=== PATIENT | female | born 1995 | race Caucasian/White ===

== ENCOUNTER → 2018-10-29 17:31 | Outpatient (CLI) | payer OTHER, SELFPAY ==
[2018-10-29 16:16] VITALS: BMI 33.7
[2018-10-29 17:49] LABS: Protein, Urine (Random) < 6.0 mg/dL (<11.9)
== END ==
PROVIDERS: Referring Provider Obstetrics & Gynecology; Visit Provider Obstetrics & Gynecology
DX: O16.9 Unspecified maternal hypertension, unspecified trimester (principal); Z3A.00 Weeks of gestation of pregnancy not specified
CPT/HCPCS: 82570; 84156

== ENCOUNTER → 2018-12-23 15:07 | Outpatient (CLI) | payer OTHER, SELFPAY ==
[2018-12-23 15:00] VITALS: BMI 33.7
[2018-12-23 16:22] LABS: Absolute Lymphocyte Count 2.01 X10^3/ul (0.83-4.51); Basophil# 0.01 X10^3/uL; Basophil% 0.1 % (0-1); Eosinophil# 0.11 X10^3/uL; Eosinophils% 1.1 % (0-5); Hematocrit 29.6 % (37-47); Hemoglobin 9.7 g/dl (12.0-15.0); Lymphocyte # 2.01 X10^3/ul (4.0); Lymphocyte % 20.3 % (19-41); Mean Corp Hgb Conc 32.8 g/gl (32-36); Mean Corpuscular Hgb 29.4 pg (27.0-32.0); Mean Corpuscular Volume 89.7 fL (81-99); Mean Platelet Vol. 9.3 fl (6.2-12.0); Monocyte# 0.79 X10^3/uL; Neutrophil # 6.96 X10^3/uL (2.7-7.7); Neutrophil % 70.1 % (47-70); Platelet Count 361 K/mm3 (150-450); RBC Distribution Width CV 13.5 % (11.6-14.6); RBC Distribution Width SD 43.8 fl (35.1-43.9); White Blood Count 9.9 K/mm3 (4.4-11.0)
[2018-12-23 16:25] LABS: POSITIVE COUNT NO; POSITIVE DIFFERENTIAL NO; POSITIVE MORPHOLOGY NO
[2018-12-23 16:47] LABS: Glucose Challenge Gest 1H 50g 105 mg/dL (70-140)
== END ==
PROVIDERS: Family Provider Internal Medicine; PCP Internal Medicine; Referring Provider Nurse Practitioner Women's Health; Visit Provider Nurse Practitioner Women's Health
DX: O09.00 Supervision of pregnancy with history of infertility, unspecified trimester (principal); Z3A.00 Weeks of gestation of pregnancy not specified
CPT/HCPCS: 36415; 82950; 85025

== ENCOUNTER → 2019-01-20 13:40 | Outpatient (CLI) | payer OTHER, SELFPAY ==
[2019-01-07 09:17] VITALS: BMI 33.7
[2019-01-18 16:32] VITALS: BMI 33.7
--- NOTE | 2019-01-20 13:43 | US_ITS ---
STUDY: SECOND AND THIRD TRIMESTER OBSTETRICAL ULTRASOUND - LIMITED REASON FOR EXAM: Female, 23 years old. growth. History of maternal hypertension. LMP: Unknown. Estimated due date March 14, 2019 is provided. PRIOR ULTRASOUND: None. TECHNIQUE: Transabdominal and Transvaginal, the latter used to optimize detail. TECHNICAL QUALITY: Adequate. FINDINGS: There is a single intrauterine fetus. The fetus is in a cephalic presentation. There is demonstrated cardiac activity with a heart rate of 138 bpm. There is a normal amniotic fluid volume. The largest amniotic fluid pocket measures 2.2 x 4.6 cm. The amniotic fluid index (CLAUS) is 13.1 cm. The placenta is anterior in location and is not low lying. There are Grade 1 placental changes. The cervix measures 3.8 cm cm in length and is closed with perhaps trace endocervical fluid. The adnexa are not visualized. BIOMETRY: BPD: 8.3 cm: 33 weeks, 4 days HC: 30.3 cm3: 3 weeks, 5 days AC: 29.0 cm: 33 weeks, 1 days FL: 6.4 cm: 33 weeks, 1 days FL/BPD: 77% FL/AC: 22% HC/AC: 1.05 Age by given BRANDYN: 32 weeks, 3 days. Given BRANDYN: March 14, 2019. age by current US: 33 weeks, 3 days. BRANDYN by current US: March 07, 2019. Estimated weight: 2124 grams, +/- 310 grams, 62 percentile. US/OB Limited With Biometrics IMPRESSION: 1. Single living intrauterine fetus in cephalic presentation at estimated gestational age of 33 weeks, 3 days. Estimated date of delivery by today's study is March 07, 2019. 2. Estimated weight is 2124 g. 3. Grade 1 anterior placenta is not low lying. 4. Normal amniotic fluid volume with an index of 13.1 cm. 5. The cervix is closed. Cervical length is 3.8 cm. Electronically Signed: Derek Gonzalez MD at 19:56 EDT , Service support ,
== END ==
PROVIDERS: Family Provider Internal Medicine; PCP Internal Medicine; Referring Provider Obstetrics & Gynecology; Visit Provider Obstetrics & Gynecology
DX: O09.00 Supervision of pregnancy with history of infertility, unspecified trimester (principal); Z3A.33 33 weeks gestation of pregnancy
CPT/HCPCS: 76816

== ENCOUNTER → 2019-01-24 13:47 | Outpatient (CLI) | payer OTHER, SELFPAY ==
[2019-01-18 16:32] VITALS: BMI 33.7
--- NOTE | 2019-01-24 13:51 | US_ITS ---
STUDY: SECOND AND THIRD TRIMESTER OBSTETRICAL ULTRASOUND - LIMITED REASON FOR EXAM: Female, 23 years old. Hypertension. Fluid check. LMP: June 07, 2018. PRIOR ULTRASOUND: Comparison is made with prior study dated January 20, 2019. TECHNIQUE: Transabdominal TECHNICAL QUALITY: Adequate. FINDINGS: There is a single intrauterine fetus. The fetus is in a cephalic presentation. There is demonstrated cardiac activity with a heart rate of 153 bpm. There is a normal amniotic fluid volume. The largest amniotic fluid pocket measures 7.9 cm. The amniotic fluid index (CLAUS) is 16.7 cm. The placenta is anterior in location and is not low lying. There are Grade 1 placental changes. The cervix measures 3.7 cm in length. Age by LMP: 33 weeks, 0 days. BRANDYN by LMP: March 14, 2019. age by prior US: 34 weeks, 0 days. BRANDYN by prior US: March 07, 2019. US/OB Limited (No Biometrics) IMPRESSION: Limited study for assessment of amniotic fluid. Amniotic fluid is normal. Electronically Signed: Yassine Mendes, at 14:18 EDT , Service support ,
== END ==
LOC: OPUS 13:47
PROVIDERS: Family Provider Internal Medicine; PCP Internal Medicine; Referring Provider Obstetrics & Gynecology; Visit Provider Obstetrics & Gynecology
DX: O09.00 Supervision of pregnancy with history of infertility, unspecified trimester (principal); Z3A.00 Weeks of gestation of pregnancy not specified
CPT/HCPCS: 76815

== ENCOUNTER → 2019-02-04 14:10 | Outpatient (CLI) | payer OTHER, SELFPAY ==
[2019-01-18 16:32] VITALS: BMI 33.7
[2019-02-01 14:08] VITALS: BMI 33.7
--- NOTE | 2019-02-04 14:12 | US_ITS ---
STUDY: SECOND AND THIRD TRIMESTER OBSTETRICAL ULTRASOUND - LIMITED REASON FOR EXAM: Female, 23 years old. Amniotic fluid assessment. LMP: June 07, 2018. PRIOR ULTRASOUND: Comparison is made with prior study dated January 24, 2019. TECHNIQUE: Transabdominal TECHNICAL QUALITY: Adequate. FINDINGS: There is a single intrauterine fetus. The fetus is in a cephalic presentation. There is demonstrated cardiac activity with a heart rate of 144 bpm. There is a normal amniotic fluid volume. The largest amniotic fluid pocket measures 3.7 cm. The amniotic fluid index (CLAUS) is 13.54 cm. The placenta is anterior in location and is not low lying. There are Grade 1 placental changes. The cervix measures 3.8 cm in length. BIOMETRY: Age by LMP: 34 weeks, 4 days. BRANDYN by LMP: March 14, 2019. age by prior US: 35 weeks, 4 days. BRANDYN by prior US: March 07, 2019. US/OB Limited (No Biometrics) IMPRESSION: Limited assessment for assessment of amniotic fluid. Amniotic fluid is normal. Electronically Signed: Yassine Mendes, at 10:33 EDT , Service support ,
== END ==
LOC: OPUS 14:11
PROVIDERS: Family Provider Internal Medicine; PCP Internal Medicine; Referring Provider Obstetrics & Gynecology; Visit Provider Obstetrics & Gynecology
DX: O09.00 Supervision of pregnancy with history of infertility, unspecified trimester (principal)
CPT/HCPCS: 76815

== ENCOUNTER 2019-02-08 12:05 | Outpatient (CLI) | payer OTHER, SELFPAY ==
[2019-02-01 14:08] VITALS: BMI 33.7
[2019-02-08 12:53] VITALS: BMI 36.1
[2019-02-08 13:10] LABS: ROM Internal Control Test YES-OK TO RESULT pt. (Internal QC)
[2019-02-08 13:11] LABS: ROM Patient Test Negative (Negative)
--- NOTE | 2019-02-10 23:08 | OB.TRI.PN ---
Progress Notes Date of Service: 02/08/19 Progress Note: patient co increased discharge possible LOF, irregular ctx ROM plus negative fht 130 moderate variability reactive no decelerations category I tracing [place]: irregular a/p false labor negative for ROM dc home labor precautions Laboratory Studies: Laboratory Tests 02/08/19 Range/Units 12:35 Vag Amniotic Fld Detect Negative (Negative)
== END 2019-02-08 13:15 | disposition home or self-care (01) ==
LOC: WPOUT 12:08 → WP 12:08
PROVIDERS: Referring Provider Obstetrics & Gynecology; Visit Provider Obstetrics & Gynecology
DX: O47.9 False labor, unspecified (principal); Z3A.00 Weeks of gestation of pregnancy not specified
CPT/HCPCS: 59025; 59050; 84112; 99218; G0378

== ENCOUNTER → 2019-02-11 08:50 | Outpatient (CLI) | payer OTHER, SELFPAY ==
[2019-01-18 16:32] VITALS: BMI 33.7
[2019-02-08 12:53] VITALS: BMI 36.1
--- NOTE | 2019-02-11 08:53 | US_ITS ---
STUDY: SECOND AND THIRD TRIMESTER OBSTETRICAL ULTRASOUND - LIMITED REASON FOR EXAM: Female, 23 years old. Amniotic fluid index assessment, follow-up. LMP: 06/07/2018 PRIOR ULTRASOUND: 02/04/2019, 01/24/2019, 01/20/2019 TECHNIQUE: Transabdominal ultrasound evaluation was performed. FINDINGS: Single live intrauterine gestation, cephalic presentation, cardiac rate 135 bpm. Amniotic fluid index 14 cm, maximum vertical pocket 4.3 cm. Placenta anterior, not low-lying, grade 1. Cervical length 3.5 cm, closed. The maternal adnexa are not characterized. Biometrics are not characterized. US/OB Limited (No Biometrics) IMPRESSION: Normal amniotic fluid index. Electronically Signed: Carlos Kinney MD at 16:02 EDT Tel , Service support ,
== END ==
LOC: OPUS 08:52
PROVIDERS: Family Provider Internal Medicine; PCP Internal Medicine; Referring Provider Obstetrics & Gynecology; Visit Provider Obstetrics & Gynecology
DX: O10.919 Unspecified pre-existing hypertension complicating pregnancy, unspecified trimester (principal); Z3A.00 Weeks of gestation of pregnancy not specified
CPT/HCPCS: 76815

== ENCOUNTER → 2019-02-16 13:57 | Outpatient (CLI) | payer OTHER, SELFPAY ==
[2019-01-07 09:17] VITALS: BMI 33.7
[2019-02-11 14:10] VITALS: BMI 36.1
--- NOTE | 2019-02-16 14:00 | US_ITS ---
STUDY: SECOND AND THIRD TRIMESTER OBSTETRICAL ULTRASOUND - LIMITED REASON FOR EXAM: Female, 23 years old. growth. Hypertension. PRIOR ULTRASOUND: 02/11/2019 TECHNIQUE: Transabdominal ultrasound evaluation was performed. FINDINGS: There is a single intrauterine fetus. The fetus is in a cephalic presentation. There is demonstrated cardiac activity with a heart rate of 132 bpm. There is a normal amniotic fluid volume. The largest amniotic fluid pocket measures 4.3 cm. The amniotic fluid index (CLAUS) is 10.0 cm. The placenta is anterior in location and is not low lying. The cervix is not visualized. BIOMETRY: BPD: 9.3 cm: 37 weeks, 5 days HC: 33.1 cm: 37 weeks, 6 days AC: 33.0 cm: 37 weeks, 0 days FL: 7.2 cm: 37 weeks, 0 days age by prior US: 37 weeks, 3 days. BRANDYN by prior US: 03/06/2019. age by current US: 37 weeks, 2 days. BRANDYN by current US: 03/07/2019. Estimated weight: 3117 grams, +/- 455 grams, 74 percentile. US/OB Limited With Biometrics IMPRESSION: Single live intrauterine gestation at approximately 37 weeks and 3 days based on the current ultrasound. Electronically Signed: Raza Quinones, at 16:59 EDT Tel , Service support ,
== END ==
PROVIDERS: Family Provider Internal Medicine; PCP Internal Medicine; Referring Provider Obstetrics & Gynecology; Visit Provider Obstetrics & Gynecology
DX: O10.919 Unspecified pre-existing hypertension complicating pregnancy, unspecified trimester (principal); Z3A.37 37 weeks gestation of pregnancy
CPT/HCPCS: 76816

== ENCOUNTER → 2019-02-18 16:48 | Outpatient (CLI) | payer OTHER, SELFPAY ==
[2019-02-18 14:45] VITALS: BMI 36.1
== END ==
PROVIDERS: Family Provider Internal Medicine; PCP Internal Medicine; Referring Provider Nurse Practitioner Women's Health; Visit Provider Nurse Practitioner Women's Health
DX: Z34.93 Encounter for supervision of normal pregnancy, unspecified, third trimester (principal)
CPT/HCPCS: 87081

== ENCOUNTER → 2019-02-23 12:49 | Outpatient (CLI) | payer OTHER, SELFPAY ==
[2019-01-18 16:32] VITALS: BMI 33.7
[2019-02-18 14:45] VITALS: BMI 36.1
--- NOTE | 2019-02-23 12:55 | US_ITS ---
STUDY: SECOND AND THIRD TRIMESTER OBSTETRICAL ULTRASOUND - LIMITED REASON FOR EXAM: Female, 23 years old. Amniotic fluid index. LMP: June 17, 2018. PRIOR ULTRASOUND: Comparison is made with prior study dated February 16, 2019 TECHNIQUE: Transabdominal TECHNICAL QUALITY: Adequate. FINDINGS: There is a single intrauterine fetus. The fetus is in a cephalic presentation. There is demonstrated cardiac activity with a heart rate of 142 bpm. There is a normal amniotic fluid volume. The largest amniotic fluid pocket measures 4.1 cm. The amniotic fluid index (CLAUS) is 11.4 cm. The placenta is anterior in location and is not low lying. There are Grade 2 placental changes Age by LMP: 37 weeks, 2 days. BRANDYN by LMP: March 14, 2019. age by prior US: 38 weeks, 2 days. BRANDYN by prior US: March 07, 2019. US/OB Limited (No Biometrics) IMPRESSION: Normal amniotic fluid Electronically Signed: Yassine Mendes, at 10:57 EDT , Service support ,
== END ==
PROVIDERS: Family Provider Internal Medicine; PCP Internal Medicine; Referring Provider Obstetrics & Gynecology; Visit Provider Obstetrics & Gynecology
DX: Z34.90 Encounter for supervision of normal pregnancy, unspecified, unspecified trimester (principal)
CPT/HCPCS: 76815

== ENCOUNTER → 2019-02-25 13:18 | Outpatient (CLI) | payer OTHER, SELFPAY ==
[2019-02-25 13:06] VITALS: BMI 35.9
[2019-02-25 14:34] LABS: Protein, Urine (Random) 22.5 mg/dL (<11.9); Protein:Creat Ratio 194 mg/g CRE (0-200)
[2019-02-25 15:26] LABS: Absolute Lymphocyte Count 1.79 X10^3/ul (0.83-4.51); Absolute Neutrophil Count 6.8 X10^3/uL (2.0-7.7); Basophil# 0.02 X10^3/uL; Basophil% 0.2 % (0-1); Eosinophil# 0.05 X10^3/uL; Eosinophils% 0.5 % (0-5); Hematocrit 32.7 % (37-47); Hemoglobin 10.5 g/dl (12.0-15.0); Lymphocyte # 1.79 X10^3/ul (4.0); Lymphocyte % 19.2 % (19-41); Mean Corp Hgb Conc 32.1 g/gl (32-36); Mean Corpuscular Hgb 27.6 pg (27.0-32.0); Mean Corpuscular Volume 85.8 fL (81-99); Mean Platelet Vol. 9.7 fl (6.2-12.0); Monocyte# 0.62 X10^3/uL; Monocyte% 6.7 % (0-10); Neutrophil # 6.82 X10^3/uL (2.7-7.7); Neutrophil % 73.3 % (47-70); Platelet Count 395 K/mm3 (150-450); RBC Distribution Width CV 14.3 % (11.6-14.6); RBC Distribution Width SD 44.8 fl (35.1-43.9); Red Blood Count 3.81 M/mm3 (4.2-5.4); White Blood Count 9.3 K/mm3 (4.4-11.0)
[2019-02-25 15:47] LABS: POSITIVE COUNT NO; POSITIVE DIFFERENTIAL NO; POSITIVE MORPHOLOGY NO
[2019-02-25 16:34] LABS: ALB/GLOB Ratio 0.8 RATIO (0.9-2.4); AST(SGOT) 14 U/L (15-37); Alanine Aminotransfer ALT/SGPT 14 U/L (13-56); Alkaline Phosphatase 156 U/L (45-117); Anion Gap 11 (5-15); BUN 6 mg/dL (7-18); BUN/Creat Ratio 11.6 RATIO (10-20); Calcium,Total 8.7 mg/dL (8.5-10.1); Chloride 107 mmol/L (98-107); Creatinine, Serum 0.52 mg/dL (0.55-1.02); EST Glomerular Filtration Rate 157 mL/min (>60); Est Glom Filt Rate - Afr Amer 189 mL/min (>60); Glucose 64 mg/dL (74-106); LDH 195 U/L (84-246); Potassium 3.8 mmol/L (3.5-5.1); Sodium Level 139 mmol/L (136-145); Uric Acid 3.4 mg/dL (2.6-6.0)
== END ==
PROVIDERS: Nurse Practitioner Women's Health; Family Provider Internal Medicine; PCP Internal Medicine; Referring Provider Obstetrics & Gynecology; Visit Provider Obstetrics & Gynecology
DX: O10.919 Unspecified pre-existing hypertension complicating pregnancy, unspecified trimester (principal); Z3A.00 Weeks of gestation of pregnancy not specified
CPT/HCPCS: 36415; 80053; 82570; 83615; 84156; 84550; 85025

== ENCOUNTER 2019-03-01 06:50 | Inpatient (IN) | payer OTHER, SELFPAY ==
[2019-03-01 06:55] VITALS: BMI 35.9
[2019-03-01 07:50] VITALS: BMI 35.9
[2019-03-01] MEDS: Lactated Ringers 1,000 ML 50 ML IV ×3 (07:50→19:27)
[2019-03-01] MEDS: 0.9% Normal Saline 100 ML IV.SOLN. INTRA-UTER (08:07)
--- NOTE | 2019-03-01 08:16 | HP.PCM_ITS ---
- Problem List (1) Chronic hypertension affecting Status: Chronic Comment: growth scan q 4 weeks, weekly nst/idris after 32 weeks (2) Anemia Status: Acute Qualifiers: Comment: FE added (3) Bipolar disorder Status: Chronic Qualifiers: Comment: on prozac, adderall and lamictal in past, consult dr bernal (4) Status: Acute Qualifiers: Comment: NIPT nl JORGE A RGI; anatomy done 10/22/18- normal eval f/u anatomy- resolution of the right outflow tract and profile was suboptimal. needs repeat scan in 2 weeks. repeat us complete and wnl. (5) Supervision of with history of infertility Status: Acute Comment: PRR BRANDYN 03/14/19 boy Sawyer Ashu History Date of Admission: 03/01/19 Final BRANDYN: 03/14/19 Gestational age: 38 Weeks and 1 Days History of this : This is a 23 year-old, at 38 weeks gestational age presents for IOL secondary to cHTN. she denies any vb lof good fm, no regular ctx. Medical History: Medical History (Last Reviewed 02/25/19 @ 13:07 by Aarti Lees) Anxiety F41.9 Bipolar disorder F31.9 Depression F32.9 Surgical History: Surgical History (Last Reviewed 02/25/19 @ 13:07 by Aarti Lees) History of hysterosalpingogram Z98.890 Allergies prednisone Allergy (Mild, Verified 02/25/19 13:07) Other rash; nausea Home Medications: Home Medications folic acid 400 mcg tablet 0.4 mg PO DAILY 09/02/18 vitamin#30 30 mg iron-10 mg iron-folic acid 1 mg-omg3 capsule cap PO cap 09/02/18 labetalol 100 mg tablet 100 mg PO BID #60 tab 11/26/18 Smoking Status: Never smoker History Past Pregnancies: Past Pregnancies Delivery Date Name GA/Weeks Outcome Route Weight Infant Gender Labor Length Anesthesia Delivery Location Provider FOB Labs: Mom's Labs & Results 03/01/19 03/01/19 07:50 07:50 WBC Pending RBC Pending Hgb Pending Hct Pending MCV Pending MCH Pending MCHC Pending RDW Pending RDW Differential Pending Plt Count Pending Neut % (Auto) Pending Absolute Neuts (auto) Pending Total Counted Pending Blood Type Pending Antibody Screen Pending Social History Smoking Status Never smoker Expected Infant Delivery Method: Spontaneous Vaginal Review of Systems Constitutional: Denies: Fever, Malaise Eyes: Denies: Blurred vision, Vision Change HEENT: Denies: Head Aches, Visual Changes Cardiovascular: Denies: Chest Pain, Palpitations Respiratory: Denies: Cough, Shortness of Breath, Wheezing Gastrointestinal: Denies: Abdominal Pain, Diarrhea, Nausea, Vomiting Genitourinary: Denies: Dysuria, Hematuria Musculoskeletal: Denies: Joint Pain, Muscle pain Skin: Denies: Lesions, Rash Neurological: Denies: Blurred vision, Focal weakness, Headaches Psychiatric: Denies: Anxiety, Depression Endocrine: Denies: Heat/ Cold Intolerance Hematologic/ Lymphatic: Denies: Easy Bruising, Easy Bleeding Physical Exam General: Alert, Cooperative, No apparent distress HEENT: Atraumatic, Normocephalic. Negative for: Thyromegaly, Lymphadenopathy Cardiovascular: Regular rate Lungs: Normal air movement Abdomen: Soft, Non Tender, Gravid Neurological: Deep Tendon Reflexes 2+/4 and Symmetrical, Neuro grossly intact. Negative for: Clonus FI[employer] ASSOCIATE: Normal external genitalia. Negative for: Vulvar lesions Estimated gestational size: Appropriate for gestational size Presentation: Cephalic Cervix Dilation (cm): 1.5 Station: -2 Effacement (%): 40 Assessment/Plan All Active Problems (Last Reviewed 02/25/19 @ 13:07 by Aarti Lees) Anemia (Acute) (Acute) Supervision of with history of infertility (Acute) This is a 23 year-old, , at 38 weeks gestational age present sfor IOL cHTN. Patient presents IOL, plan management for , pitocin/AROM Mandujano bulb placed.. Pain management: Plans epidural. GBS negative. Management of any complications: Chronic hypertension, blood pressures within normal limits. I have reviewed the [facility] and made any clinically relevant updates.
[2019-03-01 08:21] LABS: Absolute Lymphocyte Count 1.95 X10^3/ul (0.83-4.51); Absolute Neutrophil Count 5.8 X10^3/uL (2.0-7.7); Basophil# 0.02 X10^3/uL; Basophil% 0.2 % (0-1); Eosinophils% 1.2 % (0-5); Hemoglobin 9.7 g/dl (12.0-15.0); Lymphocyte # 1.95 X10^3/ul (4.0); Lymphocyte % 23.4 % (19-41); Mean Corp Hgb Conc 32.3 g/gl (32-36); Mean Corpuscular Hgb 27.5 pg (27.0-32.0); Mean Platelet Vol. 9.6 fl (6.2-12.0); Monocyte# 0.45 X10^3/uL; Monocyte% 5.4 % (0-10); Neutrophil # 5.79 X10^3/uL (2.7-7.7); Neutrophil % 69.7 % (47-70); Platelet Count 360 K/mm3 (150-450); RBC Distribution Width CV 14.5 % (11.6-14.6); Red Blood Count 3.53 M/mm3 (4.2-5.4); White Blood Count 8.3 K/mm3 (4.4-11.0)
[2019-03-01 08:24] LABS: POSITIVE COUNT NO; POSITIVE DIFFERENTIAL NO; POSITIVE MORPHOLOGY NO
[2019-03-01] MEDS: Oxytocin 30 units/NS 500 ml 30 UNITS/500 ML IV.SOLN IV (09:01)
[2019-03-01] MEDS: Acetaminophen 325 MG Tablet PO (11:53)
[2019-03-01] MEDS: Ondansetron 4 MG/2 ML Vial IV (12:30)
[2019-03-01] MEDS: Nalbuphine 10 MG/ML Ampul IV (12:43)
[2019-03-01 14:00] LABS: Chlamydia Trachomatis by PCR Negative (Negative); Neisserai gonorrhoeae by PCR Negative (Negative); Probe Check PASS; Sample Adequacy Control PASS; Specimen Processing Control PASS
[2019-03-01] MEDS: fentaNYL-bupivacaine (epidural) 100 ML BAG EPIDURAL ×2 (15:44→20:10)
--- NOTE | 2019-03-01 23:08 | PCM.PN.BLA ---
Progress Note heart tones 130s moderate variability reactive no decelerations category 1 tracing. Contractions adequate and Pitocin at 18 milliunits. Patient has experienced an arrest of dilation at 5 cm therefore Pitocin washout is being performed and then will be restarted at half the previous dose and will continue up. Expectant management discussed with patient
[2019-03-02] MEDS: fentaNYL-bupivacaine (epidural) 100 ML BAG EPIDURAL ×2 (00:47→06:01)
[2019-03-02] MEDS: Lactated Ringers 1,000 ML 50 ML IV ×2 (00:55→06:44)
[2019-03-02] MEDS: Oxytocin 30 units/NS 500 ml 30 UNITS/500 ML IV.SOLN 334 UNITS IV (07:39)
[2019-03-02] MEDS: Oxytocin 30 units/NS 500 ml 30 UNITS/500 ML IV.SOLN 167 UNITS IV (08:09)
--- NOTE | 2019-03-02 08:35 | PCM.OPRPT ---
Problem List (1) Chronic hypertension affecting Status: Chronic Comment: growth scan q 4 weeks, weekly nst/idris after 32 weeks (2) Anemia Status: Acute Qualifiers: Comment: FE added (3) Bipolar disorder Status: Chronic Qualifiers: Comment: on prozac, adderall and lamictal in past, consult dr bernal (4) Status: Acute Qualifiers: Comment: NIPT nl JORGE A RGI; anatomy done 10/22/18- normal eval f/u anatomy- resolution of the right outflow tract and profile was suboptimal. needs repeat scan in 2 weeks. repeat us complete and wnl. (5) Supervision of with history of infertility Status: Acute Comment: PRR BRANDYN 03/14/19 boy Calem Ashu Vaginal Delivery Maternal Presentation: Medically Indicated Induction iol chtn Method of Induction: Pitocin, Mandujano Bulb Medical Reason for Induction: - - cHTN Amniotic Membrane Rupture Type: Artificial Amniotic Fluid Description: Clear Final BRANDYN: 03/14/19 Gestational age: 38 Weeks and 2 Days Date of Procedure: 03/02/19 Pre-Operative Diagnosis: iol chtn Post-Operative Diagnosis: same Surgery/ Procedure Performed: Spontaneous Vaginal Delivery Type of Anesthesia: Epidural Description of Procedure: patient began pushing and delivered the head in the ALLISON]presentation. The head was delivered atraumatically and a loose nuchal cord ?1 was identified and easily reduced over the infant's head. The anterior and posterior shoulders delivered without complication followed by the rest of the and the was placed on the maternal abdomen. Delayed cord clamping was employed for approximately 60 seconds. Cord was clamped and cut and gentle traction was applied to the cord and the placenta delivered spontaneously immediately following it was noted to be intact with three-vessel cord. The perineum and vagina were inspected and noted to have no laceration. EBL was 200 cc. Patient and tolerated delivery well. Presentation: ALLISON Placental Delivery Description: Spontaneous Placenta Disposition: [facility] Cord Vessel Description: 3 Vessels Estimated Blood Loss: 200 Infant A gender: Female Episiotomy Description: None Laceration: None Medications given after delivery: IV Pitocin Complications: None
[2019-03-02] MEDS: Naproxen 250 MG Tablet 500 MG PO ×2 (11:57→20:28)
[2019-03-02 12:00] VITALS: BP 132/74; PULSE 98; TEMP 2.4; TEMP 36.3; O2SAT 100
[2019-03-02 16:00] VITALS: BP 124/59; PULSE 99; TEMP 36.9; O2SAT 96
[2019-03-02 20:15] VITALS: BP 129/69; PULSE 87; RESP 18; TEMP 36.7; O2SAT 100
[2019-03-03 00:15] VITALS: BP 130/71; PULSE 86; RESP 18; TEMP 36.7
[2019-03-03 03:35] VITALS: BP 125/61; PULSE 81; RESP 18; TEMP 36.2
[2019-03-03 08:00] VITALS: BP 115/57; PULSE 78; RESP 16; TEMP 36.4
--- NOTE | 2019-03-03 12:08 | PCM.PN.OB ---
Subjective: doing well no complaints pain controlled no CP SOB N V ambulating well tolerating po lochia moderate, going well - Physical Exam General: Alert, Oriented x3 Vital Signs Temp Pulse Resp BP Pulse Ox 97.5 F L 78 16 115/57 L 100 03/03/19 08:00 03/03/19 08:00 03/03/19 08:00 03/03/19 08:00 03/02/19 20:15 Oxygen Delivery Method Room Air Weight: 222 lb 10.67 oz Body Mass Index (BMI) 35.9 Intake and Output for Last 24 Hours 03/01/19 03/02/19 03/03/19 23:59 23:59 23:59 Intake Total 3659.8 / 3659.8 3095 / 3095 Output Total 2900 / 2900 2100 / 2100 Balance 759.8 / 759.8 995 / 995 Medical Necessity - Tobacco Use Smoking Status: Never smoker Assessment/Plan All Active Problems (Last Reviewed 02/25/19 @ 13:07 by Aarti Lees) Anemia (Acute) (Acute) Supervision of with history of infertility (Acute) s/p PPD # 1 1. routine post delivery care 2. breast feeding- support given 3. rh positive 4. rubella immune
[2019-03-03 13:15] VITALS: BP 128/68; PULSE 96; RESP 18; TEMP 36.3
[2019-03-03 16:30] VITALS: BP 134/63; PULSE 81; RESP 16; TEMP 36.8
[2019-03-03 20:20] VITALS: BP 134/78; PULSE 79; RESP 16; TEMP 36.9
[2019-03-03] MEDS: Labetalol 100 MG Tablet PO (22:10)
[2019-03-03] MEDS: FLUoxetine 20 MG Capsule PO (22:10)
[2019-03-03] MEDS: Naproxen 250 MG Tablet 500 MG PO (22:18)
--- NOTE | 2019-03-04 01:41 | DCINST_ITS ---
Discharge Diet: No Restrictions Discharge Activity: Return to Normal Activity, May not drive while taking narcotic pain medications., May Shower May resume sexual activity in: 4-6 weeks Call your doctor if your incision/area has: Continuous Slow Oozing, Sudden Increased Bleeding, Increased Pain/ Swelling, Increased Redness, Foul Smelling Discharge Additional Instructions: If you experience any of the following, contact your healthcare provider. * Bleeding that soaks a pad every hour for 2 hours * Fever 100.4 or higher * Unrelieved incision or abdominal pain * Swelling, redness, discharge or bleeding from your incision or episiotomy site * Your incision begins to separate * Problems urinating (including inability to urinate or burning while urinating). * Visual changes * Severe headache * Flu-like symptoms * Pain or redness in one of both of your breasts * Pain, warmth, tenderness or swelling in your legs, especially the calf area * Frequent nausea and vomiting * Symptoms of depression or anxiety If you experience any of the following, call 911 or go to the nearest Emergency Room. * Chest pain * Problems breathing * Seizure activity * Partial or complete paralysis of a body part, slurred speech, weakness or drooping of the face, or a sudden inability to walk or hold your balance Allergies/Adverse Reactions: Allergies prednisone Allergy (Mild, Verified 03/01/19 08:17) Other rash; nausea Medications to take at Discharge folic acid 400 mcg tablet 0.4 mg PO DAILY 09/02/18 vitamin#30 30 mg iron-10 mg iron-folic acid 1 mg-omg3 capsule 1 cap PO DAILY cap 09/02/18 Doxylamine Succinate/Vit B6 [Bonjesta ER 20-20 mg Tablet] 1 tab PO DAILY 03/01/19 Labetalol [Trandate (Beta Bradley)] 100 mg PO BID 03/01/19 Naproxen [Naprosyn] 250 - 500 mg PO Q8H PRN PRN #30 tab 03/04/19 The following prescriptions were given: Naproxen [Naprosyn] 250 - 500 mg PO Q8H PRN PRN #30 tab PRN Reason: MILD PAIN Transmission Status: Pending to [facility] Please Follow Up With: Destini Villasenor MD - [phone] When: Call to make an appointment with your doctor in 6 weeks. If you had elevated Blood pressure or 4th degree laceration you will need to be seen in 2 weeks. Primary Care Physician: Marco Romano MD [Primary Care Provider] - Test Results: Test results from this visit will be discussed in further detail at your follow- up appointment, if applicable.
[2019-03-04 02:14] VITALS: BP 128/74; PULSE 88; RESP 18; TEMP 36.6; O2SAT 98
--- NOTE | 2019-03-04 08:26 | PCM.PN.OB ---
Subjective: doing well no complaints pain controlled no CP SOB N V ambulating well tolerating po lochia moderate, going well - Physical Exam General: Alert, Oriented x3 Abdomen: Soft, Non Tender, Non-Distended, - - FF below U Vital Signs Temp Pulse Resp BP Pulse Ox 97.8 F 88 18 128/74 H 98 03/04/19 02:14 03/04/19 02:14 03/04/19 02:14 03/04/19 02:14 03/04/19 02:14 Oxygen Delivery Method Room Air Weight: 222 lb 10.67 oz Body Mass Index (BMI) 35.9 Intake and Output for Last 24 Hours 03/02/19 03/03/19 03/04/19 23:59 23:59 23:59 Intake Total 3095 / 3095 Output Total 2100 / 2100 Balance 995 / 995 Medical Necessity - Tobacco Use Smoking Status: Never smoker Assessment/Plan All Active Problems (Last Reviewed 02/25/19 @ 13:07 by Aarti Lees) Anemia (Acute) (Acute) Supervision of with history of infertility (Acute) s/p PPD # 2 1. routine post delivery care 2. breast feeding- support given 3. rh positive 4. rubella immune 5. blood pressure WNL 6. home today
[2019-03-04 09:15] VITALS: BP 131/72; PULSE 83; RESP 16; TEMP 36.7; O2SAT 98
[2019-03-04] MEDS: Labetalol 100 MG Tablet PO (09:27)
[2019-03-04] MEDS: Naproxen 250 MG Tablet 500 MG PO (09:27)
== END 2019-03-04 11:45 | disposition home or self-care (01) | DRG 807 ==
PROVIDERS: Admitting Provider Obstetrics & Gynecology; Family Provider Internal Medicine; PCP Internal Medicine; Referring Provider Obstetrics & Gynecology; Visit Provider Obstetrics & Gynecology
DX: O10.92 Unspecified pre-existing hypertension complicating childbirth (principal); Z37.0 Single live birth; O62.0 Primary inadequate contractions; O99.344 Other mental disorders complicating childbirth; F31.9 Bipolar disorder, unspecified; O99.02 Anemia complicating childbirth; D64.9 Anemia, unspecified; O69.81X0 Labor and delivery complicated by cord around neck, without compression, not applicable or unspecified; Z3A.38 38 weeks gestation of pregnancy
CPT/HCPCS: 59025; 59050; 85025; 86850; 86900; 87491; 87591; 99218; J7120; G0378; J2405

== ENCOUNTER → 2019-04-14 17:54 | Outpatient (CLI) | payer OTHER, SELFPAY ==
[2019-04-14 16:01] VITALS: BMI 35.9
[2019-04-20 09:46] LABS: HPV Reflexed? NOT INDICATED
== END ==
PROVIDERS: Family Provider Internal Medicine; PCP Internal Medicine; Referring Provider Nurse Practitioner Women's Health; Visit Provider Nurse Practitioner Women's Health
DX: Z12.4 Encounter for screening for malignant neoplasm of cervix (principal)
CPT/HCPCS: 87624; 88175; G0145

== ENCOUNTER → 2020-05-21 | Outpatient (CLI) | payer MEDICAID, SELFPAY ==
[2020-05-21 14:59] VITALS: BMI 35.9
[2020-05-21 17:50] LABS: Amphetamine Urine VISTA NEGATIVE (<1000 ng/mL); Barbiturate Urine VISTA NEGATIVE (< 200 ng/mL); Benzodiazepine Urine VISTA NEGATIVE (< 200 ng/mL); Cocaine Urine VISTA NEGATIVE (< 300 ng/mL); Ecstacy Urine VISTA NEGATIVE (< 500 ng/mL); Methadone Urine VISTA NEGATIVE (< 300 ng/mL); PCP Urine VISTA NEGATIVE (< 25 ng/mL); THC Urine VISTA NEGATIVE (< 50 ng/mL); Vista UDS pH Range 6
[2020-05-24 04:11] LABS: Chlamydia By Nucleic Acid AMP Negative (Negative)
[2020-05-24 11:05] LABS: Gonococcus By Nucleic Acid AMP Negative (Negative)
== END | disposition home or self-care (01) ==
LOC: LABSPEC 16:48
PROVIDERS: PCP Internal Medicine; Referring Provider Obstetrics & Gynecology; Visit Provider Obstetrics & Gynecology
DX: O10.919 Unspecified pre-existing hypertension complicating pregnancy, unspecified trimester (principal); O99.210 Obesity complicating pregnancy, unspecified trimester; E66.9 Obesity, unspecified; O09.00 Supervision of pregnancy with history of infertility, unspecified trimester; Z3A.00 Weeks of gestation of pregnancy not specified
CPT/HCPCS: 80307; 87086; 87491; 87591

== ENCOUNTER → 2020-06-02 07:24 | Outpatient (CLI) | payer MEDICAID, SELFPAY ==
[2020-05-29 16:08] VITALS: BMI 35.9
[2020-06-02 08:36] LABS: Absolute Lymphocyte Count 1.73 X10^3/uL (0.83-4.51); Absolute Neutrophil Count 3.1 X10^3/uL (2.0-7.7); Basophil# 0.02 X10^3/uL; Basophil% 0.4 % (0-1); Eosinophils% 1.9 % (0-5); Hematocrit 36.1 % (37-47); Hemoglobin 12.2 g/dL (12.0-15.0); Lymphocyte # 1.73 X10^3/ul (4.0); Lymphocyte % 32.6 % (19-41); Mean Corp Hgb Conc 33.8 g/dL (32-36); Mean Corpuscular Hgb 30.3 pg (27.0-32.0); Mean Corpuscular Volume 89.6 fL (81-99); Mean Platelet Vol. 9.8 fl (6.2-12.0); Monocyte# 0.32 X10^3/uL; NRBC Flagged by Analyzer 0 % (0-5); Neutrophil # 3.13 X10^3/uL (2.7-7.7); Neutrophil % 58.9 % (47-70); Platelet Count 337 K/mm3 (150-450); RBC Distribution Width CV 12.7 % (11.6-14.6); RBC Distribution Width SD 41.8 fl (35.1-43.9); Red Blood Count 4.03 M/mm3 (4.2-5.4); White Blood Count 5.3 K/mm3 (4.4-11.0)
[2020-06-02 08:58] LABS: ALB/GLOB Ratio 0.9 RATIO (0.9-2.4); AST(SGOT) 11 U/L (15-37); Alanine Aminotransfer ALT/SGPT 19 U/L (13-56); Albumin, Serum 3.5 g/dL (3.2-5.0); Alkaline Phosphatase 48 U/L (45-117); Anion Gap 8 (5-15); BUN 8 mg/dL (7-18); BUN/Creat Ratio 11.6 RATIO (10-20); Calcium,Total 8.6 mg/dL (8.5-10.1); Chloride 109 mmol/L (98-107); Creatinine, Serum 0.69 mg/dL (0.55-1.02); EST Glomerular Filtration Rate 112 mL/min (>60); Est Glom Filt Rate - Afr Amer 135 mL/min (>60); Globulin 3.7 g/dL (2.2-4.2); Glucose 128 mg/dL (74-106); Glucose Challenge Gest 1H 50g 128 mg/dL (70-140); Potassium 3.5 mmol/L (3.5-5.1); Protein, Total 7.2 g/dL (6.4-8.2); Sodium Level 139 mmol/L (136-145)
[2020-06-04 10:55] LABS: HIV - WCH Non-Reactive (Nonreactive); Hepatitis B Surface Antigen Non-Reactive (Nonreactive); Hepatitis C Antibody Non-Reactive (Nonreactive); Rubella IgG 95.4 IU/mL
[2020-06-07 01:46] LABS: Rapid Plasmin Reagin (RPR) NONREACTIVE (NONREACTIVE)
== END ==
PROVIDERS: PCP Internal Medicine; Referring Provider Obstetrics & Gynecology; Visit Provider Obstetrics & Gynecology
DX: O09.00 Supervision of pregnancy with history of infertility, unspecified trimester (principal); O10.919 Unspecified pre-existing hypertension complicating pregnancy, unspecified trimester; O99.210 Obesity complicating pregnancy, unspecified trimester; E66.9 Obesity, unspecified; Z3A.00 Weeks of gestation of pregnancy not specified
CPT/HCPCS: 36415; 80053; 82950; 85025; 86592; 86703; 86762; 86803; 86850; 86900; 86901; 87340

== ENCOUNTER → 2020-06-04 06:47 | Outpatient (CLI) | payer MEDICAID, SELFPAY ==
[2020-05-29 16:08] VITALS: BMI 35.9
[2020-06-04 07:53] LABS: NATERA MAILED SPECIMEN
== END ==
PROVIDERS: PCP Internal Medicine; Referring Provider Obstetrics & Gynecology; Visit Provider Obstetrics & Gynecology
DX: Z34.81 Encounter for supervision of other normal pregnancy, first trimester (principal)
CPT/HCPCS: 36415

== ENCOUNTER → 2020-08-08 08:04 | Outpatient (CLI) | payer MEDICAID, SELFPAY ==
[2020-07-18 11:58] VITALS: BMI 33.7
--- NOTE | 2020-08-08 08:09 | US_ITS ---
STUDY: SECOND AND THIRD TRIMESTER OBSTETRICAL ULTRASOUND REASON FOR EXAM: Female, 25 years old ANATOMY LMP: 03/24/2020 TECHNIQUE: Transabdominal TECHNICAL QUALITY: Adequate. PRIOR ULTRASOUND: None. FINDINGS: There is a single intrauterine fetus. The fetus is in a variable presentation. There is demonstrated cardiac activity with a heart rate of 139 bpm. There is a normal amniotic fluid volume. The largest amniotic fluid pocket measures 5.7 cm. The amniotic fluid index (CLAUS) is within normal limits. The placenta is fundal in location. There are Grade 0 placental changes. The cervix measures 3.1 cm in length. The bilateral adnexal regions are normal. BIOMETRY: BPD: 4.75 cm: 20 weeks, 2 days HC: 16.6 cm: 90 weeks, 2 days AC: 13.97 cm: 19 weeks, 2 days FL: 2.87cm: 18 weeks, 5 days CI: 86% FL/BPD: 60% FL/HC: FL/AC: 21% HC/AC: 1.19 age by current US: 19 weeks, 2 days. BRANDYN by current US: 12/31/2020. Estimated weight: 277 grams, +/- 41 grams, 18 %. Age by LMP: 19 weeks, 4 days. BRANDYN by LMP: 12/29/2020. ANATOMY: Gender: Male Cranium: Normal lateral ventricles. Normal choroid plexus. Normal cerebellum. Normal cisterna magna. Normal face, nose and lips. Chest: Normal 4-chamber heart. Abdomen/Pelvis: Normal diaphragm. Normal stomach. Normal abdominal wall. Normal cord insertion. Normal 3 vessel cord. Normal kidneys. Normal bladder. Spine: Normal cervical spine. Normal thoracic spine. Normal lumbar spine. Normal sacrum. Extremities: Normal bilateral upper extremities. Normal bilateral lower extremities. US/OB Anatomy Scan IMPRESSION: Single live intrauterine gestation with a mean gestational age of 19 weeks and 2 days. Electronically Signed: Yassine Mendes, at 15:28 EST , Service support ,
== END ==
PROVIDERS: PCP Internal Medicine; Referring Provider Obstetrics & Gynecology; Visit Provider Obstetrics & Gynecology
DX: Z36.88 Encounter for antenatal screening for fetal macrosomia (principal)
CPT/HCPCS: 76805

== ENCOUNTER → 2020-10-10 13:33 | Outpatient (CLI) | payer MEDICAID, SELFPAY ==
[2020-10-10 09:03] VITALS: BMI 34.6
[2020-10-10 10:13] LABS: Absolute Lymphocyte Count 1.54 X10^3/uL (0.83-4.51); Basophil# 0.03 X10^3/uL; Basophil% 0.3 % (0-1); Eosinophil# 0.07 X10^3/uL; Eosinophils% 0.7 % (0-5); Hemoglobin 11.9 g/dL (12.0-15.0); Lymphocyte # 1.54 X10^3/ul (4.0); Lymphocyte % 15.1 % (19-41); Mean Corp Hgb Conc 33.1 g/dL (32-36); Mean Corpuscular Hgb 30.1 pg (27.0-32.0); Mean Corpuscular Volume 90.9 fL (81-99); Monocyte# 0.49 X10^3/uL; Monocyte% 4.8 % (0-10); NRBC Flagged by Analyzer 0 % (0-5); Neutrophil # 8.04 X10^3/uL (2.7-7.7); Neutrophil % 78.5 % (47-70); Platelet Count 386 K/mm3 (150-450); RBC Distribution Width CV 13.2 % (11.6-14.6); RBC Distribution Width SD 43.5 fl (35.1-43.9); Red Blood Count 3.96 M/mm3 (4.2-5.4); White Blood Count 10.2 K/mm3 (4.4-11.0)
[2020-10-10 10:44] LABS: Glucose Challenge Gest 1H 50g 131 mg/dL (70-140)
--- NOTE | 2020-10-10 13:34 | US_ITS ---
STUDY: SECOND AND THIRD TRIMESTER OBSTETRICAL ULTRASOUND - LIMITED REASON FOR EXAM: Female, 25 years old WELL BEING. PT HAS FALLEN TWICE ON THE ICE SINCE THURSDAY 10/05. PT EXPERIENCED SPOTTING ON THURSDAY THAT HAS SINCE SUBSIDED. LMP: 03/24/2020. PRIOR ULTRASOUND: Comparison is made with prior study dated 08/08/2020. TECHNIQUE: Transabdominal TECHNICAL QUALITY: Adequate. FINDINGS: There is a single intrauterine fetus. The fetus is in a cephalic presentation. There is demonstrated cardiac activity with a heart rate of 140 bpm. There is a normal amniotic fluid volume. The largest amniotic fluid pocket measures 4.2 cm. The amniotic fluid index (CLAUS) is 14.5 cm. The placenta is fundal and posterior in location. There are Grade 1 placental changes. The cervix measures 3.7 cm in length. BIOMETRY: Age by LMP: 28 weeks, 4 days. BRANDYN by LMP: 12/29/2020. age by prior US: 28 weeks, 2 days. BRANDYN by prior US: 12/31/2020. US/OB Limited (No Biometrics) IMPRESSION: Single live intrauterine gestation with a mean gestational age of 28 weeks and 2 days. Electronically Signed: Yassine Mendes MD at 14:31 EST , Service support ,
== END ==
PROVIDERS: Obstetrics & Gynecology; PCP Internal Medicine; Referring Provider Obstetrics & Gynecology; Visit Provider Obstetrics & Gynecology
DX: O09.00 Supervision of pregnancy with history of infertility, unspecified trimester (principal); N89.8 Other specified noninflammatory disorders of vagina; O26.899 Other specified pregnancy related conditions, unspecified trimester; Z3A.00 Weeks of gestation of pregnancy not specified
CPT/HCPCS: 36415; 76815; 82950; 85025

== ENCOUNTER → 2020-11-07 08:13 | Outpatient (CLI) | payer MEDICAID, SELFPAY ==
[2020-10-26 09:18] VITALS: BMI 34.8
[2020-11-01 13:26] VITALS: BMI 34.7
--- NOTE | 2020-11-07 08:14 | US_ITS ---
STUDY: SECOND AND THIRD TRIMESTER OBSTETRICAL ULTRASOUND REASON FOR EXAM: Female, 25 years old Growth at 32 weeks LMP: 03/24/2020. TECHNIQUE: Transabdominal TECHNICAL QUALITY: Adequate. PRIOR ULTRASOUND: Comparison is made with prior examination dated 10/10/2020. FINDINGS: There is a single intrauterine fetus. The fetus is in a cephalic presentation. There is demonstrated cardiac activity with a heart rate of 138 bpm. There is a normal amniotic fluid volume. The largest amniotic fluid pocket measures 5.6 cm. The amniotic fluid index (CLAUS) is 16.6 cm. The placenta is fundal and posterior in location. There are Grade 1 placental changes. The cervix measures 3.5 cm in length. The adnexal regions are not visualized. BIOMETRY: BPD: 8.4 cm: 33 weeks, 5 days HC: 29.7 cm: 32 weeks, 5 days AC: 28.7 cm: 32 weeks, 4 days FL: 5.8 cm: 30 weeks, 2 days CI: 84% FL/BPD: 69% FL/HC: FL/AC: 20% HC/AC: 1.03 age by current US: 32 weeks, 0 days. BRANDYN by current US: 01/02/2021. Estimated weight: 1934 grams, +/- 290 grams, 31 %. age by prior US: 32 weeks, 2 days. BRANDYN by prior US: 12/31/2020. Age by LMP: 32 weeks, 4 days. BRANDYN by LMP: 12/29/2020. US/OB Limited With Biometrics IMPRESSION: Single live intrauterine gestation with a mean gestational age of 32 weeks and 2 days. The measurements obtained today fall within the normal expected range. Electronically Signed: Yassine Mendes MD at 11:15 EDT , Service support ,
== END ==
PROVIDERS: PCP Internal Medicine; Referring Provider Obstetrics & Gynecology; Visit Provider Obstetrics & Gynecology
DX: O09.00 Supervision of pregnancy with history of infertility, unspecified trimester (principal); O10.919 Unspecified pre-existing hypertension complicating pregnancy, unspecified trimester
CPT/HCPCS: 76816

== ENCOUNTER → 2020-11-15 12:17 | Outpatient (CLI) | payer MEDICAID, SELFPAY ==
[2020-10-26 09:18] VITALS: BMI 34.8
[2020-11-15 11:28] VITALS: BMI 35.1
--- NOTE | 2020-11-15 12:21 | US_ITS ---
STUDY: SECOND AND THIRD TRIMESTER OBSTETRICAL ULTRASOUND - LIMITED REASON FOR EXAM: Female, 25 years old CLAUS at 34 weeks LMP: 03/24/2020. PRIOR ULTRASOUND: Comparison is made with prior study dated 11/07/2020. TECHNIQUE: Transabdominal TECHNICAL QUALITY: Adequate. FINDINGS: There is a single intrauterine fetus. The fetus is in a cephalic presentation. There is demonstrated cardiac activity with a heart rate of 140 bpm. There is a normal amniotic fluid volume. The largest amniotic fluid pocket measures 6.4 cm. The amniotic fluid index (CLAUS) is 14.2 cm. The placenta is fundal in location. There are Grade 1 placental changes. Age by LMP: 33 weeks, 5 days. BRANDYN by LMP: 12/29/2020. US/OB Limited (No Biometrics) IMPRESSION: Normal amniotic fluid. Electronically Signed: Yassine Mendes MD at 15:56 EDT , Service support ,
== END ==
PROVIDERS: PCP Internal Medicine; Referring Provider Obstetrics & Gynecology; Visit Provider Obstetrics & Gynecology
DX: Z34.93 Encounter for supervision of normal pregnancy, unspecified, third trimester (principal)
CPT/HCPCS: 76815

== ENCOUNTER → 2020-11-21 11:51 | Outpatient (CLI) | payer MEDICAID, SELFPAY ==
[2020-10-26 09:18] VITALS: BMI 34.8
[2020-11-21 11:07] VITALS: BMI 35.4
--- NOTE | 2020-11-21 12:30 | US_ITS ---
STUDY: SECOND AND THIRD TRIMESTER OBSTETRICAL ULTRASOUND - LIMITED REASON FOR EXAM: Female, 25 years old CLAUS at 33 weeks LMP: 03/24/2020. PRIOR ULTRASOUND: Comparison is made with prior study 11/15/2020. TECHNIQUE: Transabdominal TECHNICAL QUALITY: Adequate. FINDINGS: There is a single intrauterine fetus. The fetus is in a cephalic presentation. There is demonstrated cardiac activity with a heart rate of 124 bpm. There is a normal amniotic fluid volume. The largest amniotic fluid pocket measures 4.7 cm. The amniotic fluid index (CLAUS) is 11.3 cm. The placenta is fundal in location. There are Grade 1 placental changes. The cervix was not visualized at this time. BIOMETRY: Age by LMP: 34 weeks, 4 days. BRANDYN by LMP: 12/29/2020. US/OB Limited (No Biometrics) IMPRESSION: Normal amniotic fluid. Electronically Signed: Yassine Mendes MD at 15:31 EDT , Service support ,
== END ==
PROVIDERS: PCP Internal Medicine; Referring Provider Obstetrics & Gynecology; Visit Provider Obstetrics & Gynecology
DX: Z34.83 Encounter for supervision of other normal pregnancy, third trimester (principal)
CPT/HCPCS: 76815

== ENCOUNTER → 2020-11-29 16:01 | Outpatient (CLI) | payer MEDICAID, SELFPAY ==
[2020-10-26 09:18] VITALS: BMI 34.8
[2020-11-29 13:29] VITALS: BMI 35.2
--- NOTE | 2020-11-29 16:04 | US_ITS ---
STUDY: SECOND AND THIRD TRIMESTER OBSTETRICAL ULTRASOUND REASON FOR EXAM: Female, 25 years old Claus at 35 weeks TECHNIQUE: Transabdominal PRIOR ULTRASOUND: 11/21/2020. FINDINGS: There is a single intrauterine fetus. The fetus is in a cephalic presentation. There is demonstrated cardiac activity with a heart rate of 130 bpm. There is a normal amniotic fluid volume. The largest amniotic fluid pocket measures 6.3 cm. The amniotic fluid index (CLAUS) is 11.7 cm. The placenta is fundal/posterior. There are Grade 1 placental changes. The cervix is not visualized. The bilateral adnexal regions are not visualized. US/OB Limited (No Biometrics) IMPRESSION: Normal CLAUS. Electronically Signed: Miah Fu MD at 16:59 EDT Tel , Service support ,
== END ==
PROVIDERS: PCP Internal Medicine; Referring Provider Obstetrics & Gynecology; Visit Provider Obstetrics & Gynecology
DX: O10.913 Unspecified pre-existing hypertension complicating pregnancy, third trimester (principal); Z3A.35 35 weeks gestation of pregnancy
CPT/HCPCS: 76815

== ENCOUNTER → 2020-12-07 07:49 | Outpatient (CLI) | payer MEDICAID, SELFPAY ==
[2020-10-26 09:18] VITALS: BMI 34.8
[2020-11-29 13:29] VITALS: BMI 35.2
--- NOTE | 2020-12-07 07:52 | US_ITS ---
STUDY: SECOND AND THIRD TRIMESTER OBSTETRICAL ULTRASOUND REASON FOR EXAM: Female, 25 years old GROWTH LMP: 03/24/2020. TECHNIQUE: Transabdominal TECHNICAL QUALITY: Adequate. PRIOR ULTRASOUND: Comparison is made with prior examination dated 11/29/2020. FINDINGS: There is a single intrauterine fetus. The fetus is in a cephalic presentation. There is demonstrated cardiac activity with a heart rate of 119 bpm. There is a normal amniotic fluid volume. The largest amniotic fluid pocket measures 5.7 cm. The amniotic fluid index (CLAUS) is 15.2 cm. The placenta is fundal in location. There are Grade 1 placental changes. The adnexal regions are not visualized. BIOMETRY: BPD: 9.26 cm: 37 weeks, 4 days HC: 33.27 cm: 37 weeks, 6 days AC: 31.92 cm: 35 weeks, 5 days FL: 6.55 cm: 33 weeks, 5 days CI: 83% FL/BPD: 71% FL/HC: FL/AC: 21% HC/AC: 1.04 age by current US: 36 weeks, 2 days. BRANDYN by current US: 01/02/2021. Estimated weight: 2746 grams, +/- 412 grams, 26 %. age by prior US: 36 weeks, 6 days. BRANDYN by prior US: 12/29/2020. Age by LMP: 36 weeks, 6 days. BRANDYN by LMP: 12/29/2020. US/OB Limited With Biometrics IMPRESSION: Single live uterine gestation with a mean gestational age of 36 weeks and 6 days. The measurements obtained today while within the normal expected range. Electronically Signed: Yassine Mendes MD at 12:31 EDT , Service support ,
== END ==
PROVIDERS: Physician Assistant Surgical; PCP Internal Medicine; Referring Provider Obstetrics & Gynecology; Visit Provider Obstetrics & Gynecology
DX: O09.93 Supervision of high risk pregnancy, unspecified, third trimester (principal); O98.513 Other viral diseases complicating pregnancy, third trimester; U07.1 COVID-19; Z3A.36 36 weeks gestation of pregnancy
CPT/HCPCS: 76815; 76816; 87081; 87635; U0002

== ENCOUNTER 2020-12-10 17:00 | Outpatient (CLI) | payer MEDICAID, SELFPAY ==
[2020-12-07 17:23] VITALS: BMI 35.2
[2020-12-10] VITALS (32 sets, daily range): BP systolic 129–134; BP diastolic 62–82; PULSE 84–167; TEMP 37.1–37.6; O2SAT 81–100; BMI 35.3
[2020-12-10] MEDS: Lactated Ringers 1,000 ML 999 ML IV ×2 (17:55→18:56)
[2020-12-10 18:20] LABS: Hematocrit 38.5 % (37-47); Hemoglobin 13.2 g/dL (12.0-15.0); Mean Corp Hgb Conc 34.3 g/dL (32-36); Mean Corpuscular Hgb 31.6 pg (27.0-32.0); Mean Corpuscular Volume 92.1 fL (81-99); Mean Platelet Vol. 11.3 fl (6.2-12.0); Platelet Count 218 K/mm3 (150-450); RBC Distribution Width CV 13.7 % (11.6-14.6); RBC Distribution Width SD 46.1 fl (35.1-43.9); Red Blood Count 4.18 M/mm3 (4.2-5.4); White Blood Count 8.1 K/mm3 (4.4-11.0)
[2020-12-10] MEDS: Acetaminophen 500 MG Tablet 1000 MG PO ×2 (18:26→23:57)
[2020-12-10 18:35] LABS: ALB/GLOB Ratio 0.6 RATIO (0.9-2.4); AST(SGOT) 51 U/L (15-37); Alanine Aminotransfer ALT/SGPT 108 U/L (13-56); Albumin, Serum 2.5 g/dL (3.2-5.0); Alkaline Phosphatase 174 U/L (45-117); Anion Gap 9 (5-15); BUN 12 mg/dL (7-18); BUN/Creat Ratio 12.9 RATIO (10-20); Calcium,Total 8.5 mg/dL (8.5-10.1); Chloride 106 mmol/L (98-107); Creatinine, Serum 0.93 mg/dL (0.55-1.02); EST Glomerular Filtration Rate 79 mL/min (>60); Est Glom Filt Rate - Afr Amer 95 mL/min (>60); Estimated Creatinine Clearance 87.32 ml/min; Globulin 4.3 g/dL (2.2-4.2); Glucose 70 mg/dL (74-106); Potassium 4.1 mmol/L (3.5-5.1); Protein, Total 6.8 g/dL (6.4-8.2); Sodium Level 136 mmol/L (136-145)
[2020-12-10 20:46] LABS: Protein, Urine (Random) 9.8 mg/dL (<11.9); Protein:Creat Ratio 126 mg/g CRE (0-200)
[2020-12-10] MEDS: Ondansetron 4 MG/2 ML Vial IV (21:23)
[2020-12-10] MEDS: Enoxaparin 40 MG/0.4 ML Syringe SC (21:23)
[2020-12-10] MEDS: Lactated Ringers 1,000 ML 100 ML IV (21:23)
--- NOTE | 2020-12-10 21:25 | RAD_ITS ---
STUDY: X-RAY CHEST REASON FOR EXAM: Female, 25 years old. bilat diminished lower lobes -- covid + TECHNIQUE: Single AP portable view of the chest. COMPARISON: None. FINDINGS: The lungs are clear and expanded. There is no demonstrated pleural abnormality. Normal size heart. Normal mediastinum and emily. Normal visualized pulmonary arteries. Normal visualized aortic arch and descending thoracic aorta. Normal visualized thoracic spine. Normal visualized ribs, clavicles, and shoulders. There is no demonstrated abnormality of the visualized soft tissue structures of the upper abdomen. RAD/Chest 1 View (Portable) IMPRESSION: Normal x-ray examination of the chest. Electronically Signed: Scot Fuentes DO at 23:01 EDT Tel , Service support ,
[2020-12-10] MEDS: proCHLORPERazine 10 MG/2 ML Vial IV (22:56)
[2020-12-11] VITALS (9 sets, daily range): BP systolic 130–138; BP diastolic 64–83; PULSE 31–103; TEMP 36.6–37.7; O2SAT 81–97
[2020-12-11 00:13] LABS: Hematocrit 33.4 % (37-47); Hemoglobin 11.2 g/dL (12.0-15.0); Mean Corp Hgb Conc 33.5 g/dL (32-36); Mean Corpuscular Hgb 30.9 pg (27.0-32.0); Mean Corpuscular Volume 92.3 fL (81-99); Mean Platelet Vol. 10.8 fl (6.2-12.0); Platelet Count 179 K/mm3 (150-450); RBC Distribution Width CV 13.8 % (11.6-14.6); RBC Distribution Width SD 46.5 fl (35.1-43.9); Red Blood Count 3.62 M/mm3 (4.2-5.4); White Blood Count 6.8 K/mm3 (4.4-11.0)
[2020-12-11 03:27] LABS: ALB/GLOB Ratio 0.6 RATIO (0.9-2.4); AST(SGOT) 39 U/L (15-37); Alanine Aminotransfer ALT/SGPT 80 U/L (13-56); Alkaline Phosphatase 141 U/L (45-117); Anion Gap 9 (5-15); BUN 10 mg/dL (7-18); BUN/Creat Ratio 11.4 RATIO (10-20); Calcium,Total 7.8 mg/dL (8.5-10.1); Chloride 110 mmol/L (98-107); Creatinine, Serum 0.88 mg/dL (0.55-1.02); EST Glomerular Filtration Rate 84 mL/min (>60); Est Glom Filt Rate - Afr Amer 102 mL/min (>60); Estimated Creatinine Clearance 92.28 ml/min; Globulin 3.4 g/dL (2.2-4.2); Glucose 100 mg/dL (74-106); Potassium 3.5 mmol/L (3.5-5.1); Protein, Total 5.4 g/dL (6.4-8.2); Sodium Level 139 mmol/L (136-145)
[2020-12-11] MEDS: Acetaminophen 500 MG Tablet 1000 MG PO (06:17)
--- NOTE | 2020-12-11 06:47 | OB.TRI.HP_ITS ---
- Problem List (1) 35 weeks gestation of Status: Acute Comment: COVID test ordered 11/28/20 (sched 12/07 at 2:10pm) (2) Acute upper respiratory infection Status: Acute (3) Anxiety and depression Status: Acute Comment: stable. Increased fluoxetine to 80mg daily. Referred to IOP. encouraged counseling 10/10 stable (4) COVID-19 affecting , antepartum Status: Acute (5) Contact with or suspected exposure to other viral communicable disease Status: Acute (6) History of tetanus, diphtheria, and acellular pertussis booster vaccination (Tdap) Status: Acute Comment: 10/10/20 (7) Obesity affecting Status: Acute Qualifiers: Trimester: third trimester Qualified Code(s): O99.213 - Obesity complicating , third trimester Comment: nl 1 tm glucola given at [facility] (8) Status: Acute Qualifiers: Weeks of gestation: 34 weeks Qualified Code(s): Z3A.34 - 34 weeks gestation of Comment: genetic- low risk and carrier- neg normal anatomy (9) Supervision of with history of infertility Status: Acute Comment: PRR BRANDYN 12/22/2020 panfilo Deep pedraza PC: Salima Spouse: Adrian (10) Bipolar disorder Status: Chronic Qualifiers: Active/Remission status: in full remission Most recent bipolar episode type: most recent episode unspecified type Qualified Code(s): F31.70 - Bipolar disorder, currently in remission, most recent episode unspecified Comment: on prozac, (11) Chronic hypertension affecting Status: Chronic Comment: Previously on labetalol. Not on meds. Growths q4 at 32w. Delivery 38/0-39/6. NL CLAUS 11/21 History of Present Illness Date of Service: 12/11/20 Was patient seen by the physician?: Yes Reason For Visit: DECREASED MOVEMENT Date of Service: 12/11/20 History of Present Illness: 25-year-old G2, P1 at 37 weeks with COVID-19 infection on day 5. Significant improvement in symptoms overnight nausea controlled with no emesis improving p.o. intake. Afebrile and less malaise and fatigue. Patient feeling movement now denies any vaginal bleeding loss of fluid or regular contractions. Patient denies chest pressure or pain or shortness of breath. Allergies prednisone Allergy (Mild, Verified 12/11/20 05:42) Other rash; nausea - Pertinent Past Medical History Medical History: Past Medical History (Last Reviewed 12/07/20 @ 17:25 by Richa Cuevas) Anxiety Bipolar disorder Depression Surgical History: Past Surgical History (Last Reviewed 12/07/20 @ 17:25 by Richa Cuevas) History of hysterosalpingogram Laboratory Studies: Laboratory Tests 12/11/20 12/11/20 12/10/20 Range/Units 00:00 00:00 20:15 WBC 6.8 (4.4-11.0) K/mm3 RBC 3.62 L (4.2-5.4) M/mm3 Hgb 11.2 L (12.0-15.0) g/dL Hct 33.4 L (37-47) % MCV 92.3 (81-99) fL MCH 30.9 (27.0-32.0) pg MCHC 33.5 (32-36) g/dL RDW Std Deviation 46.5 H (35.1-43.9) fl RDW Coeff of Ibeth 13.8 (11.6-14.6) % Plt Count 179 (150-450) K/mm3 MPV 10.8 (6.2-12.0) fl Sodium 139 (136-145) mmol/L Potassium 3.5 (3.5-5.1) mmol/L Chloride 110 H (98-107) mmol/L Carbon Dioxide 20.0 L (21.0-32.0) mmol/L Anion Gap 9 (5-15) BUN 10 (7-18) mg/dL Creatinine 0.88 (0.55-1.02) mg/dL Estim Creat Clear Calc 92.28 ml/min Est GFR (MDRD) Af Amer 102 (>60) mL/min Est GFR (MDRD) Non-Af 84 (>60) mL/min BUN/Creatinine Ratio 11.4 (10-20) RATIO Glucose 100 (74-106) mg/dL Calcium 7.8 L (8.5-10.1) mg/dL Total Bilirubin 0.40 (0.20-1.00) mg/dL AST 39 H (15-37) U/L ALT 80 H (13-56) U/L Alkaline Phosphatase 141 H (45-117) U/L Troponin I (<0.045) ng/mL Total Protein 5.4 L (6.4-8.2) g/dL Albumin 2.0 L (3.2-5.0) g/dL Globulin 3.4 (2.2-4.2) g/dL Albumin/Globulin Ratio 0.6 L (0.9-2.4) RATIO U Random Total Protein 9.8 (<11.9) mg/dL Urine Creatinine 77.90 (NO RANGE EST.) mg/dL Protein/Creatinin Ratio 126 (0-200) mg/g CRE 12/10/20 12/10/20 12/10/20 Range/Units 17:55 17:55 17:55 WBC 8.1 (4.4-11.0) K/mm3 RBC 4.18 L (4.2-5.4) M/mm3 Hgb 13.2 (12.0-15.0) g/dL Hct 38.5 (37-47) % MCV 92.1 (81-99) fL MCH 31.6 (27.0-32.0) pg MCHC 34.3 (32-36) g/dL RDW Std Deviation 46.1 H (35.1-43.9) fl RDW Coeff of Ibeth 13.7 (11.6-14.6) % Plt Count 218 (150-450) K/mm3 MPV 11.3 (6.2-12.0) fl Sodium 136 (136-145) mmol/L Potassium 4.1 (3.5-5.1) mmol/L Chloride 106 (98-107) mmol/L Carbon Dioxide 21.0 (21.0-32.0) mmol/L Anion Gap 9 (5-15) BUN 12 (7-18) mg/dL Creatinine 0.93 (0.55-1.02) mg/dL Estim Creat Clear Calc 87.32 ml/min Est GFR (MDRD) Af Amer 95 (>60) mL/min Est GFR (MDRD) Non-Af 79 (>60) mL/min BUN/Creatinine Ratio 12.9 (10-20) RATIO Glucose 70 L (74-106) mg/dL Calcium 8.5 (8.5-10.1) mg/dL Total Bilirubin 0.50 (0.20-1.00) mg/dL AST 51 H (15-37) U/L ALT 108 H (13-56) U/L Alkaline Phosphatase 174 H (45-117) U/L Troponin I < 0.015 (<0.045) ng/mL Total Protein 6.8 (6.4-8.2) g/dL Albumin 2.5 L (3.2-5.0) g/dL Globulin 4.3 H (2.2-4.2) g/dL Albumin/Globulin Ratio 0.6 L (0.9-2.4) RATIO U Random Total Protein (<11.9) mg/dL Urine Creatinine (NO RANGE EST.) mg/dL Protein/Creatinin Ratio (0-200) mg/g CRE Review of Systems Constitutional: Denies: Fever - Highest temp 99.9 controlled with scheduled Tyl enol Eyes: Denies: Blurred vision Cardiovascular: Denies: Chest Pain, Chest Pressure Respiratory: Denies: Cough, Pleuritic Pain, Shortness of Breath Gastrointestinal: Reports: Nausea. Denies: Abdominal Pain, Vomiting Genitourinary: Denies: Dysuria Physical Exam Vitals: Vital Signs Temp Pulse BP Pulse Ox 99.9 F H 96 138/83 H 97 12/11/20 06:21 12/11/20 06:21 12/11/20 06:20 12/11/20 06:21 General: Alert, Oriented x3, Cooperative HEENT: Atraumatic, Normocephalic Cardiovascular: Regular rate, Regular Rhythm Lungs: Clear to auscultation, Normal air movement Abdomen: Soft, Non Tender, Non-Distended NST - FHR Rate Baby A Baseline: 140-150 Variability:: Moderate Accelerations:: 15 x 15 Decelerations:: None NST Reactive:: Yes FHR Category:: Category I Uterine Activity:: no regular Impression/Plan 25-year-old G2, P1 at 37 weeks managed short term observation overnight for COVID-19 infection BPP this morning 8 out of 8. Reassuring status overall. Significant improvement in patient status with IV fluids and scheduled Tylenol and antiemetics. Liver enzyme elevation resolved or stabilized. No signs of preeclampsia or severe Covid infection. Will discharge home for outpatient management and plan on induction of labor Thursday for chronic hypertension Multi Select Codes - Visit Charges Observation E&M Codin Observation care discharge
--- NOTE | 2020-12-11 07:10 | US_ITS ---
STUDY: OBSTETRICAL ULTRASOUND - BIOPHYSICAL PROFILE REASON FOR EXAM: Female, 25 years old decreased movement -- patient covid positive LMP: 03/24/2020. PRIOR ULTRASOUND: Comparison is made with prior study dated 12/07/2020. TECHNIQUE: Transabdominal TECHNICAL QUALITY: Adequate. FINDINGS: There is a single intrauterine fetus. The fetus is in a cephalic presentation. There is demonstrated cardiac activity with a heart rate of 124 bpm. There is increased amniotic fluid consistent with polyhydramnios. The largest amniotic fluid pocket measures 6.8 cm. The amniotic fluid index (CLAUS) is 22.5 cm. The placenta is fundal and posterior in location. There are Grade 1 placental changes. Age by LMP: 37 weeks, 3 days. BRANDYN by LMP: 12/29/2020. BIOPHYSICAL PROFILE: Breathing Movements (FBM): 2 Gross Body Movements (GBM): 2 Tone (FT): 2 Amniotic Fluid Volume (AFV): 2 TOTAL SCORE: 8 / 8 US/Biophysical Prof W/O Non Stres IMPRESSION: Normal biophysical profile of 03/31. Electronically Signed: Yassine Mendes MD at 12:32 EDT , Service support ,
[2020-12-11] MEDS: Lactated Ringers 1,000 ML 100 ML IV (07:26)
[2020-12-11 07:46] LABS: Absolute Lymphocyte Count 0.61 X10^3/uL (0.83-4.51); Absolute Neutrophil Count 4.9 X10^3/uL (2.0-7.7); Basophil# 0.04 X10^3/uL; Basophil% 0.7 % (0-1); Hematocrit 32.3 % (37-47); Hemoglobin 11.1 g/dL (12.0-15.0); Lymphocyte # 0.61 X10^3/ul (0.83-4.51); Lymphocyte % 10.4 % (19-41); Mean Corp Hgb Conc 34.4 g/dL (32-36); Mean Corpuscular Hgb 31.5 pg (27.0-32.0); Mean Corpuscular Volume 91.8 fL (81-99); Mean Platelet Vol. 10.7 fl (6.2-12.0); Monocyte# 0.22 X10^3/uL; Monocyte% 3.7 % (0-10); NRBC Flagged by Analyzer 0 % (0-5); Neutrophil # 4.88 X10^3/uL (2.7-7.7); Neutrophil % 82.8 % (47-70); Platelet Count 157 K/mm3 (150-450); RBC Distribution Width CV 13.9 % (11.6-14.6); RBC Distribution Width SD 46.6 fl (35.1-43.9); Red Blood Count 3.52 M/mm3 (4.2-5.4); White Blood Count 5.9 K/mm3 (4.4-11.0)
[2020-12-11 08:16] LABS: ALB/GLOB Ratio 0.6 RATIO (0.9-2.4); AST(SGOT) 41 U/L (15-37); Alanine Aminotransfer ALT/SGPT 75 U/L (13-56); Alkaline Phosphatase 148 U/L (45-117); Anion Gap 8 (5-15); BUN 9 mg/dL (7-18); BUN/Creat Ratio 10.7 RATIO (10-20); Calcium,Total 7.8 mg/dL (8.5-10.1); Chloride 110 mmol/L (98-107); Creatinine, Serum 0.84 mg/dL (0.55-1.02); EST Glomerular Filtration Rate 88 mL/min (>60); Est Glom Filt Rate - Afr Amer 107 mL/min (>60); Estimated Creatinine Clearance 96.68 ml/min; Globulin 3.5 g/dL (2.2-4.2); Glucose 92 mg/dL (74-106); Potassium 3.6 mmol/L (3.5-5.1); Protein, Total 5.5 g/dL (6.4-8.2); Sodium Level 137 mmol/L (136-145)
--- NOTE | 2020-12-11 09:14 | OB.TRI.NOTE ---
- Problem List (1) 35 weeks gestation of Status: Acute Comment: COVID test ordered 11/28/20 (sched 12/07 at 2:10pm) (2) Acute upper respiratory infection Status: Acute (3) Anxiety and depression Status: Acute Comment: stable. Increased fluoxetine to 80mg daily. Referred to IOP. encouraged counseling 10/10 stable (4) COVID-19 affecting , antepartum Status: Acute (5) Contact with or suspected exposure to other viral communicable disease Status: Acute (6) History of tetanus, diphtheria, and acellular pertussis booster vaccination (Tdap) Status: Acute Comment: 10/10/20 (7) Obesity affecting Status: Acute Qualifiers: Trimester: third trimester Qualified Code(s): O99.213 - Obesity complicating , third trimester Comment: nl [address] [facility] (8) Status: Acute Qualifiers: Weeks of gestation: 34 weeks Qualified Code(s): Z3A.34 - 34 weeks gestation of Comment: genetic- low risk and carrier- neg normal anatomy (9) Supervision of with history of infertility Status: Acute Comment: PRR BRANDYN 12/22/2020 panfilo Deep pedraza PC: Salima Spouse: Adrian (10) Bipolar disorder Status: Chronic Qualifiers: Active/Remission status: in full remission Most recent bipolar episode type: most recent episode unspecified type Qualified Code(s): F31.70 - Bipolar disorder, currently in remission, most recent episode unspecified Comment: on prozac, (11) Chronic hypertension affecting Status: Chronic Comment: Previously on labetalol. Not on meds. Growths q4 at 32w. Delivery 38/0-39/6. NL CLAUS 11/21 History of Present Illness Date of Service: 12/10/20 Was patient seen by the physician?: Yes Reason For Visit: DECREASED MOVEMENT Final BRANDYN: 12/22/20 Gestational age: 38 Weeks and 5 Days History of Present Illness: 25-year-old G2, P1 at 37 weeks presents on day 4 of confirmed COVID-19 infection with decreased movement. She has had intermittent fevers up to 101 and has some chest pressure and cough. She feels achy and malaise, fatigue. She has also had nausea and vomiting with limited p.o. intake. She denies significant shortness of breath at this time. Allergies prednisone Allergy (Mild, Verified 12/11/20 05:42) Other rash; nausea - Pertinent Past Medical History Medical History: Past Medical History (Last Reviewed 12/07/20 @ 17:25 by Richa Cuevas) Anxiety Bipolar disorder Depression Surgical History: Past Surgical History (Last Reviewed 12/07/20 @ 17:25 by Richa Cuevas) History of hysterosalpingogram Laboratory Studies: Laboratory Tests 12/11/20 12/11/20 12/11/20 Range/Units 07:40 07:40 00:00 WBC 5.9 (4.4-11.0) K/mm3 RBC 3.52 L (4.2-5.4) M/mm3 Hgb 11.1 L (12.0-15.0) g/dL Hct 32.3 L (37-47) % MCV 91.8 (81-99) fL MCH 31.5 (27.0-32.0) pg MCHC 34.4 (32-36) g/dL RDW Std Deviation 46.6 H (35.1-43.9) fl RDW Coeff of Ibeth 13.9 (11.6-14.6) % Plt Count 157 (150-450) K/mm3 MPV 10.7 (6.2-12.0) fl Immature Gran % (Auto) 2.400 H (0.0-0.9) % Neut % (Auto) 82.8 H (47-70) % Lymph % (Auto) 10.4 L (19-41) % [place] % (Auto) 3.7 (0-10) % Eos % (Auto) 0.0 (0-5) % Baso % (Auto) 0.7 (0-1) % Absolute Neuts (auto) 4.9 (2.0-7.7) X10^3/uL Absolute Lymphs (auto) 0.61 L (0.83-4.51) X10^3/uL Nucleated RBC % 0 (0-5) % Sodium 137 139 (136-145) mmol/L Potassium 3.6 3.5 (3.5-5.1) mmol/L Chloride 110 H 110 H (98-107) mmol/L Carbon Dioxide 19.0 L 20.0 L (21.0-32.0) mmol/L Anion Gap 8 9 (5-15) BUN 9 10 (7-18) mg/dL Creatinine 0.84 0.88 (0.55-1.02) mg/dL Estim Creat Clear Calc 96.68 92.28 ml/min Est GFR (MDRD) Af Amer 107 102 (>60) mL/min Est GFR (MDRD) Non-Af 88 84 (>60) mL/min BUN/Creatinine Ratio 10.7 11.4 (10-20) RATIO Glucose 92 100 (74-106) mg/dL Calcium 7.8 L 7.8 L (8.5-10.1) mg/dL Total Bilirubin 0.40 0.40 (0.20-1.00) mg/dL AST 41 H 39 H (15-37) U/L ALT 75 H 80 H (13-56) U/L Alkaline Phosphatase 148 H 141 H (45-117) U/L Troponin I (<0.045) ng/mL Total Protein 5.5 L 5.4 L (6.4-8.2) g/dL Albumin 2.0 L 2.0 L (3.2-5.0) g/dL Globulin 3.5 3.4 (2.2-4.2) g/dL Albumin/Globulin Ratio 0.6 L 0.6 L (0.9-2.4) RATIO U Random Total Protein (<11.9) mg/dL Urine Creatinine (NO RANGE EST.) mg/dL Protein/Creatinin Ratio (0-200) mg/g CRE 12/11/20 12/10/20 12/10/20 Range/Units 00:00 20:15 17:55 WBC 6.8 (4.4-11.0) K/mm3 RBC 3.62 L (4.2-5.4) M/mm3 Hgb 11.2 L (12.0-15.0) g/dL Hct 33.4 L (37-47) % MCV 92.3 (81-99) fL MCH 30.9 (27.0-32.0) pg MCHC 33.5 (32-36) g/dL RDW Std Deviation 46.5 H (35.1-43.9) fl RDW Coeff of Ibeth 13.8 (11.6-14.6) % Plt Count 179 (150-450) K/mm3 MPV 10.8 (6.2-12.0) fl Immature Gran % (Auto) (0.0-0.9) % Neut % (Auto) (47-70) % Lymph % (Auto) (19-41) % [place] % (Auto) (0-10) % Eos % (Auto) (0-5) % Baso % (Auto) (0-1) % Absolute Neuts (auto) (2.0-7.7) X10^3/uL Absolute Lymphs (auto) (0.83-4.51) X10^3/uL Nucleated RBC % (0-5) % Sodium (136-145) mmol/L Potassium (3.5-5.1) mmol/L Chloride (98-107) mmol/L Carbon Dioxide (21.0-32.0) mmol/L Anion Gap (5-15) BUN (7-18) mg/dL Creatinine (0.55-1.02) mg/dL Estim Creat Clear Calc ml/min Est GFR (MDRD) Af Amer (>60) mL/min Est GFR (MDRD) Non-Af (>60) mL/min BUN/Creatinine Ratio (10-20) RATIO Glucose (74-106) mg/dL Calcium (8.5-10.1) mg/dL Total Bilirubin (0.20-1.00) mg/dL AST (15-37) U/L ALT (13-56) U/L Alkaline Phosphatase (45-117) U/L Troponin I < 0.015 (<0.045) ng/mL Total Protein (6.4-8.2) g/dL Albumin (3.2-5.0) g/dL Globulin (2.2-4.2) g/dL Albumin/Globulin Ratio (0.9-2.4) RATIO U Random Total Protein 9.8 (<11.9) mg/dL Urine Creatinine 77.90 (NO RANGE EST.) mg/dL Protein/Creatinin Ratio 126 (0-200) mg/g CRE 12/10/20 12/10/20 Range/Units 17:55 17:55 WBC 8.1 (4.4-11.0) K/mm3 RBC 4.18 L (4.2-5.4) M/mm3 Hgb 13.2 (12.0-15.0) g/dL Hct 38.5 (37-47) % MCV 92.1 (81-99) fL MCH 31.6 (27.0-32.0) pg MCHC 34.3 (32-36) g/dL RDW Std Deviation 46.1 H (35.1-43.9) fl RDW Coeff of Ibeth 13.7 (11.6-14.6) % Plt Count 218 (150-450) K/mm3 MPV 11.3 (6.2-12.0) fl Immature Gran % (Auto) (0.0-0.9) % Neut % (Auto) (47-70) % Lymph % (Auto) (19-41) % [place] % (Auto) (0-10) % Eos % (Auto) (0-5) % Baso % (Auto) (0-1) % Absolute Neuts (auto) (2.0-7.7) X10^3/uL Absolute Lymphs (auto) (0.83-4.51) X10^3/uL Nucleated RBC % (0-5) % Sodium 136 (136-145) mmol/L Potassium 4.1 (3.5-5.1) mmol/L Chloride 106 (98-107) mmol/L Carbon Dioxide 21.0 (21.0-32.0) mmol/L Anion Gap 9 (5-15) BUN 12 (7-18) mg/dL Creatinine 0.93 (0.55-1.02) mg/dL Estim Creat Clear Calc 87.32 ml/min Est GFR (MDRD) Af Amer 95 (>60) mL/min Est GFR (MDRD) Non-Af 79 (>60) mL/min BUN/Creatinine Ratio 12.9 (10-20) RATIO Glucose 70 L (74-106) mg/dL Calcium 8.5 (8.5-10.1) mg/dL Total Bilirubin 0.50 (0.20-1.00) mg/dL AST 51 H (15-37) U/L ALT 108 H (13-56) U/L Alkaline Phosphatase 174 H (45-117) U/L Troponin I (<0.045) ng/mL Total Protein 6.8 (6.4-8.2) g/dL Albumin 2.5 L (3.2-5.0) g/dL Globulin 4.3 H (2.2-4.2) g/dL Albumin/Globulin Ratio 0.6 L (0.9-2.4) RATIO U Random Total Protein (<11.9) mg/dL Urine Creatinine (NO RANGE EST.) mg/dL Protein/Creatinin Ratio (0-200) mg/g CRE Review of Systems Constitutional: Reports: Fever, Malaise, Fatigue Eyes: Denies: Blurred vision, Vision Change HEENT: Denies: Head Aches, Visual Changes Cardiovascular: Reports: Chest Pressure. Denies: Chest Pain, Palpitations Respiratory: Reports: Cough, Pleuritic Pain. Denies: Shortness of Breath, Wheezing Gastrointestinal: Reports: Nausea, Vomiting. Denies: Abdominal Pain, Diarrhea Genitourinary: Denies: Dysuria, Hematuria Musculoskeletal: Denies: Joint Pain, Muscle pain Skin: Denies: Lesions, Rash Neurological: Denies: Blurred vision, Focal weakness, Headaches Psychiatric: Denies: Anxiety, Depression Endocrine: Denies: Heat/ Cold Intolerance Hematologic/ Lymphatic: Denies: Easy Bruising, Easy Bleeding Physical Exam Vitals: Vital Signs Temp Pulse BP Pulse Ox 98.8 F 101 H 130/64 H 97 12/11/20 07:34 12/11/20 07:28 12/11/20 07:28 12/11/20 06:21 General: Alert, Cooperative, No apparent distress HEENT: Atraumatic, Normocephalic. Negative for: Thyromegaly, Lymphadenopathy Cardiovascular: Regular Rhythm, Normal S1, Normal S2, No murmurs, No Ectopic Activity, Tachycardic - 105 Lungs: Normal air movement - Mildly decreased at bases Abdomen: Soft, Non Tender, Gravid Neurological: Deep Tendon Reflexes 2+/4 and Symmetrical, Neuro grossly intact. Negative for: Clonus MANAGER LEGAL: Normal external genitalia. Negative for: Vulvar lesions Estimated gestational size: Appropriate for gestational size Presentation: Cephalic NST - FHR Rate Baby A Baseline: 150 Variability:: Minimal, Moderate Accelerations:: 15 x 15 Decelerations:: None NST Reactive:: Yes FHR Category:: Category I - predominantly, Category II - intermittent but overall reassuring Uterine Activity:: irritability Impression/Plan 25-year-old G2, P1 at 37 weeks presents with COVID-19 infection and decreased movement Lab evaluation ordered and antiemetics IV fluids given for resuscitation due to volume depletion. Scheduled Tylenol given for fever. Pulse ox maintaining over 95% on room air. Patient in no visible respiratory distress. Initial liver enzyme elevated suspected due to nausea and vomiting and infection we will follow serial labs. Urine protein creatinine ratio within normal limits and no elevated blood pressures or signs of preeclampsia. No indication for antiretroviral therapy at this time. Cardiac enzymes ordered due to chest pressure and chest x-ray. Negative and within normal limits. Multi Select Codes - Visit Charges Observation E&M Codin Initial observation care L3
[2020-12-11] MEDS: Enoxaparin 40 MG/0.4 ML Syringe SC (10:22)
== END 2020-12-11 10:40 | disposition home or self-care (01) ==
LOC: WPOUT 17:20 → WP 17:20
PROVIDERS: PCP Internal Medicine; Referring Provider Obstetrics & Gynecology; Visit Provider Obstetrics & Gynecology
DX: O98.513 Other viral diseases complicating pregnancy, third trimester (principal); U07.1 COVID-19; O10.913 Unspecified pre-existing hypertension complicating pregnancy, third trimester; O36.8130 Decreased fetal movements, third trimester, not applicable or unspecified; O99.891 Other specified diseases and conditions complicating pregnancy; R07.89 Other chest pain; E66.9 Obesity, unspecified; O99.213 Obesity complicating pregnancy, third trimester; Z3A.37 37 weeks gestation of pregnancy; Z79.82 Long term (current) use of aspirin; Z79.899 Other long term (current) drug therapy
CPT/HCPCS: 96361 ×12; 96374; 96375; 36415; 59025; 59050; 71045; 76819; 80053; 82570; 84156; 84484; 85025; 85027; 96372; 99218; J7120; G0378; J2405

== ENCOUNTER 2020-12-17 19:05 | Inpatient (IN) | payer MEDICAID, SELFPAY ==
[2020-12-10 17:28] VITALS: BMI 35.3
[2020-12-17] VITALS (7 sets, daily range): BP systolic 137–144; BP diastolic 82–90; PULSE 64–95; TEMP 37–37.6; O2SAT 84–98; BMI 35.2
[2020-12-17] MEDS: Lactated Ringers 1,000 ML 50 ML IV (19:40)
[2020-12-17] MEDS: miSOPROStol 25 MCG TABLET VAGINAL ×2 (19:49→22:53)
[2020-12-17 20:17] LABS: Absolute Lymphocyte Count 2.94 X10^3/uL (0.83-4.51); Absolute Neutrophil Count 4.3 X10^3/uL (2.0-7.7); Basophil# 0.03 X10^3/uL; Basophil% 0.4 % (0-1); Eosinophil# 0.05 X10^3/uL; Eosinophils% 0.6 % (0-5); Hematocrit 35.5 % (37-47); Hemoglobin 12.7 g/dL (12.0-15.0); Lymphocyte # 2.94 X10^3/ul (0.83-4.51); Lymphocyte % 36.8 % (19-41); Mean Corp Hgb Conc 35.8 g/dL (32-36); Mean Corpuscular Hgb 34.2 pg (27.0-32.0); Mean Corpuscular Volume 95.7 fL (81-99); Mean Platelet Vol. 11.2 fl (6.2-12.0); Monocyte# 0.57 X10^3/uL; Monocyte% 7.1 % (0-10); NRBC Flagged by Analyzer 0.4 % (0-5); Platelet Count 257 K/mm3 (150-450); RBC Distribution Width CV 16.6 % (11.6-14.6); RBC Distribution Width SD 47.9 fl (35.1-43.9); Red Blood Count 3.71 M/mm3 (4.2-5.4)
[2020-12-17] MEDS: FLUoxetine 20 MG Capsule 80 MG PO (21:43)
[2020-12-18] VITALS (136 sets, daily range): BP systolic 107–152; BP diastolic 59–98; PULSE 65–225; RESP 16–20; TEMP 36.5–37.2; O2SAT 84–100
[2020-12-18] MEDS: Lactated Ringers 500 ML 999 ML IV ×3 (04:03→06:32)
[2020-12-18] MEDS: Ondansetron 4 MG/2 ML Vial IV (04:22)
[2020-12-18] MEDS: Lactated Ringers 1,000 ML 50 ML IV (05:00)
[2020-12-18] MEDS: proCHLORPERazine 10 MG/2 ML Vial IV (05:05)
[2020-12-18] MEDS: fentaNYL-bupivacaine (epidural) 100 ML BAG EPIDURAL (05:10)
[2020-12-18] MEDS: ePHEDrine Sulfate 50 MG/ML Ampul 10 MG IV (05:21)
[2020-12-18] MEDS: Oxytocin 30 units/NS 500 ml 30 UNITS/500 ML IV.SOLN 334 UNITS IV (07:26)
[2020-12-18] MEDS: Carboprost Tromethamine 250 MCG/ML Ampul IM ×4 (08:18→13:13)
[2020-12-18] MEDS: 0.9% Normal Saline 1,000 ML IV.SOLN. 999 ML IV (08:30)
[2020-12-18] MEDS: miSOPROStol 200 MCG Tablet 1000 MCG RC (08:33)
[2020-12-18] MEDS: Oxytocin 30 units/NS 500 ml 30 UNITS/500 ML IV.SOLN 999 UNITS IV ×2 (08:45→13:15)
[2020-12-18 08:51] LABS: Absolute Lymphocyte Count 2.01 X10^3/uL (0.83-4.51); Absolute Neutrophil Count 7.9 X10^3/uL (2.0-7.7); Basophil# 0.03 X10^3/uL; Basophil% 0.3 % (0-1); Eosinophil# 0.01 X10^3/uL; Eosinophils% 0.1 % (0-5); Hematocrit 35.8 % (37-47); Lymphocyte # 2.01 X10^3/ul (0.83-4.51); Lymphocyte % 18.9 % (19-41); Mean Corp Hgb Conc 33.5 g/dL (32-36); Mean Corpuscular Hgb 31.5 pg (27.0-32.0); Mean Platelet Vol. 11.1 fl (6.2-12.0); Monocyte# 0.58 X10^3/uL; Monocyte% 5.5 % (0-10); NRBC Flagged by Analyzer 0 % (0-5); Neutrophil # 7.89 X10^3/uL (2.7-7.7); Neutrophil % 74.1 % (47-70); Platelet Count 262 K/mm3 (150-450); RBC Distribution Width CV 14.5 % (11.6-14.6); Red Blood Count 3.81 M/mm3 (4.2-5.4); White Blood Count 10.6 K/mm3 (4.4-11.0)
[2020-12-18 09:13] LABS: International Normalized Ratio 0.9
[2020-12-18 09:14] LABS: Fibrinogen 279 mg/dl (203-444); Partial Thromboplast Time 28.3 Seconds (24.1-36.2)
[2020-12-18] MEDS: 0.9% Saline Lock 10 ML Syringe IV ×8 (09:55→18:35)
[2020-12-18] MEDS: fentaNYL 100 MCG/2 ML Ampul IV (10:05)
[2020-12-18 10:48] LABS: Hematocrit 27.4 % (37-47); Hemoglobin 8.9 g/dL (12.0-15.0); Mean Corp Hgb Conc 32.5 g/dL (32-36); Mean Corpuscular Hgb 31.6 pg (27.0-32.0); Mean Corpuscular Volume 97.2 fL (81-99); Mean Platelet Vol. 11.1 fl (6.2-12.0); Platelet Count 215 K/mm3 (150-450); RBC Distribution Width CV 14.5 % (11.6-14.6); RBC Distribution Width SD 49.4 fl (35.1-43.9); Red Blood Count 2.82 M/mm3 (4.2-5.4); White Blood Count 11.6 K/mm3 (4.4-11.0)
[2020-12-18 10:55] LABS: Fibrinogen 214 mg/dl (203-444); International Normalized Ratio 1.1; Partial Thromboplast Time 29.7 Seconds (24.1-36.2); Prothrombin Time (Protime)PT. 13.1 SECONDS (11.7-14.9)
[2020-12-18] MEDS: Lactated Ringers 1,000 ML 125 ML IV (10:58)
[2020-12-18] MEDS: 0.9% Normal Saline Single 100 ML IV.SOLN. INTRA-UTER (11:26)
[2020-12-18] MEDS: Cefazolin 2 GM in 0.9% Normal Saline 100 ML IV ×2 (11:51→17:57)
[2020-12-18] MEDS: fentaNYL 100 MCG/2 ML Ampul 50 MCG IV ×2 (13:12→13:51)
[2020-12-18 13:49] LABS: Hematocrit 24.3 % (37-47); Hemoglobin 7.9 g/dL (12.0-15.0); Mean Corp Hgb Conc 32.5 g/dL (32-36); Mean Corpuscular Hgb 31.3 pg (27.0-32.0); Mean Corpuscular Volume 96.4 fL (81-99); Mean Platelet Vol. 10.7 fl (6.2-12.0); Platelet Count 237 K/mm3 (150-450); RBC Distribution Width CV 14.8 % (11.6-14.6); RBC Distribution Width SD 50.3 fl (35.1-43.9); Red Blood Count 2.52 M/mm3 (4.2-5.4); White Blood Count 15.4 K/mm3 (4.4-11.0)
[2020-12-18 13:58] LABS: Fibrinogen 272 mg/dl (203-444)
--- NOTE | 2020-12-18 14:12 | PCM.PN.BLA ---
Progress Note Initially called and hour and a half to evaluate due to hemorrhage. Patient evaluated in 1500 cc blood loss assessed and therefore labs ordered, second IV started, patient was given 2 doses of Hemabate, Cytotec 1000 mcg rectally, Pitocin through the IV bimanual massage performed. Tranexamic acid was given. Palpable in placed and excellent uterine tone was noted, ultrasound revealed no retained products. Cervix was inspected and no lacerations seen but in general oozing appearance. Bakri balloon was placed to provide tamponade into the lining of the uterus and the cervix which served to stabilize. Several hours later bleeding recurred and therefore the back of balloon was removed and additional 1200 cc blood loss was calculated to have been lost. Pitocin and an additional Hemabate was given and again no atony was palpated. Cervix was inspected and well no lacerations were obviously seen the raw appearance was oversewn with interrupted stitches of 0 Vicryl which obtain excellent hemostasis. All dose of tranexamic acid was given ultrasound performed to confirm no retained products. Patient had been given a unit of cryo due to low fibrinogen and 2 units of PRBCs and 1 unit of FFP was ordered and given. Additional blood work will be checked4 hours post transfusion. ancef additional dose ordered. scds on. Assessment & Plan Assessment/Plan (1) hemorrhage: Status: Acute Code(s): O72.1 - Other immediate hemorrhage
--- NOTE | 2020-12-18 14:26 | OP.PCM_ITS ---
Problems Associated Problem List Diagnoses (1) hemorrhage: (2) Vaginal delivery following previous section, delivered: Report of Operation (OB) Information BRANDYN Calculator Estimated Delivery Date Method Current WG Current Estimate 12/29/20 Ultrasound #1 38w 3d Other Estimates 12/22/20 LMP (Certain) 39w 3d Induction Maternal Presentation: Medically Indicated Induction (cHTN) Type of Induction: Cytotec (2 doses) Findings Description of Procedure: Patient began pushing and delivered the head in the ALLISON presentation. The head was delivered atraumatically, no nuchal cord was seen but a body cord around the back of the baby and arms was noted . The anterior and posterior shoulders delivered without complication followed by the rest of the infant and the infant was placed on the maternal abdomen. Delayed cord clamping was employed for approximately 60 seconds. Cord was clamped and cut and gentle traction was applied to the cord and the placenta delivered spontaneously immediately following it was noted to be intact with three-vessel cord. The perineum and vagina were inspected and noted to have no laceration. EBL was 100 cc. Patient and infant tolerated delivery well. Surgery/ Procedure Performed: Spontaneous Vaginal Delivery Presentation: Positive for ALLISON Amniotic Membrane Rupture Type: Artificial Amniotic Fluid Description: Clear Placental Delivery Description: Spontaneous Placenta Disposition: [facility] Cord Vessel Description: 3 Vessels Cord Entanglement: None Cord Gases: ABG and VBG Infant Gender: Male Delayed Cord Clamping: Yes Fluids Replaced: crystalloid Esitmated Blood Loss (mL): 100 Medications Given Medications Given After Delivery: IV Pitocin Post Vaginal Delivery Episiotomy Description: None Laceration: None Baby B Information Amniotic Membrane Rupture Type: Artificial Operative Information Cord Entanglement: None Cord Vessel Description: 3 Vessels [id number]: [id number] Vaginal Delivery [facility]
--- NOTE | 2020-12-18 14:29 | PCM.HP.OB ---
HPI - General General Date of Admission: 12/17/20 HPI Narrative LAURA VALENCIA, is a 25 F who presents for IOL sec cHTN. she was diagnosed and treated for COVID 10 days ago and is out of quarantine, condition resolved and feeling good. no vb lof good fm no regular ctx. [facility] Medical History (Updated 12/18/20 @ 17:[address] Destini Villasenor MD) Anxiety Bipolar disorder Depression Home Medications folic acid 400 mcg tablet 0.4 mg PO DAILY 09/02/18 [History Last Taken 12/09/20] vitamin#30 30 mg iron-10 mg iron-folic acid 1 mg-omg3 capsule 1 cap PO DAILY cap 09/02/18 [History Last Taken 12/09/20] ondansetron 4 mg disintegrating tablet 4 mg PO Q8H PRN #20 tab 06/20/19 [Rx Last Taken 12/09/20] hydrocortisone 2.5 % topical cream 1 applic TOPICAL BID PRN #30 gm 12/04/20 [Rx Last Taken 12/09/20] aspirin 81 mg PO DAILY@0800 12/10/20 [History Last Taken 12/09/20] ondansetron HCl 4 mg PO 4X/DAY PRN PRN #30 tablet 12/11/20 [Rx Last Taken Unknown] prochlorperazine maleate 5 mg PO Q4H PRN PRN 15 Days #30 tablet 12/11/20 [Rx Last Taken Unknown] fluoxetine 80 mg PO DAILY 12/17/20 [History Last Taken Unknown] Allergy/AdvReac Type Severity Reaction Status Date / Time prednisone Allergy Mild Other Verified 12/17/20 20:35 Family History Unknown Diabetes Grandmother Breast cancer Surgical History History of hysterosalpingogram Social History (Updated 12/07/20 @ 17:34 by LIBERTY York) Smoking Status: Never smoker alcohol intake: never substance use type: does not use caffeine: No what type of physical activity do you participate in: none seatbelt use: always do you feel safe at home: Yes additional social history: [employer] 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 [employer] History 2 Elective abortions Hx Para 1 Spontaneous abortions Hx # Term Pregnancies 1 Ectopic pregnancies Hx # Pregnancies Multiple births # of living children 1 NST FHR Rate Baby A Baseline: 140 Variability:: Moderate Accelerations:: None Decelerations:: None NST Reactive:: Appropriate for gestational age and Non-Reactive ROS Review of Systems ROS Unobtainable: due to mental status and other Constitutional Constitutional: Reports systems reviewed and no addt'l complaints, except as documented; Denies as per HPI, change in weight, fatigue, fever(s), malaise, weakness or other Eyes Eyes: Reports systems reviewed and no addt'l complaints, except as documented; Denies as per HPI, change in vision or other ENT HEENT: Reports as per HPI; Denies dizziness, dry mouth, headache(s), loss taste/smell, nasal congestion, nasal discharge, neck pain, sore throat or other Respiratory/Chest Respiratory/Chest: Reports systems reviewed and no addt'l complaints, except as documented Gastrointestinal Gastrointestinal: Reports systems reviewed and no addt'l complaints, except as documented; Denies abdominal pain, nausea or vomiting Musculoskeletal Musculoskeletal: Reports systems reviewed and no addt'l complaints, except as documented; Denies back pain or joint pain Integumentary Integumentary: Reports systems reviewed and no addt'l complaints, except as documented Neurologic Neurologic: Reports systems reviewed and no addt'l complaints, except as documented Psychiatric Psychiatric: Reports systems reviewed and no addt'l complaints, except as documented Endocrine Endocrinology: Reports systems reviewed and no addt'l complaints, except as documented Hematologic/Lymphatic Hematologic/Lymphatic: Reports systems reviewed and no addt'l complaints, except as documented Vital Signs Vital Signs Vital Signs: 12/17/20 19:52 12/17/20 20:11 12/17/20 20:41 Temperature 99.6 F H 98.6 F Temperature Source Temporal Temporal Pulse Rate 79 70 Respiratory Rate Blood Pressure 144/82 H Blood Pressure Mean BP Systolic 144 BP Diastolic 82 Blood Pressure Source Blood Pressure Position Blood Pressure Location Pulse Ox 95 94 Oxygen Delivery Method 12/17/20 20:49 12/17/20 20:50 12/17/20 23:01 Temperature Temperature Source Pulse Rate 78 95 64 Respiratory Rate Blood Pressure 138/90 H 137/84 H Blood Pressure Mean BP Systolic 138 137 BP Diastolic 90 84 Blood Pressure Source Blood Pressure Position Blood Pressure Location Pulse Ox 84 Oxygen Delivery Method 12/17/20 23:02 12/18/20 02:20 12/18/20 02:21 Temperature 98.8 F 97.7 F L Temperature Source Temporal Temporal Pulse Rate 76 86 Respiratory Rate Blood Pressure 152/84 H 146/86 H Blood Pressure Mean BP Systolic 152 146 BP Diastolic 84 86 Blood Pressure Source Blood Pressure Position Blood Pressure Location Pulse Ox 98 Oxygen Delivery Method 12/18/20 04:38 12/18/20 04:44 12/18/20 04:50 Temperature Temperature Source Pulse Rate 83 83 89 Respiratory Rate Blood Pressure 135/96 H 149/96 H 144/90 H Blood Pressure Mean BP Systolic 135 149 144 BP Diastolic 96 96 90 Blood Pressure Source Blood Pressure Position Blood Pressure Location Pulse Ox Oxygen Delivery Method 12/18/20 04:51 12/18/20 04:53 12/18/20 04:56 Temperature Temperature Source Pulse Rate 95 93 97 Respiratory Rate Blood Pressure 140/91 H Blood Pressure Mean BP Systolic 140 BP Diastolic 91 Blood Pressure Source Blood Pressure Position Blood Pressure Location Pulse Ox 99 98 Oxygen Delivery Method 12/18/20 05:01 12/18/20 05:04 12/18/20 05:06 Temperature Temperature Source Pulse Rate 107 H 83 88 Respiratory Rate Blood Pressure 138/89 H 128/87 H Blood Pressure Mean BP Systolic 138 128 BP Diastolic 89 87 Blood Pressure Source Blood Pressure Position Blood Pressure Location Pulse Ox 97 99 Oxygen Delivery Method 12/18/20 05:07 12/18/20 05:11 12/18/20 05:14 Temperature Temperature Source Pulse Rate 70 83 80 Respiratory Rate Blood Pressure 137/87 H 116/60 Blood Pressure Mean BP Systolic 137 116 BP Diastolic 87 60 Blood Pressure Source Blood Pressure Position Blood Pressure Location Pulse Ox 97 Oxygen Delivery Method 12/18/20 05:16 12/18/20 05:17 12/18/20 05:19 Temperature Temperature Source Pulse Rate 80 74 78 Respiratory Rate Blood Pressure 107/59 L 110/60 Blood Pressure Mean BP Systolic 107 110 BP Diastolic 59 60 Blood Pressure Source Blood Pressure Position Blood Pressure Location Pulse Ox 96 Oxygen Delivery Method 12/18/20 05:21 12/18/20 05:22 12/18/20 05:26 Temperature Temperature Source Pulse Rate 75 72 72 Respiratory Rate Blood Pressure 123/67 H Blood Pressure Mean BP Systolic 123 BP Diastolic 67 Blood Pressure Source Blood Pressure Position Blood Pressure Location Pulse Ox 97 96 Oxygen Delivery Method 12/18/20 05:29 12/18/20 05:30 12/18/20 05:31 Temperature Temperature Source Pulse Rate 71 78 87 Respiratory Rate Blood Pressure 123/62 H 124/64 H Blood Pressure Mean BP Systolic 123 124 BP Diastolic 62 64 Blood Pressure Source Blood Pressure Position Blood Pressure Location Pulse Ox 94 96 Oxygen Delivery Method 12/18/20 05:33 12/18/20 05:36 12/18/20 05:39 Temperature Temperature Source Pulse Rate 85 65 67 Respiratory Rate Blood Pressure 130/73 H 122/74 H Blood Pressure Mean BP Systolic 130 122 BP Diastolic 73 74 Blood Pressure Source Blood Pressure Position Blood Pressure Location Pulse Ox 96 Oxygen Delivery Method 12/18/20 05:41 12/18/20 05:43 12/18/20 06:05 Temperature Temperature Source Pulse Rate 71 225 H 93 Respiratory Rate Blood Pressure 116/69 Blood Pressure Mean BP Systolic 116 BP Diastolic 69 Blood Pressure Source Blood Pressure Position Blood Pressure Location Pulse Ox 95 85 Oxygen Delivery Method 12/18/20 06:50 12/18/20 07:35 12/18/20 07:42 Temperature Temperature Source Pulse Rate 94 80 76 Respiratory Rate Blood Pressure 131/80 H 134/76 H 133/77 H Blood Pressure Mean BP Systolic 131 134 133 BP Diastolic 80 76 77 Blood Pressure Source Blood Pressure Position Blood Pressure Location Pulse Ox 98 Oxygen Delivery Method 12/18/20 07:47 12/18/20 07:57 12/18/20 08:12 Temperature Temperature Source Pulse Rate 127 H 82 96 Respiratory Rate Blood Pressure 120/66 121/73 H Blood Pressure Mean BP Systolic 120 121 BP Diastolic 66 73 Blood Pressure Source Blood Pressure Position Blood Pressure Location Pulse Ox 84 Oxygen Delivery Method 12/18/20 08:26 12/18/20 08:30 12/18/20 08:31 Temperature Temperature Source Pulse Rate 92 82 100 Respiratory Rate Blood Pressure 120/72 129/83 H 131/86 H Blood Pressure Mean BP Systolic 120 129 131 BP Diastolic 72 83 86 Blood Pressure Source Blood Pressure Position Blood Pressure Location Pulse Ox 97 97 Oxygen Delivery Method 12/18/20 08:33 12/18/20 08:35 12/18/20 08:36 Temperature Temperature Source Pulse Rate 100 91 103 H Respiratory Rate Blood Pressure 130/86 H 136/87 H Blood Pressure Mean BP Systolic 130 136 BP Diastolic 86 87 Blood Pressure Source Blood Pressure Position Blood Pressure Location Pulse Ox 95 Oxygen Delivery Method 12/18/20 08:37 12/18/20 08:39 12/18/20 08:41 Temperature Temperature Source Pulse Rate 93 100 104 H Respiratory Rate Blood Pressure 141/86 H 147/91 H 138/82 H Blood Pressure Mean BP Systolic 141 147 138 BP Diastolic 86 91 82 Blood Pressure Source Blood Pressure Position Blood Pressure Location Pulse Ox 96 Oxygen Delivery Method 12/18/20 08:43 12/18/20 08:45 12/18/20 08:46 Temperature Temperature Source Pulse Rate 94 100 Respiratory Rate Blood Pressure 141/84 H 137/81 H Blood Pressure Mean BP Systolic 141 137 BP Diastolic 84 81 Blood Pressure Source Blood Pressure Position Blood Pressure Location Pulse Ox 94 94 Oxygen Delivery Method 12/18/20 08:47 12/18/20 08:49 12/18/20 08:51 Temperature Temperature Source Pulse Rate 92 100 95 Respiratory Rate Blood Pressure 139/80 H 132/80 H 134/81 H Blood Pressure Mean BP Systolic 139 132 134 BP Diastolic 80 80 81 Blood Pressure Source Blood Pressure Position Blood Pressure Location Pulse Ox 94 93 Oxygen Delivery Method 12/18/20 08:53 12/18/20 08:54 12/18/20 08:55 Temperature Temperature Source Pulse Rate 96 107 H 106 H Respiratory Rate Blood Pressure 131/80 H 128/78 H Blood Pressure Mean BP Systolic 131 128 BP Diastolic 80 78 Blood Pressure Source Blood Pressure Position Blood Pressure Location Pulse Ox 94 Oxygen Delivery Method 12/18/20 08:56 12/18/20 09:00 12/18/20 09:01 Temperature Temperature Source Pulse Rate 101 H 111 H 122 H Respiratory Rate Blood Pressure 129/79 H Blood Pressure Mean BP Systolic 129 BP Diastolic 79 Blood Pressure Source Blood Pressure Position Blood Pressure Location Pulse Ox 94 94 95 Oxygen Delivery Method 12/18/20 09:06 12/18/20 09:11 12/18/20 09:15 Temperature 98.1 F Temperature Source Pulse Rate 121 H 112 H 118 H Respiratory Rate Blood Pressure 135/81 H Blood Pressure Mean BP Systolic 135 BP Diastolic 81 Blood Pressure Source Blood Pressure Position Blood Pressure Location Pulse Ox 97 93 Oxygen Delivery Method 12/18/20 09:16 12/18/20 09:22 12/18/20 09:26 Temperature Temperature Source Pulse Rate 122 H 118 H 119 H Respiratory Rate Blood Pressure Blood Pressure Mean BP Systolic BP Diastolic Blood Pressure Source Blood Pressure Position Blood Pressure Location Pulse Ox 94 94 96 Oxygen Delivery Method 12/18/20 09:30 12/18/20 09:31 12/18/20 09:36 Temperature 98.1 F Temperature Source Temporal Pulse Rate 110 H 113 H 111 H Respiratory Rate Blood Pressure 133/82 H Blood Pressure Mean BP Systolic 133 BP Diastolic 82 Blood Pressure Source Blood Pressure Position Blood Pressure Location Pulse Ox 96 96 Oxygen Delivery Method 12/18/20 09:41 12/18/20 09:45 12/18/20 09:46 Temperature Temperature Source Pulse Rate 107 H 108 H 109 H Respiratory Rate Blood Pressure 132/84 H Blood Pressure Mean BP Systolic 132 BP Diastolic 84 Blood Pressure Source Blood Pressure Position Blood Pressure Location Pulse Ox 96 97 Oxygen Delivery Method 12/18/20 09:51 12/18/20 09:56 12/18/20 09:57 Temperature Temperature Source Pulse Rate 114 H 109 H 116 H Respiratory Rate Blood Pressure Blood Pressure Mean BP Systolic BP Diastolic Blood Pressure Source Blood Pressure Position Blood Pressure Location Pulse Ox 98 95 94 Oxygen Delivery Method 12/18/20 10:00 12/18/20 10:15 12/18/20 10:32 Temperature 97.9 F Temperature Source Temporal Pulse Rate 94 96 93 Respiratory Rate Blood Pressure 126/77 H 118/73 132/82 H Blood Pressure Mean BP Systolic 126 118 132 BP Diastolic 77 73 82 Blood Pressure Source Blood Pressure Position Blood Pressure Location Pulse Ox Oxygen Delivery Method 12/18/20 10:45 12/18/20 11:00 12/18/20 11:15 Temperature Temperature Source Pulse Rate 80 88 102 H Respiratory Rate Blood Pressure 127/83 H 126/84 H 121/81 H Blood Pressure Mean BP Systolic 127 126 121 BP Diastolic 83 84 81 Blood Pressure Source Blood Pressure Position Blood Pressure Location Pulse Ox Oxygen Delivery Method 12/18/20 11:30 12/18/20 11:45 12/18/20 12:24 Temperature 98.2 F Temperature Source Temporal Pulse Rate 102 H 99 89 Respiratory Rate 16 Blood Pressure 124/83 H 125/86 H 119/80 Blood Pressure Mean 93 BP Systolic 124 125 BP Diastolic 83 86 Blood Pressure Source Monitor Blood Pressure Position Semi-Fowlers Blood Pressure Location Right Arm Pulse Ox 97 Oxygen Delivery Method Room Air 12/18/20 12:26 12/18/20 12:39 12/18/20 12:40 Temperature 98.5 F Temperature Source Temporal Pulse Rate 89 95 95 Respiratory Rate 16 Blood Pressure 119/80 123/86 H 123/86 H Blood Pressure Mean 98 BP Systolic 119 123 BP Diastolic 80 86 Blood Pressure Source Monitor Blood Pressure Position Semi-Fowlers Blood Pressure Location Right Arm Pulse Ox 99 Oxygen Delivery Method Room Air 12/18/20 13:08 12/18/20 13:14 12/18/20 13:19 Temperature Temperature Source Pulse Rate 126 H 86 99 Respiratory Rate Blood Pressure 116/80 122/79 H 130/76 H Blood Pressure Mean BP Systolic 116 122 130 BP Diastolic 80 79 76 Blood Pressure Source Blood Pressure Position Blood Pressure Location Pulse Ox 98 Oxygen Delivery Method 12/18/20 13:24 12/18/20 13:28 12/18/20 13:29 Temperature 98.4 F Temperature Source Temporal Pulse Rate 95 95 95 Respiratory Rate 18 Blood Pressure 130/84 H 137/81 H 137/81 H Blood Pressure Mean 99 BP Systolic 130 137 BP Diastolic 84 81 Blood Pressure Source Monitor Blood Pressure Position Supine Blood Pressure Location Left Arm Pulse Ox 98 98 Oxygen Delivery Method Room Air 12/18/20 13:33 12/18/20 13:34 12/18/20 13:35 Temperature Temperature Source Pulse Rate 81 92 93 Respiratory Rate Blood Pressure 137/81 H Blood Pressure Mean BP Systolic 137 BP Diastolic 81 Blood Pressure Source Blood Pressure Position Blood Pressure Location Pulse Ox 95 94 Oxygen Delivery Method 12/18/20 13:37 12/18/20 13:38 12/18/20 13:39 Temperature Temperature Source Pulse Rate 91 112 H Respiratory Rate Blood Pressure 139/82 H 138/77 H Blood Pressure Mean BP Systolic 139 138 BP Diastolic 82 77 Blood Pressure Source Blood Pressure Position Blood Pressure Location Pulse Ox 98 Oxygen Delivery Method 12/18/20 13:44 12/18/20 13:49 12/18/20 13:54 Temperature Temperature Source Pulse Rate 97 94 81 Respiratory Rate Blood Pressure 136/74 H 141/82 H 143/85 H Blood Pressure Mean BP Systolic 136 141 143 BP Diastolic 74 82 85 Blood Pressure Source Blood Pressure Position Blood Pressure Location Pulse Ox 98 97 94 Oxygen Delivery Method 12/18/20 13:59 12/18/20 14:04 12/18/20 14:09 Temperature Temperature Source Pulse Rate 89 84 80 Respiratory Rate Blood Pressure 138/94 H 134/81 H 136/79 H Blood Pressure Mean BP Systolic 138 134 136 BP Diastolic 94 81 79 Blood Pressure Source Blood Pressure Position Blood Pressure Location Pulse Ox 95 96 96 Oxygen Delivery Method 12/18/20 14:14 12/18/20 14:19 12/18/20 14:24 Temperature 98.0 F Temperature Source Temporal Pulse Rate 89 95 83 Respiratory Rate Blood Pressure 136/83 H Blood Pressure Mean BP Systolic 136 BP Diastolic 83 Blood Pressure Source Blood Pressure Position Blood Pressure Location Pulse Ox 98 98 Oxygen Delivery Method 12/18/20 14:27 Temperature Temperature Source Pulse Rate 88 Respiratory Rate Blood Pressure Blood Pressure Mean BP Systolic BP Diastolic Blood Pressure Source Blood Pressure Position Blood Pressure Location Pulse Ox 100 Oxygen Delivery Method Physical Exam Const alert, oriented x3 and no apparent distress HEENT normocephalic Head and Scalp: atraumatic Eyes EOMs intact bilaterally and conjunctivae normal Neck full ROM, no lymphadenopathy, supple and thyroid normal General: trachea midline Lymph Lymphatic: no lymphadenopathy noted Chest inspection of chest normal, palpation of chest normal, inspection of breasts normal and palpation of breasts normal Breast/Axilla Inspection: normal inspection of the axillae Breast/Axilla Palpation: normal palpation of the axillae and no axillary lymphadenopathy Resp normal respiratory effort, no retractions, no use of accessory muscles and clear to auscultation bilaterally Cardio regular rate and regular rhythm GI normal to inspection, nondistended, normoactive bowel sounds, soft to palpation, non-tender, non-distended and no masses external exam normal, appearance of the vagina normal, appearance of the cervix normal, bimanual exam normal, adnexae non-tender and no adnexal masses Back/Spine no CVA tenderness Extremity normal to inspection Skin no rashes or lesions noted Neuro moves all extremities and deep tendon reflexes 2+ bilaterally Motor Exam: clonus absent and clonus present Psych mental status grossly normal Assessment & Plan Assessment/Plan (1) 35 weeks gestation of : Status: Acute Code(s): Z3A.35 - 35 weeks gestation of (2) COVID-19 affecting , antepartum: Status: Acute Code(s): O98.519 - Other viral diseases complicating , unspecified trimester; U07.1 - COVID-19 (3) History of tetanus, diphtheria, and acellular pertussis booster vaccination (Tdap): Status: Acute Code(s): Z92.29 - Personal history of other drug therapy (4) Obesity affecting : Status: Acute Code(s): O99.210 - Obesity complicating , unspecified trimester Qualifiers: Trimester: third trimester Qualified Code(s): O99.213 - Obesity complicating , third trimester (5) Anxiety and depression: Status: Acute Code(s): F41.9 - Anxiety disorder, unspecified; F32.9 - Major depressive disorder, single episode, unspecified (6) : Status: Acute Code(s): Z34.90 - Encounter for supervision of normal , unspecified, unspecified trimester Qualifiers: Weeks of gestation: 34 weeks Qualified Code(s): Z3A.34 - 34 weeks gestation of (7) Chronic hypertension affecting : Status: Chronic Code(s): O10.919 - Unspecified pre-existing hypertension complicating , unspecified trimester (8) Bipolar disorder: Status: Chronic Code(s): F31.9 - Bipolar disorder, unspecified Qualifiers: Active/Remission status: in full remission Most recent bipolar episode type: most recent episode unspecified type Qualified Code(s): F31.70 - Bipolar disorder, currently in remission, most recent episode unspecified (9) Supervision of with history of infertility: Status: Acute Code(s): O09.00 - Supervision of with history of infertility, unspecified trimester (10) Encounter for induction of labor: Status: Acute Code(s): Z34.90 - Encounter for supervision of normal , unspecified, unspecified trimester Plan: Patient presents IOL, plan management for with .cytotec Pain management: plans epidural. GBS negative. Management of any complications: cHTN- no meds, controlled. recent covid, out of quarantine I have reviewed the [facility] and made any clinically relevant updates.
--- NOTE | 2020-12-18 14:44 | CHAPLAIN ---
Type of Pastoral Visit ___ Initial Visit ___ Follow-up Visit ___ On-call Visit ___ General Patient Visit ___ Spiritual Assessment ___ Family Conference ___ Bereavement ___ Rapid Response ___ Code Blue _x__ Other (describe below) Pastoral Care Referral From ___ Patient _x__ Family ___ Nurse ___ Physician ___ Sterile Proc Tech ___ Process Server ___ Other (describe below) Sacrament/Intervention _x__ Active listening ___ Anointing ___ Christian ___ Bereavement ___ Communion ___ Heather exploration ___ ___ Life review _x__ Prayer ___ Reconciliation ___ Sacrament of Sick ___ Supportive presence ___ Wedding ___ Other (describe below) Pastoral Comments phone call into patient room; her baby delivered this morning is being transported to [facility]; prayer and words of encouragement shared with mother
--- NOTE | 2020-12-18 15:44 | NURSING ---
RN in with pt attempting to pump again. FOB leaving for [facility]. Second support person at bedside with pt.
--- NOTE | 2020-12-18 18:23 | PCM.PN.OB ---
Subjective Subjective: patient seen and bleeding minimal, feeling better, will await repeat labs no CP SOB N V, decreased appetite Objective Data Objective Data Vital Signs: Vital Signs Temp Pulse Resp BP Pulse Ox 98.4 F 82 18 139/89 H 98 12/18/20 16:10 12/18/20 16:09 12/18/20 13:28 12/18/20 16:09 12/18/20 16:07 Oxygen Delivery Method Room Air Weight: 218 lb 2 oz Body Mass Index (BMI) 35.2 Intake & Output: Intake and Output for Last 24 Hours 12/16/20 12/17/20 12/18/20 23:59 23:59 23:59 Intake Total 5930.10 / 5930.10 Output Total 4907 / 4907 Balance 1023.10 / 1023.10 Lab / Micro Data Result Diagrams: 12/18/20 13:40 Labs: Laboratory Results - last 24 hr 12/17/20 12/17/20 12/17/20 19:40 19:40 19:40 WBC 8.0 RBC 3.71 L Hgb 12.7 Hct 35.5 L MCV 95.7 MCH 34.2 H MCHC 35.8 RDW Std Deviation 47.9 H RDW Coeff of Ibeth 16.6 H Plt Count 257 MPV 11.2 Immature Gran % (Auto) 1.100 H Neut % (Auto) 54.0 Lymph % (Auto) 36.8 [place] % (Auto) 7.1 Eos % (Auto) 0.6 Baso % (Auto) 0.4 Absolute Neuts (auto) 4.3 Absolute Lymphs (auto) 2.94 Nucleated RBC % 0.4 PT INR APTT Fibrinogen Blood Type O POSITIVE Antibody Screen NEGATIVE Crossmatch See Detail 12/17/20 12/18/20 12/18/20 19:40 08:35 08:35 WBC 10.6 RBC 3.81 L Hgb 12.0 Hct 35.8 L MCV 94.0 MCH 31.5 MCHC 33.5 D RDW Std Deviation 48.0 H RDW Coeff of Ibeth 14.5 Plt Count 262 MPV 11.1 Immature Gran % (Auto) 1.100 H Neut % (Auto) 74.1 H Lymph % (Auto) 18.9 L [place] % (Auto) 5.5 Eos % (Auto) 0.1 Baso % (Auto) 0.3 Absolute Neuts (auto) 7.9 H Absolute Lymphs (auto) 2.01 Nucleated RBC % 0 PT 12.0 INR 0.9 APTT 28.3 Fibrinogen 279 Blood Type Antibody Screen Crossmatch See Detail 12/18/20 12/18/20 12/18/20 10:30 10:30 13:40 WBC 11.6 H 15.4 H RBC 2.82 L 2.52 L Hgb 8.9 L 7.9 L Hct 27.4 L 24.3 L MCV 97.2 96.4 MCH 31.6 31.3 MCHC 32.5 32.5 RDW Std Deviation 49.4 H 50.3 H RDW Coeff of Ibeth 14.5 14.8 H Plt Count 215 237 MPV 11.1 10.7 Immature Gran % (Auto) Neut % (Auto) Lymph % (Auto) [place] % (Auto) Eos % (Auto) Baso % (Auto) Absolute Neuts (auto) Absolute Lymphs (auto) Nucleated RBC % PT 13.1 INR 1.1 APTT 29.7 Fibrinogen 214 Blood Type Antibody Screen Crossmatch 12/18/20 13:40 WBC RBC Hgb Hct MCV MCH MCHC RDW Std Deviation RDW Coeff of Ibeth Plt Count MPV Immature Gran % (Auto) Neut % (Auto) Lymph % (Auto) [place] % (Auto) Eos % (Auto) Baso % (Auto) Absolute Neuts (auto) Absolute Lymphs (auto) Nucleated RBC % PT INR APTT Fibrinogen 272 Blood Type Antibody Screen Crossmatch Physical Exam Const alert, oriented x3 and no apparent distress HEENT normocephalic Head and Scalp: atraumatic Eyes EOMs intact bilaterally Neck full ROM Resp normal respiratory effort Cardio regular rate and regular rhythm Assessment & Plan Assessment/Plan (1) Vaginal delivery following previous section, delivered: Status: Acute Code(s): O34.219 - Maternal care for unspecified type scar from previous delivery (2) hemorrhage: Status: Acute Code(s): O72.1 - Other immediate hemorrhage
[2020-12-18 18:44] LABS: Hematocrit 25.7 % (37-47); Hemoglobin 8.7 g/dL (12.0-15.0); Mean Corp Hgb Conc 33.9 g/dL (32-36); Mean Corpuscular Hgb 31.9 pg (27.0-32.0); Mean Corpuscular Volume 94.1 fL (81-99); Platelet Count 234 K/mm3 (150-450); RBC Distribution Width CV 14.2 % (11.6-14.6); Red Blood Count 2.73 M/mm3 (4.2-5.4); White Blood Count 16.3 K/mm3 (4.4-11.0)
[2020-12-18 18:57] LABS: International Normalized Ratio 1.1; Prothrombin Time (Protime)PT. 13.1 SECONDS (11.7-14.9)
[2020-12-18 18:58] LABS: Partial Thromboplast Time 27.3 Seconds (24.1-36.2)
[2020-12-18 19:36] LABS: Fibrinogen 301 mg/dl (203-444)
[2020-12-18] MEDS: oxyCODONE 5 MG Tablet PO (20:29)
[2020-12-18] MEDS: FLUoxetine 20 MG Capsule 80 MG PO (21:15)
[2020-12-19] VITALS (13 sets, daily range): BP systolic 115–146; BP diastolic 53–77; PULSE 78–106; RESP 16–18; TEMP 36.6–37.5; O2SAT 96–100
[2020-12-19 04:26] LABS: Absolute Lymphocyte Count 2.97 X10^3/uL (0.83-4.51); Absolute Neutrophil Count 9.6 X10^3/uL (2.0-7.7); Basophil# 0.03 X10^3/uL; Basophil% 0.2 % (0-1); Eosinophil# 0.02 X10^3/uL; Eosinophils% 0.1 % (0-5); Hematocrit 22.9 % (37-47); Hemoglobin 7.8 g/dL (12.0-15.0); Lymphocyte # 2.97 X10^3/ul (0.83-4.51); Mean Corp Hgb Conc 34.1 g/dL (32-36); Mean Corpuscular Hgb 32.8 pg (27.0-32.0); Mean Corpuscular Volume 96.2 fL (81-99); Mean Platelet Vol. 10.7 fl (6.2-12.0); Monocyte# 0.78 X10^3/uL; Monocyte% 5.8 % (0-10); NRBC Flagged by Analyzer 0 % (0-5); Neutrophil # 9.58 X10^3/uL (2.7-7.7); Neutrophil % 70.9 % (47-70); Platelet Count 271 K/mm3 (150-450); RBC Distribution Width CV 15.9 % (11.6-14.6); RBC Distribution Width SD 47.6 fl (35.1-43.9); Red Blood Count 2.38 M/mm3 (4.2-5.4); White Blood Count 13.5 K/mm3 (4.4-11.0)
[2020-12-19] MEDS: Enoxaparin 40 MG/0.4 ML Syringe SC (06:34)
--- NOTE | 2020-12-19 08:28 | PN.OBGYN_ITS ---
Subjective Subjective: Patient doing well without complaints. Tolerating PO. Ambulating and voiding without difficulty. Feeding well. Denies chest pain, shortness of breath, calf pain/swelling, fevers, chills, lightheadedness. Objective Data Objective Data Vital Signs: Vital Signs Temp Pulse Resp BP Pulse Ox 98.3 F 101 H 18 115/53 L 98 12/19/20 08:17 12/19/20 08:17 12/19/20 08:17 12/19/20 08:17 12/19/20 08:17 Oxygen Delivery Method Room Air Weight: 218 lb 2 oz Body Mass Index (BMI) 35.2 Intake & Output: Intake and Output for Last 24 Hours 12/17/20 12/18/20 12/19/20 23:59 23:59 23:59 Intake Total 7040.10 / 7040.10 Output Total 6007 / 6007 Balance 1033.10 / 1033.10 Lab / Micro Data Result Diagrams: 12/19/20 04:15 Labs: Laboratory Results - last 24 hr 12/17/20 12/17/20 12/18/20 19:40 19:40 08:35 WBC RBC Hgb Hct MCV MCH MCHC RDW Std Deviation RDW Coeff of Ibeth Plt Count MPV Immature Gran % (Auto) Neut % (Auto) Lymph % (Auto) [place] % (Auto) Eos % (Auto) Baso % (Auto) Absolute Neuts (auto) Absolute Lymphs (auto) Nucleated RBC % PT 12.0 INR 0.9 APTT 28.3 Fibrinogen 279 Crossmatch See Detail See Detail 12/18/20 12/18/20 12/18/20 08:35 10:30 10:30 WBC 10.6 11.6 H RBC 3.81 L 2.82 L Hgb 12.0 8.9 L Hct 35.8 L 27.4 L MCV 94.0 97.2 MCH 31.5 31.6 MCHC 33.5 D 32.5 RDW Std Deviation 48.0 H 49.4 H RDW Coeff of Ibeth 14.5 14.5 Plt Count 262 215 MPV 11.1 11.1 Immature Gran % (Auto) 1.100 H Neut % (Auto) 74.1 H Lymph % (Auto) 18.9 L [place] % (Auto) 5.5 Eos % (Auto) 0.1 Baso % (Auto) 0.3 Absolute Neuts (auto) 7.9 H Absolute Lymphs (auto) 2.01 Nucleated RBC % 0 PT 13.1 INR 1.1 APTT 29.7 Fibrinogen 214 Crossmatch 12/18/20 12/18/20 12/18/20 13:40 13:40 18:30 WBC 15.4 H 16.3 H RBC 2.52 L 2.73 L Hgb 7.9 L 8.7 L Hct 24.3 L 25.7 L MCV 96.4 94.1 MCH 31.3 31.9 MCHC 32.5 33.9 RDW Std Deviation 50.3 H 46.0 H RDW Coeff of Ibeth 14.8 H 14.2 Plt Count 237 234 MPV 10.7 11.0 Immature Gran % (Auto) Neut % (Auto) Lymph % (Auto) [place] % (Auto) Eos % (Auto) Baso % (Auto) Absolute Neuts (auto) Absolute Lymphs (auto) Nucleated RBC % PT INR APTT Fibrinogen 272 Crossmatch 12/18/20 12/18/20 12/19/20 18:30 18:30 04:15 WBC 13.5 H RBC 2.38 L Hgb 7.8 L Hct 22.9 L MCV 96.2 MCH 32.8 H MCHC 34.1 RDW Std Deviation 47.6 H RDW Coeff of Ibeth 15.9 H Plt Count 271 MPV 10.7 Immature Gran % (Auto) 1.000 H Neut % (Auto) 70.9 H Lymph % (Auto) 22.0 [place] % (Auto) 5.8 Eos % (Auto) 0.1 Baso % (Auto) 0.2 Absolute Neuts (auto) 9.6 H Absolute Lymphs (auto) 2.97 Nucleated RBC % 0 PT 13.1 INR 1.1 APTT 27.3 Fibrinogen 301 Crossmatch Physical Exam Const alert, oriented x3, no apparent distress, average body habitus, healthy appearing and well nourished HEENT normocephalic Head and Scalp: atraumatic Eyes PERRL and EOMs intact bilaterally Neck full ROM Lymph Lymphatic: no lymphadenopathy noted Resp normal respiratory effort, no retractions and no use of accessory muscles Cardio regular rate GI soft to palpation, non-tender and non-distended Palpation: other Other Details: fundus firm Extremity normal to inspection and no clubbing, cyanosis or edema Skin no rashes or lesions noted Neuro no focal motor deficits and no sensory deficits noted Psych mental status grossly normal, affect normal and speech normal Assessment & Plan Assessment/Plan (1) (spontaneous vaginal delivery): Status: Acute Code(s): O80 - Encounter for full-term uncomplicated delivery Plan: s/p PPD # 1 1. routine post delivery care 2. breast feeding- support given 3. rh positive 4. rubella immune (2) hemorrhage: Status: Acute Code(s): O72.1 - Other immediate hemorrhage Qualifiers: hemorrhage type: other immediate Qualified Code(s): O72.1 - Other immediate hemorrhage Plan: s/p 2u PRBCs, 1u FFP, and 1u cryo Fibrinogen normalized Bleeding minimal Hb 7.8 this am Feeling well Discussed will repeat CBC in 12 hours and if remains stable and patient remains asymptomatic, can consider DC to home this evening
[2020-12-19] MEDS: 0.9% Saline Lock 10 ML Syringe IV (09:18)
--- NOTE | 2020-12-19 16:00 | CASEMGMT ---
Social Work Assessment Labor and Delivery Unit Patient Address: [address] [place] [address] Phone number: [phone] Date of Referral: 12.19.2020 Time of Referral: 500 Referred By: Dr. Villasenor Date of Intervention: 12.19.2020 Time of Intervention: [id number] Reason for Referral: Maternal mental health history - PPD, bipolar, and anxiety History obtained from: medical records and mother of baby (MOB) Rocio Faustin Household composition: MOB, father of baby (FOB) Ashu Faustin, and older child Salima. Home situation is reported as safe and adequate. Patient's parent/guardian status: ADELINE is a a 24 year old female, to the FOB for the last 3 years; together since they were 16 years old. MOB and FOB now share 2 children: Salima (born 03[birth year]01-2019) and baby Deep Tena (born 12.18.2019). MOB denies any form of abuse, violence, control, or intimidation in the relationship with the FOB. Medical History: MOB is G2, P1 to 2 after delivering Deep. care started in the first trimester. MOB with history of Clomid. After delivery of Deep, Maternal hemorrhage x2. Deep delivered at 38 weeks gestation, Apgars 5 and 7 at 1 and 5 minute of life. Deep transferred to [facility] for issues related to respiratory distress, and then transferred to [facility] main [place]. Educational Status: ADELINE has high school education, no issues with reading, writing, or learning comprehension. 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 Supplies: MOB reports to have needed supplies to care for the baby including safe sleep space, car seat, clothing, diapers, wipes. MOB is breast feeding the baby. Childcare/Caregiver(s): MOB is primary caregiver, with help from FOB when FOB is home. Transportation: No issues. Programs/Agencies Involved: Active with [employer] and [employer]. Denies any other agency involved. Plans on pediatric follow up with Roberto Carlos Starr at [facility] office. Children Services/Legal Issues: MOB denies any current or past history. Behavioral Health Issues: Mental Health History: Maternal history of anxiety, depression, and Bipolar disorder. MOB endorses history of self injury as a teen, prior to marriage. Endorses anxiety soon after Salima was born, lasting for a few months, then getting better. Reports that close to a year developed depression. Currently treated with Prozac, 80 mg, and MOB reports this seem to be working pretty well. Current [place] screen is a score of 7, with positive scores relating to anxiety based questions. MOB endorses some suicidal thoughts at the beginning of the with Deep. No triggering event reported, more of a general feeling of being overwhelmed. MOB reports there was one episode during the first trimester that ADELINE did contemplate suicide by driving her car recklessly. MOB reports she was driving while thinking of this method and contemplated just driving past the house to put her method to action, and what stopped ADELINE from continuing on with the thoughts was seeing the light on at her house. MOB reports the light stopped ADELINE, knowing her family was there, then decided to turn around and go home. MOB reports she told her about this, who helped MOB to talk with the OBGYN. MOB reports was referred to the [facility] program, but did not follow through. Endorses worry about money and insurance as a reason why did not follow through. MOB reports thoughts of suicide resolved after the first trimester, denies any thoughts of dying in the last weeks, or since delivery. Besides the self interrupted episode at the beginning of , the MOB endorses history of self injury as a teen as the only other history of self harm. MOB denies any intent to harm self at this time, reports reason to live as her children, as well as realizing more and more that MOB does offer something to the marriage/that has strengths that the FOB relies on. Coping: MOB reports talking, taking breaks, accepting help from others, and positive self talk as things MOB can to do help when feeling overwhelmed. Plan for safety: MOB verbally agrees to seek out help and support should thoughts of harm to self or other arise. MOB agrees to talk to FOB and to reach out to OBGYN for guidance, as well as voiced that may consider the [facility] program (if still has insurance). Substance Use History: Denies history. Family History: Not discussed. Drug Screens: Maternal drug screen negative on 05.21.2020. Family/Social Stressors: MOB with positive COVID diagnosis in the last 2 weeks. MOB's mother and stepfather now have this and unable to watch MOB's daughter, though MOB's in-laws are assuming care and MOB reports to be okay with this new situation. ADELINE's paternal grandfather on Thursday (12-16-2020). Baby Deep is now at [facility] and MOB had only about 5 minutes to hold the baby before transfer. hemorrhage after delivering Deep. Current hospitalization is the first time that ADELINE has been away from her daughter for any length of time. Support Systems: MOB reports to feel she has a good support system from FOB, MOB's mom, a female friend/cousin named Huan, and a few other female friends. Depression/Shaken Baby/Safe Sleeping: Information provided on all topics. ASSESSMENT: Met with MOB in room, introducing to self and social work role. 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 MOB talkative, engaged in conversation, and appearing receptive to discussion as evidenced by MOB's engagement/asking questions/and giving feedback. MOB tearful intermittently throughout conversation. Held good eye contact. Mood anxious, affect appropriate to content being discussed. MOB voiced desire to be discharged from [facility] so that [facility] can go be with her baby. Reports plan to stay on antidepressant medications in the period, as well as willingness to let support system know if MOB's emotional health starts to take a turn downwards or becomes distressing. MOB voices realization that it is okay to ask for and accept help, that this was something MOB struggled with after Salima, but now knows it is important to accept support. MOB reports to have needed supplies to care for the baby, and will talk with support system on having someone help MOB at home when Deep is discharged (as FOKarrie may need to return to work). Educated MOB to mood adn anxiety disorders, risk for this again, and importance of seeking out help. MOB accepted packet of information on said topic, which includes local, national, and online supports/resources. [facility] resource packet also offered to MOB in case the need arises. PLAN: MOB to discharge today, with plan to go to [place] to seek baby. Resources in place. Plans to stay on antidepressant medication. No other services requested or indicated. -VERONIKA Winn, LORNE
[2020-12-19 17:16] LABS: Basophil# 0.02 X10^3/uL; Basophil% 0.2 % (0-1); Eosinophil# 0.04 X10^3/uL; Eosinophils% 0.4 % (0-5); Hematocrit 22.1 % (37-47); Hemoglobin 7.4 g/dL (12.0-15.0); Mean Corp Hgb Conc 33.5 g/dL (32-36); Mean Corpuscular Hgb 31.6 pg (27.0-32.0); Mean Corpuscular Volume 94.4 fL (81-99); Mean Platelet Vol. 10.9 fl (6.2-12.0); Monocyte# 0.77 X10^3/uL; Monocyte% 6.9 % (0-10); NRBC Flagged by Analyzer 0.4 % (0-5); Neutrophil # 7.01 X10^3/uL (2.7-7.7); Neutrophil % 63.2 % (47-70); Platelet Count 283 K/mm3 (150-450); RBC Distribution Width CV 15.2 % (11.6-14.6); RBC Distribution Width SD 49.2 fl (35.1-43.9); Red Blood Count 2.34 M/mm3 (4.2-5.4); White Blood Count 11.1 K/mm3 (4.4-11.0)
--- NOTE | 2020-12-19 17:37 | PCM.PN.BLA ---
Progress Note Vital signs remain stable. Hb stable (7.8 this am and 7.4 this pm). BPs mild range, but none >150/100. Patient feeling well. Will discharge to home in stable condition at this time.
== END 2020-12-19 18:10 | disposition home or self-care (01) | DRG 542 ==
PROVIDERS: Obstetrics & Gynecology; Admitting Provider Obstetrics & Gynecology; PCP Internal Medicine; Visit Provider Obstetrics & Gynecology
DX: O34.219 Maternal care for unspecified type scar from previous cesarean delivery (principal); O10.92 Unspecified pre-existing hypertension complicating childbirth; O69.82X0 Labor and delivery complicated by other cord entanglement, without compression, not applicable or unspecified; O99.344 Other mental disorders complicating childbirth; F31.70 Bipolar disorder, currently in remission, most recent episode unspecified; F41.9 Anxiety disorder, unspecified; O99.214 Obesity complicating childbirth; E66.9 Obesity, unspecified; O72.1 Other immediate postpartum hemorrhage; Z3A.38 38 weeks gestation of pregnancy; Z37.0 Single live birth; Z79.82 Long term (current) use of aspirin; Z92.29 Personal history of other drug therapy; Z86.16 Personal history of COVID-19
CPT/HCPCS: 59025; 59050; 76815; 85025; 85027; 85384; 85610; 85730; 86850; 86900; 86901; 86920; 86927; 86965; 99218; J7030; J7120; P9012; P9016; A4216; G0378; J2405; P9017

== ENCOUNTER 2022-06-11 16:00 | Outpatient (RCR) | payer MEDICAID, SELFPAY ==
--- NOTE | 2022-05-12 13:33 | HP.PTEVAL ---
Patient's Visit Information LAURA JIMENEZ MENG is a 26 year old F referred to Physical Therapy by LIBERTY Lindsey with a diagnosis of Lateral Epicondylitis. Date of Evaluation: 05/12/22 Physical Therapist: Ning Fuentes DPT - Visit Plan Frequency: 2x /Week Duration: 4 Weeks Plan: Manual, Modalities, Eccentrics- follow OT phases. HEP: Phase 1 Epicondylitis from OT book-Massage to area, education and triceps stretch - Subjective Patient reports that she thinks she has tennis elbow with nerve damage-insidious onset- progressively worse in the last few months. Some days she can't even lift her arm above 90 degrees but other days its better. She has nursed both kids on the right side and can't move them and feels that is what made it worse. She is not still nursing. She doesn't feel like its gotten better since she stopped. Pain is located along the elbow and tingles down. She has not feeling in her fingers and the palms of her hands. The pain is there all the time but the intensity comes and goes. Worst: 9/10 Agg: holding the kids, carrying bags. Best: 3/10 Eases: elbow brace. Today is a good day. Describes the pain as dull and achy but normally sharp and shooting pains. N/T comes and goes- whole hand. Sleep: disturbed- hard to get comfortable and wakes her up. Belly sleeper. Sometimes its worse in the AM. She wears the brace every day intermittently. No x-rays or MRI. 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 No HO, blurred vision or dizziness. No exercises from the MD. PMHx: none Meds: - Objective Posture: FH, RS- can correct but does not maintain. Gait: no deviation noted good arm swing and trunk rotation. Palpation: tender along lateral epicondyle and down the forearm. ROM: WFL put reports pain with supination/pronation and full forward flexion of the shoulder. Strength: Scap: fair minus, Shoulder: 4+/5 with pain in testing, Elbow: 4-/5 with pain in testing, Professor Of Apologetics: Left: 60 Right: 20 with arm in neutral- arm extended Left: 60 Right: 20 all with pain, Tripod Grasp: 5 with pain - Balance/Special Test Scores Quick DASH Score: 63.6350 - Goals Goal 1:: Patient will be I with HEP and progression Goal Time Frame: 4-6 Weeks Goal 2:: Patient will demo full AROM without pain Goal Time Frame: 4-6 Weeks Goal 3:: Patient will brass roller without pain Goal Time Frame: 4-6 Weeks Goal 4:: Patient will report 80% improvement Goal Time Frame: 4-6 Weeks - Rehabilitation Potential Physical Therapy Diagnosis: Patient presents with hypomobility- she has decreased painfree ROM, scapular and UE strength/stabilization and muscular endurance leading to increased pain with ADL's Rehabilitation Potential: Good - Anticipated Interventions Patient/Client Instruction: Educate patient on: Benefits of Fitness Program Therapeutic Exercise to Include: Strength training, Body mechanics, Postural training, Flexibilty training, Dynamic Lumbar Stabilization, Scapular Strength/Stabilization For the Purpose of:: To improve muscle performance and motor function Manual Therapy Techniques to Include: Mobilization, Functional dry needling, Soft tissue mobilization TENS: Yes Cryotherapy (ice pack, ice massage): Yes Thermo therapy (hot pack): Yes Ultrasound (thermal/non thermal): Yes Thank you for the opportunity to evaluate your patient. For Medicare and Medicare HMO plans, please review the plan of care and approve it. It will need to be FAXED BACK to us at [phone] for Medicare purposes. For Medicare only, by signing this I certify the plan of care. Please let me know if there are questions or concerns regarding this plan of care. Physician Signature: Date:
--- NOTE | 2022-07-24 07:45 | HP.PT.NRP ---
LAURA JIMENEZ MENG was seen in my office for initial evaluation on 05/12/22. The following Plan of Care was established for this patient: Initial Frequency: 2x /Week Initial Duration: 4 Weeks Patient/Client Instruction: Educate patient on: Benefits of Fitness Program Therapeutic Exercise to Include: Strength training, Body mechanics, Postural training, Flexibilty training, Dynamic Lumbar Stabilization, Scapular Strength/Stabilization For the Purpose of:: To improve muscle performance and motor function Manual Therapy Techniques to Include: Mobilization, Functional dry needling, Soft tissue mobilization TENS: Yes Cryotherapy (ice pack, ice massage): Yes Thermo therapy (hot pack): Yes Ultrasound (thermal/non thermal): Yes This patient was last seen in our office . Pertinent comments regarding their Physical therapy will appear below: Patient has not attended physical therapy in over 30 days- appropriate to be discharged and return to the MD as needed. At this point I will be discontinuing this patient from physical therapy. I would be happy to see this patient again in the future if found appropriate by the physician. Thank you! Ning Fuentes DPT Balance/Gait/Functional tests - Balance/Special Test Scores Quick DASH Score: 63.6352
== END 2022-06-11 19:00 | disposition home or self-care (01) ==
LOC: PT 16:00
PROVIDERS: PCP Internal Medicine; Referring Provider Physician Assistant; Visit Provider Physician Assistant
DX: M77.10 Lateral epicondylitis, unspecified elbow (principal)
CPT/HCPCS: 97035; 97110; 97140; 97161

== ENCOUNTER → 2022-06-19 | Outpatient (CLI) | payer MEDICAID, SELFPAY ==
[2022-06-19 11:32] LABS: hCG Titer Quant., Serum < 1 mIU/mL (1-3)
== END | disposition home or self-care (01) ==
LOC: LAB 09:12
PROVIDERS: PCP Internal Medicine; Referring Provider Obstetrics & Gynecology; Visit Provider Obstetrics & Gynecology
DX: N92.0 Excessive and frequent menstruation with regular cycle (principal)
CPT/HCPCS: 36415; 84702

== ENCOUNTER → 2022-09-22 | Outpatient (CLI) | payer MEDICAID, SELFPAY ==
[2022-09-22 14:30] VITALS: BP 150/73; PULSE 91; RESP 16; TEMP 36.3; O2SAT 100
[2022-09-22] MEDS: Dextrose 5%-Lactated Ringers 1,000 ML 999 ML IV (14:32)
[2022-09-22] MEDS: Ondansetron 4 MG/2 ML Vial IV (14:32)
[2022-09-22] MEDS: 0.9% NaCl Peripheral Flush Adult/Peds IV (14:32)
[2022-09-22] MEDS: proMETHazine 25 MG/ML Syringe 12.5 MG IM (15:42)
[2022-09-22 15:47] VITALS: BP 129/66; PULSE 79
== END | disposition home or self-care (01) ==
LOC: MEDOUTP 13:56
PROVIDERS: PCP Internal Medicine; Referring Provider Registered Nurse; Visit Provider Registered Nurse
DX: E86.0 Dehydration (principal)
CPT/HCPCS: 96365; 96375; 96372; A4216; J2405

== ENCOUNTER → 2022-10-01 | Outpatient (CLI) | payer MEDICAID, SELFPAY ==
[2022-10-01] MEDS: 0.9% NaCl Peripheral Flush Adult/Peds IV (14:07)
[2022-10-01] MEDS: Dextrose 5%-Lactated Ringers 1,000 ML 999 ML IV (14:10)
[2022-10-01] MEDS: Ondansetron 4 MG/2 ML Vial IV (14:12)
[2022-10-01 14:16] VITALS: BP 114/51; PULSE 96; RESP 16; TEMP 36.6; O2SAT 99
[2022-10-01 15:18] VITALS: BP 131/63; PULSE 104; RESP 16; TEMP 36.6
[2022-10-06 06:07] LABS: Chlamydia By Nucleic Acid AMP Negative (Negative)
[2022-10-06 20:19] LABS: Gonococcus By Nucleic Acid AMP Negative (Negative)
[2022-10-10 19:14] LABS: HPV Reflexed? NOT INDICATED
== END | disposition home or self-care (01) ==
PROVIDERS: PCP Internal Medicine; Referring Provider Obstetrics & Gynecology; Visit Provider Obstetrics & Gynecology
DX: O99.280 Endocrine, nutritional and metabolic diseases complicating pregnancy, unspecified trimester (principal); Z3A.00 Weeks of gestation of pregnancy not specified; Z12.4 Encounter for screening for malignant neoplasm of cervix
CPT/HCPCS: 96374; 96361; 87086; 87491; 87591; 88175; A4216; G0145; J2405

== ENCOUNTER 2022-10-03 20:45 | Emergency (ER) | payer MEDICAID, SELFPAY ==
[2022-10-03 20:46] VITALS: BP 135/92; PULSE 102; RESP 18; TEMP 35.6; BMI 37.3
--- NOTE | 2022-10-03 21:26 | EX.ED.DYSGE1 ---
HPI History of Present Illness Chief Complaint: Nausea/Vomiting Narrative Narrative: At a [id number] female, G4, P2 meetly 9 weeks gestation presents with reported hematemesis. She has hyperemesis gravidarum affecting this . She was started on Zofran which she last took at around 4 PM, over 5 hours ago, and last evening she was started on prochlorperazine. She became concerned because while she has her hyperemesis, she has vomited multiple times today. Approximately 2 hours ago she vomited what she thought were small blood clots. She denies any other bleeding diathesis, no blood in her stool. She does not take any blood thinners. She denies any vaginal bleeding. She presents because of the small blood streaks/clots in her last emesis. PFSH PFS Medical History Chronic hypertension affecting Depression hemorrhage (spontaneous vaginal delivery) Home Medications vitamin#30 30 mg iron-10 mg iron-folic acid 1 mg-omg3 capsule 1 cap PO DAILY Check with primary doctor 09/02/18 [History Last Taken 12/09/20] ondansetron 4 mg disintegrating tablet 4 mg PO Q8H #90 tabs 10/02/22 [Rx Last Taken Unknown] prochlorperazine maleate 10 mg tablet (Compazine) 10 mg PO Q8H PRN nausea and vomiting #90 tabs 10/02/22 [Rx Last Taken Unknown] Allergy/AdvReac Type Severity Reaction Status Date / Time prednisone Allergy Mild Other Verified 10/01/22 16:14 Family History Unknown Diabetes Grandmother Breast cancer Aunt Breast cancer, Onset Age: 35 Surgical History History of hysterosalpingogram Social History adopted: No household members: spouse and children number of children: 2 current occupational status: unemployed current occupation: [employer] current occupational exposures/hazards: No pets and animals: Yes (not managing litterbox) pets and animals: cat(s) and dog(s) history of recent travel: No sexually active: Yes Smoking Status: Never smoker alcohol intake: never substance use type: does not use well-balanced diet: daily or most days caffeine: No eating out: rarely or never during the past year weight has: remained stable what type of physical activity do you participate in: none nae/christianity: Christianity seatbelt use: always do you feel safe at home: Yes additional social history: [place]- HVAC ROS ROS ED ROS Narrative Constitutional: No fever, no chills. HEENT: No sore throat. No neck pain. No loss of vision. No rhinorrhea. Cardiovascular: No chest pain. No palpitations. No pedal edema. Respiratory: No cough, no shortness of breath. Abdominal: No abdominal pain. Positive nausea. Positive vomiting, bilious with small blood clots/streaks. No louise hematemesis. No bloody bowel movements. Genitourinary: No dysuria. No hematuria. Musculoskeletal: No myalgias. No arthralgias. Neurologic: No headaches. No dizziness. No lightheadedness. Skin: No rash. No change in color. Psychiatric: No depression. No anxiety. EXAM Physical Exam Narrative Exam Narrative: Afebrile. Vital signs noted. Nontoxic-appearing. HEENT: Normocephalic. Atraumatic. PERRL, EOMI. Neck soft and supple. No point tenderness or step off. Cardiovascular: Regular rate and rhythm. Intermittent tachycardia. No murmurs, rubs, or gallops appreciated. Respiratory: No tachypnea. Lungs clear to auscultation bilaterally. Gastrointestinal: Abdomen soft, nontender, with normoactive bowel sounds. No rebound or guarding. Neurological: Awake. Alert. Nonfocal, nonlateralizing. Skin: No rash. Normal color. No pallor. Musculoskeletal: No pedal edema. Full range of motion extremities. Const Vital Signs: 10/03/22 20:46 10/03/22 20:46 Temperature 96.0 F L 96.0 F L Temperature Source Temporal Temporal Pulse Rate 102 H 102 H Respiratory Rate 18 18 Blood Pressure 135/92 H 135/92 H Blood Pressure Mean 106 106 MDM MDM MDM Narrative Medical decision making narrative: Feel the patient probably has more of a Patrizia-Cho tear from her hyperemesis. As she is still vomiting bilious material and no gross bright red blood, I do not feel that NG tube needs insertion. I discussed this with the patient and her and they agree. She will be bolused normal saline 1 L intravenously and administered Zofran 4 mg intravenously for her vomiting. Additionally, I will check a CBC along with a BMP to check her electrolytes. I reviewed her CBC which shows normal white count of 10.0, hemoglobin normal at 12.7, she has not had significant blood loss. BMP shows potassium slightly low at 3.4, just below normal range. Glucose appropriately elevated at 100 with anion gap of 7. She has normal BUN of 7, with a creatinine of 0.70. At this point in time, upon repeat examination after IV fluid bolus and Zofran, she has not had any hematemesis here and states she feels improved. GALO can be discharged safely home with follow-up. Return instructions to the emergency department were reviewed. Disposition is discharged home in stable condition. Lab Data Attestation: I reviewed the patient's lab results. Labs: Laboratory Results - last 24 hr 10/03/22 10/03/22 21:49 21:49 WBC 10.0 RBC 4.25 Hgb 12.7 Hct 36.8 L MCV 86.6 MCH 29.9 MCHC 34.5 RDW Std Deviation 38.1 RDW Coeff of Ibeth 11.9 Plt Count 414 MPV 9.4 Immature Gran % (Auto) 0.200 Neut % (Auto) 63.2 Lymph % (Auto) 28.4 [place] % (Auto) 6.4 Eos % (Auto) 1.4 Baso % (Auto) 0.4 Absolute Neuts (auto) 6.4 Absolute Lymphs (auto) 2.85 Nucleated RBC % 0 Sodium 139 Potassium 3.4 L Chloride 107 Carbon Dioxide 25.0 Anion Gap 7 BUN 7 Creatinine 0.70 Estim Creat Clear Calc 114.01 Est GFR (MDRD) Af Amer 130 Est GFR (MDRD) Non-Af 107 BUN/Creatinine Ratio 10.0 Glucose 100 Calcium 9.1 Discharge Plan Triage Chief Complaint: Nausea/Vomiting ED Provider: Mac Porter Dx/Rx/DC Orders Clinical Impression: Hyperemesis gravidarum, Patrizia-Cho tear Instructions: Patrizia-Cho Tear, ED Hyperemesis Gravidarum Prescriptions: No Action vitamin#30 30 mg iron-10 mg iron-folic acid 1 mg-omg3 capsule 30 mg iron-10 mg iron-1 mg capsule 1 cap PO DAILY prochlorperazine maleate [Compazine] 10 mg tablet 10 mg PO Q8H PRN (Reason: nausea and vomiting) Qty: 90 3RF ondansetron 4 mg tablet,disintegrating 4 mg PO Q8H Qty: 90 4RF Primary Care Provider: Marco Romano Referrals: Marco Roamno MD [Primary Care Provider] - Destini Villasenor MD [Med Staff - Active Staff] - 3-5 Days Disposition Disposition: Home, Self Care
[2022-10-03] MEDS: 0.9% Normal Saline 1,000 ML 1000 ML IV (21:46)
[2022-10-03] MEDS: Ondansetron 4 MG/2 ML Vial IV (21:46)
[2022-10-03 22:03] LABS: Absolute Lymphocyte Count 2.85 X10^3/uL (0.83-4.51); Absolute Neutrophil Count 6.4 X10^3/uL (2.0-7.7); Basophil# 0.04 X10^3/uL; Basophil% 0.4 % (0-1); Eosinophil# 0.14 X10^3/uL; Eosinophils% 1.4 % (0-5); Hematocrit 36.8 % (37-47); Hemoglobin 12.7 g/dL (12.0-15.0); Lymphocyte # 2.85 X10^3/ul (0.83-4.51); Lymphocyte % 28.4 % (19-41); Mean Corp Hgb Conc 34.5 g/dL (32-36); Mean Corpuscular Hgb 29.9 pg (27.0-32.0); Mean Corpuscular Volume 86.6 fL (81-99); Mean Platelet Vol. 9.4 fl (6.2-12.0); Monocyte# 0.64 X10^3/uL; Monocyte% 6.4 % (0-10); NRBC Flagged by Analyzer 0 % (0-5); Neutrophil # 6.35 X10^3/uL (2.7-7.7); Neutrophil % 63.2 % (47-70); Platelet Count 414 K/mm3 (150-450); RBC Distribution Width CV 11.9 % (11.6-14.6); RBC Distribution Width SD 38.1 fl (35.1-43.9); Red Blood Count 4.25 M/mm3 (4.2-5.4)
[2022-10-03 22:24] LABS: Anion Gap 7 (5-15); BUN 7 mg/dL (7-18); Calcium,Total 9.1 mg/dL (8.5-10.1); Chloride 107 mmol/L (98-107); EST Glomerular Filtration Rate 107 mL/min (>60); Est Glom Filt Rate - Afr Amer 130 mL/min (>60); Estimated Creatinine Clearance 114.01 ml/min; Glucose 100 mg/dL (74-106); Potassium 3.4 mmol/L (3.5-5.1); Sodium Level 139 mmol/L (136-145)
[2022-10-03 22:34] VITALS: BP 138/74; PULSE 75; RESP 16; O2SAT 98
== END 2022-10-03 22:35 | disposition home or self-care (01) ==
PROVIDERS: Emergency Provider Emergency Medicine; PCP Internal Medicine; Visit Provider Emergency Medicine
DX: O99.611 Diseases of the digestive system complicating pregnancy, first trimester (principal); K22.6 Gastro-esophageal laceration-hemorrhage syndrome; O21.0 Mild hyperemesis gravidarum; Z3A.09 9 weeks gestation of pregnancy
CPT/HCPCS: 80048; 85025; 96361; 96374; 99283; J2405

== ENCOUNTER → 2022-10-06 | Outpatient (CLI) | payer MEDICAID, SELFPAY ==
[2022-10-06 14:07] VITALS: BP 142/72; PULSE 116; RESP 14; TEMP 36.2; O2SAT 97; BMI 36.3
[2022-10-06] MEDS: Dextrose 5%-Lactated Ringers 1,000 ML 999 ML IV (14:25)
[2022-10-06] MEDS: Ondansetron 4 MG/2 ML Vial IV (14:27)
[2022-10-06] MEDS: 0.9% NaCl Peripheral Flush Adult/Peds IV (14:27)
[2022-10-06] MEDS: proMETHazine 25 MG/ML Syringe 12.5 MG IM (15:27)
[2022-10-06 15:33] VITALS: BP 133/65; PULSE 88
== END | disposition home or self-care (01) ==
PROVIDERS: PCP Internal Medicine; Referring Provider Obstetrics & Gynecology; Visit Provider Obstetrics & Gynecology
DX: E86.0 Dehydration (principal)
CPT/HCPCS: 96365; 96375; 96372; A4216; J2405

== ENCOUNTER → 2022-10-10 | Outpatient (CLI) | payer MEDICAID, SELFPAY ==
[2022-10-10 13:04] VITALS: BP 126/81; PULSE 98; RESP 16; TEMP 36.2; O2SAT 97; BMI 36.3
[2022-10-10] MEDS: 0.9% NaCl Peripheral Flush Adult/Peds IV (13:11)
[2022-10-10] MEDS: Dextrose 5%-Lactated Ringers 1,000 ML 999 ML IV (13:11)
[2022-10-10] MEDS: Ondansetron 4 MG/2 ML Vial IV (13:12)
== END | disposition home or self-care (01) ==
PROVIDERS: PCP Internal Medicine; Referring Provider Obstetrics & Gynecology; Visit Provider Obstetrics & Gynecology
DX: E86.0 Dehydration (principal)
CPT/HCPCS: 96374; 96361; A4216; J2405

== ENCOUNTER → 2022-10-13 | Outpatient (CLI) | payer MEDICAID, SELFPAY ==
[2022-10-13 10:24] LABS: NATERA MAILED SPECIMEN
[2022-10-13 11:26] LABS: HIV - WCH Non-Reactive (Nonreactive); Hepatitis B Surface Antigen Non-Reactive (Nonreactive); Hepatitis C Antibody Non-Reactive (Nonreactive); Rubella IgG Reactive (Nonreactive); Syphilis Antibodies Non-reactive
== END | disposition home or self-care (01) ==
PROVIDERS: PCP Internal Medicine; Visit Provider Obstetrics & Gynecology
DX: Z34.90 Encounter for supervision of normal pregnancy, unspecified, unspecified trimester (principal); Z3A.00 Weeks of gestation of pregnancy not specified
CPT/HCPCS: 36415; 86703; 86762; 86780; 86803; 86850; 86900; 86901; 87340

== ENCOUNTER → 2022-10-22 | Outpatient (CLI) | payer MEDICAID, SELFPAY ==
[2022-10-22 13:28] VITALS: BP 139/66; PULSE 117; RESP 16; TEMP 36.2; O2SAT 97
[2022-10-22 13:30] VITALS: BMI 34.7
[2022-10-22] MEDS: 0.9% NaCl Peripheral Flush Adult/Peds IV (13:33)
[2022-10-22] MEDS: Dextrose 5%-Lactated Ringers 1,000 ML 999 ML IV (13:34)
[2022-10-22] MEDS: Ondansetron 4 MG/2 ML Vial IV (15:01)
[2022-10-22 15:24] VITALS: BP 135/67; PULSE 100; RESP 16; TEMP 36.4; O2SAT 98
== END | disposition home or self-care (01) ==
LOC: MEDOUTP 13:07
PROVIDERS: PCP Internal Medicine; Referring Provider Obstetrics & Gynecology; Visit Provider Obstetrics & Gynecology
DX: E86.0 Dehydration (principal)
CPT/HCPCS: 96365; 96375; A4216; J2405; J3490

== ENCOUNTER → 2022-12-19 | Outpatient (CLI) | payer MEDICAID, SELFPAY ==
--- NOTE | 2022-12-19 13:36 | US_ITS ---
STUDY: SECOND AND THIRD TRIMESTER OBSTETRICAL ULTRASOUND REASON FOR EXAM: Female, 27 years old anatomy LMP: August 01, 2022. TECHNIQUE: Transabdominal and Transvaginal TECHNICAL QUALITY: Adequate. PRIOR ULTRASOUND: None. FINDINGS: There is a single intrauterine fetus. The fetus is in a cephalic presentation. There is demonstrated cardiac activity with a heart rate of 140 bpm. There is a normal amniotic fluid volume. The largest amniotic fluid pocket measures 5.4 cm x 10.5 cm. The amniotic fluid index (CLAUS) is within normal limits. The placenta is posterior in location and is not low lying. There are Grade 1 placental changes. The cervix measures 3.7 cm in length. The bilateral adnexal regions are normal. BIOMETRY: BPD: 4.8 cm: 20 weeks, 4 days HC: 17.7 cm: 20 weeks, 1 days AC: 15 cm: 20 weeks, 2 days FL: 3.1 cm: 19 weeks, 5 days CI: 78% FL/BPD: 65% FL/HC: FL/AC: 21% HC/AC: 1.18 age by current US: 20 weeks, 1 days. BRANDYN by current US: May 07, 2023. Estimated weight: 331 grams, +/- 50 grams, 50 %. Age by LMP: 20 weeks, 0 days. BRANDYN by LMP: May 08, 2023. ANATOMY: Gender: Male Cranium: Normal lateral ventricles. Normal choroid plexus. Normal cerebellum. Normal cisterna magna. Normal face, nose and lips. Chest: Normal 4-chamber heart. Abdomen/Pelvis: Normal diaphragm. Normal stomach. Normal abdominal wall. Normal cord insertion. Normal 3 vessel cord. Normal kidneys. Normal bladder. Spine: Normal cervical spine. Normal thoracic spine. Normal lumbar spine. Normal sacrum. Extremities: Normal bilateral upper extremities. Normal bilateral lower extremities. IMPRESSION: Single live intrauterine gestation with a mean gestational age of 20 weeks and 1 day. Electronically Signed: Yassine Mendes MD at 8:58 EDT , STUDY: FIRST TRIMESTER OBSTETRICAL ULTRASOUND REASON FOR EXAM: Female, 27 years old . Cervical length. LMP: August 01, 2022. TECHNIQUE: Transvaginal TECHNICAL QUALITY: Adequate. PRIOR ULTRASOUND: None. FINDINGS: Cervical length measures 3.7 cm. US/OB Anatomy Scan IMPRESSION: Cervical length measures 3.7 cm. Electronically Signed: Yassine Mendes MD at 8:59 EDT ,
== END | disposition home or self-care (01) ==
PROVIDERS: PCP Internal Medicine; Referring Provider Obstetrics & Gynecology; Visit Provider Obstetrics & Gynecology
DX: O09.92 Supervision of high risk pregnancy, unspecified, second trimester (principal); Z3A.20 20 weeks gestation of pregnancy
CPT/HCPCS: 76805; 76817

== ENCOUNTER → 2023-01-30 | Outpatient (CLI) | payer MEDICAID, SELFPAY ==
[2023-01-30 15:23] LABS: Absolute Lymphocyte Count 1.86 X10^3/uL (0.83-4.51); Absolute Neutrophil Count 6.7 X10^3/uL (2.0-7.7); Basophil# 0.02 X10^3/uL; Basophil% 0.2 % (0-1); Eosinophil# 0.09 X10^3/uL; Hematocrit 33.6 % (37-47); Hemoglobin 11.1 g/dL (12.0-15.0); Lymphocyte # 1.86 X10^3/ul (0.83-4.51); Lymphocyte % 20.4 % (19-41); Mean Corpuscular Hgb 30.1 pg (27.0-32.0); Mean Corpuscular Volume 91.1 fL (81-99); Mean Platelet Vol. 9.4 fl (6.2-12.0); Monocyte# 0.48 X10^3/uL; Monocyte% 5.3 % (0-10); NRBC Flagged by Analyzer 0 % (0-5); Neutrophil # 6.65 X10^3/uL (2.7-7.7); Neutrophil % 72.8 % (47-70); Platelet Count 345 K/mm3 (150-450); RBC Distribution Width CV 13.2 % (11.6-14.6); RBC Distribution Width SD 43.8 fl (35.1-43.9); Red Blood Count 3.69 M/mm3 (4.2-5.4); White Blood Count 9.1 K/mm3 (4.4-11.0)
[2023-01-30 15:36] LABS: Glucose Challenge Gest 1H 50g 121 mg/dL (70-140)
== END | disposition home or self-care (01) ==
LOC: LAB 14:56
PROVIDERS: PCP Internal Medicine; Referring Provider Obstetrics & Gynecology; Visit Provider Obstetrics & Gynecology
DX: O99.210 Obesity complicating pregnancy, unspecified trimester (principal); Z3A.00 Weeks of gestation of pregnancy not specified
CPT/HCPCS: 36415; 82950; 85025

== ENCOUNTER → 2023-04-10 | Outpatient (CLI) | payer MEDICAID, SELFPAY | END | disposition home or self-care (01) | PROVIDERS: PCP Internal Medicine; Visit Provider Obstetrics & Gynecology | DX: Z34.90 Encounter for supervision of normal pregnancy, unspecified, unspecified trimester (principal) | CPT/HCPCS: 87081 ==

== ENCOUNTER 2023-04-12 10:15 | Outpatient (CLI) | payer MEDICAID, SELFPAY ==
[2023-04-12 10:27] VITALS: O2SAT 98
[2023-04-12 10:28] VITALS: BP 124/77; PULSE 120
[2023-04-12 10:33] VITALS: TEMP 36.6
[2023-04-12 10:41] VITALS: BMI 35.3
--- NOTE | 2023-04-12 11:09 | OB.TRI.PN ---
Progress Notes Date of Service: 04/12/23 Progress Note: Patient presents for triage evaluation secondary to contractions FHT: 140 Moderate variability reactive no decelerations category I tracing [place]: irregular Contractions Assessment and plan: threatened rpeterm labor Reactive NST, reassuring maternal and status patient discharged to home to follow-up as scheduled. See problem list details for additional plan information. Charges/Coding Procedures Urinary/Genital 52xxx-59xxx: 38205-83 non-stress test Interp
[2023-04-12 12:30] VITALS: BP 118/68; PULSE 90; PULSE 91; O2SAT 100
[2023-04-12 12:31] VITALS: TEMP 36.6
== END 2023-04-12 12:45 | disposition home or self-care (01) ==
LOC: WPOUT 10:17 → WP 10:21
PROVIDERS: PCP Internal Medicine; Visit Provider Obstetrics & Gynecology
DX: O47.9 False labor, unspecified (principal); Z79.899 Other long term (current) drug therapy; Z3A.00 Weeks of gestation of pregnancy not specified
CPT/HCPCS: 59025; 59050; 99221; G0378

== ENCOUNTER 2023-04-21 14:03 | Outpatient (CLI) | payer MEDICAID, SELFPAY ==
[2023-04-21 14:26] VITALS: BMI 35.6
[2023-04-21 14:30] VITALS: BP 128/72; PULSE 107; TEMP 36.6
[2023-04-21 16:54] LABS: Mucous, Urine 0 SEEN /hpf (<or=2+); Red Blood Cells-Urine 0 SEEN /hpf (0-5)
[2023-04-21 16:58] LABS: Color, Urine Yellow (Yellow); Glucose, Dipstick Normal (Normal); Ketone-Dipstick 5 mg/dl (Negative); Leukocyte Esterase-Dipstick 25 /ul (Negative); Nitrite-Dipstick Negative (Negative); Occult Blood-Urine Negative /ul (Negative); Protein-Dipstick Negative (Negative); Urine Bilirubin Dipstick Negative (Negative); Urine Clarity Sl. Cloudy (Clear); Urine Urobilinogen Normal (Normal)
[2023-04-21 17:41] LABS: Bacteria 2+ /hpf (None Seen); Squamous Epithelial Cells - UA 10-25 SEEN /hpf (5-10); White Blood Cells 0-5 SEEN /hpf (0-5)
--- NOTE | 2023-04-21 17:46 | US_ITS ---
EXAM: US RETROPERITONEAL LIMITED, RENAL CLINICAL INDICATION: R/O kidney stone -- LT BACK PAIN TECHNIQUE: Limited grayscale and color Doppler sonographic evaluation of the retroperitoneum was performed. COMPARISON: No relevant prior studies available. FINDINGS: RIGHT KIDNEY: Right kidney measures 11.1 cm in length. Moderate hydronephrosis. No shadowing calculus. No perinephric collection is demonstrated. LEFT KIDNEY: Left kidney measures 12.3 cm in length. Mild hydronephrosis. No shadowing calculus. No perinephric collection is demonstrated. BLADDER: Urinary bladder is normal. OTHER FINDINGS: Concurrent third trimester is noted. US/Kidney and Bladder IMPRESSION: Bilateral hydronephrosis more prominent on the right than left. Electronically Signed: Zheng Daly MD at 19:11 EDT ,
[2023-04-21] MEDS: Acetaminophen 500 MG Tablet 1000 MG PO (18:00)
[2023-04-21 19:14] VITALS: BP 135/64; PULSE 93
[2023-04-21 19:15] VITALS: PULSE 91; TEMP 36.3; O2SAT 99
--- NOTE | 2023-04-21 20:31 | OB.TRI.PN_ITS ---
Progress Notes Date of Service: 04/21/23 Progress Note: Patient presents for triage evaluation secondary to contractions and left sided back pain. FHT: 125 Moderate variability reactive no decelerations category I tracing [place]: Irregular Contractions Assessment and plan: IV hydration, negative UA and renal US, Reactive NST, reassuring maternal and status patient discharged to home to follow-up in office. See problem list details for additional plan information. Laboratory Studies: Laboratory Tests 04/21/23 Range/Units 16:40 Urine Color Yellow (Yellow) Urine Clarity Sl. Cloudy (Clear) Urine pH 6.0 (5.0 - 8.0) Ur Specific [place] 1.020 (1.002-1.030) Urine Protein Negative (Negative) mg/dl Urine Glucose (UA) Normal (Normal) mg/dl Urine Ketones 5 H (Negative) mg/dl Urine Occult Blood Negative (Negative) /ul Urine Nitrite Negative (Negative) Urine Bilirubin Negative (Negative) mg/dL Urine Urobilinogen Normal (Normal) mg/dl Ur Leukocyte Esterase 25 H (Negative) /ul Urine RBC 0 SEEN (0-5) /hpf Urine WBC 0-5 SEEN (0-5) /hpf Ur Squamous Epith Cells 10-25 SEEN (5-10) /hpf Urine Bacteria 2+ (None Seen) /hpf Urine Mucus 0 SEEN (<or=2+) /hpf Charges/Coding Multi Select Codes Visit Charges Office Visit/Consults: 58823 OV L3 Est Urinary/Genital Urinary/Genital CPT Codes: 80787-28 non-stress test Interp Assessment & Plan (1) Uterine contractions during : COMMENT: no cervical change, resolved with IV hydration PLAN: UA IV bolus no cervical change-D/C home (2) Acute pharyngitis, unspecified: (3) History of gestational hypertension: COMMENT: 1st . (4) Hx of hemorrhage, currently : COMMENT: had 2 unit PRBC's, 1 Unit FFP, 1 unit cryo (5) Supervision of high-risk : COMMENT: PRR , BRANDYN 05/08/23, boy Deep Mckeon, [place] (6) : QUALIFIERS: Weeks of gestation: 37 weeks Qualified Code(s): Z3A.37 - 37 weeks gestation of COMMENT: GBS neg, NIPT low risk declined carrier testing (7) UTI symptoms: COMMENT: urine culture, Pt did not get culture. Sx improved. (8) Anxiety and depression: COMMENT: severe PPD in past prozac increased 40mg Behavioral health consult SW involved in case Recommended counseling with Jarvis Willis (9) Bipolar disorder: QUALIFIERS: Active/Remission status: in full remission Most recent bipolar episode type: most recent episode unspecified type Qualified Code(s): F31.70 - Bipolar disorder, currently in remission, most recent episode unspecified COMMENT: no meds currently. (10) Back pain: PLAN: UA& renal US neg
== END 2023-04-21 20:10 | disposition home or self-care (01) ==
LOC: WPOUT 14:08 → WP 14:09
PROVIDERS: Advanced Practice Midwife; PCP Internal Medicine; Referring Provider Obstetrics & Gynecology; Visit Provider Obstetrics & Gynecology
DX: O47.1 False labor at or after 37 completed weeks of gestation (principal); F31.9 Bipolar disorder, unspecified; O99.513 Diseases of the respiratory system complicating pregnancy, third trimester; O99.343 Other mental disorders complicating pregnancy, third trimester; O99.891 Other specified diseases and conditions complicating pregnancy; J02.9 Acute pharyngitis, unspecified; F41.9 Anxiety disorder, unspecified; M54.9 Dorsalgia, unspecified; Z3A.37 37 weeks gestation of pregnancy; Z79.899 Other long term (current) drug therapy
CPT/HCPCS: 96365; J7120; 59025; 59050; 76770; 81001; 99221; G0378

== ENCOUNTER 2023-05-04 08:32 | Emergency (ER) | payer MEDICAID, SELFPAY ==
[2023-05-04 08:32] VITALS: BP 129/82; PULSE 113; RESP 18; TEMP 35.7; O2SAT 99
--- NOTE | 2023-05-04 09:15 | EDS_ITS ---
HPI History of Present Illness HPI Narrative: Patient presents with left lower leg pain that began today. Patient states she felt some pulling in her leg. Patient states she tried to stretch it. Patient states she felt something pop in her left calf. Patient describes her pain as burning and stabbing. Patient states nothing makes it better nothing makes it worse. Patient admits to some numbness and tingling down into her feet. Patient denies any weakness. Patient is approximately 39 weeks . Patient has been having some nausea and vomiting with the but denies any hematemesis or coffee-ground emesis. Chief Complaint: Lower Extremity Injury Informant: patient Onset/Context/Timing Onset: Today Context: Sudden Onset Timing: Continuous Quality of Pain: Burning and Stabbing Location: Left calf Worsened by: Nothing Relieved by: Nothing Associated Symptoms Associated Symptoms: Positive for Parasthesia; Negative for Weakness or Loss of [facility]ion [facility] History Acute pharyngitis, unspecified Chronic hypertension affecting Depression hemorrhage (spontaneous vaginal delivery) Home Medications vitamin#30 30 mg iron-10 mg iron-folic acid 1 mg-omg3 capsule 1 cap PO DAILY Check with primary doctor 09/02/18 [History Last Taken 04/20/23 20:00 1 cap] ondansetron 4 mg disintegrating tablet 4 mg PO Q8H #90 tabs 10/02/22 [Rx Last Taken 04/21/23 10:00 4 mg] prochlorperazine maleate 10 mg tablet (Compazine) 10 mg PO Q8H PRN nausea and vomiting #90 tabs 03/13/23 [Rx Last Taken 04/21/23 04:00 10 mg] fluoxetine 40 mg capsule See Rx Instructions .Route .COMPLEX #30 caps 04/03/23 [Rx Last Taken 04/20/23 20:00 40 mg] famotidine 20 mg tablet (Pepcid) 20 mg PO BID #60 tabs 04/17/23 [Rx Last Taken 04/20/23 18:00 20 mg] Allergy/AdvReac Type Severity Reaction Status Date / Time prednisone Allergy Intermediate Rash Verified 05/01/23 15:45 Family History Unknown Diabetes Grandmother Breast cancer Aunt Breast cancer, Onset Age: 35 Surgical History History of hysterosalpingogram Social History adopted: No household members: spouse and children number of children: 2 current occupational status: unemployed current occupation: [employer] current occupational exposures/hazards: No pets and animals: Yes (not managing litterbox) pets and animals: cat(s) and dog(s) history of recent travel: No sexually active: Yes Smoking Status: Never smoker alcohol intake: never substance use type: does not use well-balanced diet: daily or most days caffeine: No eating out: rarely or never during the past year weight has: remained stable what type of physical activity do you participate in: none nae/mandaen: [employer] seatbelt use: always do you feel safe at home: Yes additional social history: [place]- HVAC ROS ROS ED Constitutional Constitutional ED: Denies chills or fever(s) Eyes Eyes: Denies blurry vision or change in vision ENT ENT ED: Denies rhinorrhea or sore throat Cardiovascular Cardiovascular: Denies chest pain or palpitations Respiratory/Chest Respiratory/Chest: Denies cough or dyspnea Gastrointestinal Gastrointestinal: Reports nausea; Denies vomiting Genitourinary Genitourinary ED: Denies dysuria or hematuria Musculoskeletal Musculoskeletal: Denies back pain or neck pain Integumentary Denies abscess or rash Neurologic Neurologic: Denies headache(s) or weakness Allergic/Immunologic Allergic/Immunologic ED: Denies mouth swelling or urticaria EXAM Physical Exam Const Vital Signs: 05/04/23 08:32 Temperature 96.3 F L Temperature Source Temporal Pulse Rate 113 H Respiratory Rate 18 Blood Pressure 129/82 H Blood Pressure Mean 97 Pulse Ox 99 Oxygen Delivery Method Room Air Positive well nourished and well developed General Appearance ED: well developed and NAD HEENT Reports moist mucous membranes normocephalic and atraumatic Neck full ROM and supple Extremity Extremity Narrative: There is tenderness over the left calf. There is mild edema. There is no ecchymosis. There is no bony crepitance or step-off noted. Laureano test is negative. Achilles tendon is intact. General Extremety ED: Yes edema General Extremity: edema Neuro oriented x3, CN's II-XII intact bilaterally, moves all extremities and no sensory deficits noted Sensorium / Orientation: alert Motor Exam: strength 5/5 throughout Psych mental status grossly normal Skin no wounds MDM MDM MDM Narrative Medical decision making narrative: Differential diagnosis includes DVT and a muscle strain. Venous duplex of the left lower extremity will be obtained to assess for DVT. Radiography Diagnostic Testing: Venous duplex of the left lower extremity was obtained. There is no evidence of DVT. Treatment and Re-Evaluation Narrative: Patient was advised of her findings. Patient was advised that this most likely muscular strain. Patient was instructed to take Tylenol as needed for pain. Patient instructed use ice to the area. Patient was instructed to follow-up with her primary care physician in 5 to 7 days. Patient was instructed to follow-up with her PLASTIC SURGERY NURSE as scheduled. Patient understood and was agreeable to plan. All questions were answered. Discharge Plan Triage Chief Complaint: Lower Extremity Injury ED Provider: Damion Shelley Dx/Rx/DC Orders Clinical Impression: Strain of left calf muscle, Instructions: ED Muscle Strain, Extremity Prescriptions: No Action vitamin#30 30 mg iron-10 mg iron-folic acid 1 mg-omg3 capsule 30 mg iron-10 mg iron-1 mg capsule 1 cap PO DAILY ondansetron 4 mg tablet,disintegrating 4 mg PO Q8H Qty: 90 4RF prochlorperazine maleate [Compazine] 10 mg tablet 10 mg PO Q8H PRN (Reason: nausea and vomiting) Qty: 90 1RF famotidine [Pepcid] 20 mg tablet 20 mg PO BID Qty: 60 4RF fluoxetine 40 mg capsule See Rx Instructions .ROUTE .COMPLEX Qty: 30 12RF Dose Instruction: TAKE 1 CAPSULE BY MOUTH EVERY DAY Rx Instructions: TAKE 1 CAPSULE BY MOUTH EVERY DAY Primary Care Provider: Marco Romano Referrals: Marco Romano MD [Primary Care Provider] - 5-7 Days Disposition Disposition: Home, Self Care
--- NOTE | 2023-05-04 09:20 | VDLE_ITS ---
Reason For Study: LLE Pain RIGHT LEFT CFV is compressible, spontaneous, phasic, GSV is normal. competent and demonstrates normal CFV is compressible, spontaneous, phasic, augmentation. competent, and demonstrates normal Procedure augmentation. This is a venous duplex using B-mode, color FV is compressible, spontaneous, phasic, flow and spectral Doppler. competent and demonstrates normal Exam performed portable in ED. augmentation. The exam was diagnostic. POP V is compressible, spontaneous, phasic, A preliminary report was called and/or faxed competent and demonstrates normal to Dr. Shelley. augmentation. T/P Trunk is compressible. PTV is compressible. LT PerV is compressible. VL/Venous Duplex US, Unilateral Interpretation Summary Deep veins of the left lower extremity are patent and compressible segmentally. There is no evidence of left lower extremity deep vein thrombosis. The left great saphenous vein riley ears patent and compressible segmentally. Ordering Physician: Damion Shelley Referring Physician: Marco Romano Performed By: Fadi Hoffman RVT
== END 2023-05-04 11:14 | disposition home or self-care (01) ==
PROVIDERS: Emergency Provider Emergency Medicine; PCP Internal Medicine; Visit Provider Emergency Medicine
DX: O9A.213 Injury, poisoning and certain other consequences of external causes complicating pregnancy, third trimester (principal); S86.112A Strain of other muscle(s) and tendon(s) of posterior muscle group at lower leg level, left leg, initial encounter; Z3A.39 39 weeks gestation of pregnancy; X58.XXXA Exposure to other specified factors, initial encounter
CPT/HCPCS: 93971; 99282

== ENCOUNTER → 2023-05-08 | Outpatient (CLI) | payer MEDICAID, SELFPAY ==
[2023-05-08 17:13] LABS: Absolute Lymphocyte Count 1.85 X10^3/uL (0.83-4.51); Absolute Neutrophil Count 7.5 X10^3/uL (2.0-7.7); Basophil# 0.03 X10^3/uL; Basophil% 0.3 % (0-1); Eosinophil# 0.09 X10^3/uL; Eosinophils% 0.9 % (0-5); Hemoglobin 9.9 g/dL (12.0-15.0); Lymphocyte # 1.85 X10^3/ul (0.83-4.51); Mean Corp Hgb Conc 30.9 g/dL (32-36); Mean Corpuscular Hgb 27.3 pg (27.0-32.0); Mean Corpuscular Volume 88.2 fL (81-99); Mean Platelet Vol. 10.1 fl (6.2-12.0); Monocyte# 0.77 X10^3/uL; Monocyte% 7.5 % (0-10); NRBC Flagged by Analyzer 0 % (0-5); Neutrophil # 7.45 X10^3/uL (2.7-7.7); Neutrophil % 72.7 % (47-70); Platelet Count 377 K/mm3 (150-450); RBC Distribution Width CV 14.5 % (11.6-14.6); Red Blood Count 3.63 M/mm3 (4.2-5.4); White Blood Count 10.3 K/mm3 (4.4-11.0)
[2023-05-08 17:56] LABS: Protein, Urine (Random) 26.1 mg/dL (<11.9); Protein:Creat Ratio 81 mg/g CRE (0-200)
[2023-05-08 18:01] LABS: ALB/GLOB Ratio 0.7 RATIO (0.9-2.4); AST(SGOT) 14 U/L (15-37); Alanine Aminotransfer ALT/SGPT 16 U/L (13-56); Albumin, Serum 2.9 g/dL (3.2-5.0); Alkaline Phosphatase 207 U/L (45-117); Anion Gap 7 (5-15); BUN 9 mg/dL (7-18); BUN/Creat Ratio 14.4 RATIO (10-20); Calcium,Total 9.2 mg/dL (8.5-10.1); Chloride 108 mmol/L (98-107); Creatinine, Serum 0.62 mg/dL (0.55-1.02); EST Glomerular Filtration Rate 122 mL/min (>60); Est Glom Filt Rate - Afr Amer 148 mL/min (>60); Globulin 4.2 g/dL (2.2-4.2); Glucose 82 mg/dL (74-106); Potassium 3.7 mmol/L (3.5-5.1); Protein, Total 7.1 g/dL (6.4-8.2); Sodium Level 137 mmol/L (136-145)
[2023-05-08 18:09] LABS: hCG Titer Quant., Serum 2850 mIU/mL (1-3)
== END | disposition home or self-care (01) ==
LOC: LAB 16:08
PROVIDERS: PCP Internal Medicine; Referring Provider Obstetrics & Gynecology; Visit Provider Obstetrics & Gynecology
DX: O26.859 Spotting complicating pregnancy, unspecified trimester (principal); O12.10 Gestational proteinuria, unspecified trimester; O99.891 Other specified diseases and conditions complicating pregnancy; R39.9 Unspecified symptoms and signs involving the genitourinary system; Z3A.00 Weeks of gestation of pregnancy not specified
CPT/HCPCS: 36415; 80053; 82570; 84156; 84702; 85025

== ENCOUNTER 2023-05-09 17:10 | Outpatient (CLI) | payer MEDICAID, SELFPAY ==
[2023-05-09 17:27] VITALS: BMI 35.9
[2023-05-09 17:45] VITALS: TEMP 36.2
[2023-05-09 17:46] VITALS: BP 124/65; PULSE 111
[2023-05-09 18:01] LABS: ROM Internal Control Test YES-OK TO RESULT pt. (Internal QC); ROM Patient Test Negative (Negative); Record Kit Lot#, ROM+ K1409
--- NOTE | 2023-05-10 10:17 | OB.TRI.PN ---
Progress Notes Date of Service: 05/10/23 Progress Note: Patient presents for triage evaluation secondary to false labor FHT: 140 Moderate variability reactive no decelerations category I tracing [place]: irregular Contractions Assessment and plan: false labor no cervical change Reactive NST, reassuring maternal and status patient discharged to home to follow-up as scheduled. See problem list details for additional plan information. Laboratory Studies: Laboratory Tests 05/09/23 Range/Units 17:25 Vag Amniotic Fld Detect Negative (Negative) Charges/Coding Procedures Urinary/Genital 52xxx-59xxx: 30605-24 non-stress test Interp
== END 2023-05-09 19:15 | disposition home or self-care (01) ==
LOC: WPOUT 17:15 → WP 17:16
PROVIDERS: PCP Internal Medicine; Referring Provider Obstetrics & Gynecology; Visit Provider Obstetrics & Gynecology
DX: O47.9 False labor, unspecified (principal); Z79.899 Other long term (current) drug therapy; Z3A.00 Weeks of gestation of pregnancy not specified
CPT/HCPCS: 59025; 59050; 84112; 99221; G0378

== ENCOUNTER 2023-05-13 07:00 | Inpatient (IN) | payer MEDICAID, SELFPAY ==
[2023-05-13] VITALS (71 sets, daily range): BP systolic 99–138; BP diastolic 53–76; PULSE 68–115; RESP 16; TEMP 36.6–37.6; O2SAT 89–100; BMI 35.6
[2023-05-13] MEDS: Lactated Ringers 1,000 ML 50 ML IV (08:00)
[2023-05-13] MEDS: Oxytocin 15 Units/NS 250ml 15 UNITS/250 ML IV.SOLN 2 UNITS IV (08:32)
[2023-05-13 08:44] LABS: Absolute Lymphocyte Count 2.19 X10^3/uL (0.83-4.51); Absolute Neutrophil Count 5.9 X10^3/uL (2.0-7.7); Basophil# 0.03 X10^3/uL; Basophil% 0.3 % (0-1); Eosinophil# 0.12 X10^3/uL; Eosinophils% 1.4 % (0-5); Hematocrit 31.3 % (37-47); Hemoglobin 9.7 g/dL (12.0-15.0); Lymphocyte # 2.19 X10^3/ul (0.83-4.51); Mean Corpuscular Hgb 26.9 pg (27.0-32.0); Mean Corpuscular Volume 86.9 fL (81-99); Monocyte# 0.49 X10^3/uL; Monocyte% 5.6 % (0-10); NRBC Flagged by Analyzer 0 % (0-5); Neutrophil # 5.87 X10^3/uL (2.7-7.7); Neutrophil % 67.1 % (47-70); Platelet Count 366 K/mm3 (150-450); RBC Distribution Width CV 14.4 % (11.6-14.6); RBC Distribution Width SD 45.6 fl (35.1-43.9); White Blood Count 8.8 K/mm3 (4.4-11.0)
--- NOTE | 2023-05-13 09:06 | HP.PCM.OB_ITS ---
HPI - General General Date of Admission: 05/13/23 HPI Narrative LAURA VALENCIA, is a 27 F who presents at 40.5 with IOL for proteinuria. no s/sx of PEC. hx of PPH with second delivery. Maternal Data Information BRANDYN Calculator Estimated Delivery Date Method Current WG Current Estimate 05/08/23 LMP (Certain) 40w 5d Other Estimates 05/07/23 Ultrasound #2 40w 6d PFSH PFSH Medical History Acute pharyngitis, unspecified Chronic hypertension affecting Depression hemorrhage (spontaneous vaginal delivery) Home Medications vitamin#30 30 mg iron-10 mg iron-folic acid 1 mg-omg3 capsule 1 cap PO DAILY Check with primary doctor 09/02/18 [History Last Taken 05/08/23 21:00] ondansetron 4 mg disintegrating tablet 4 mg PO Q8H #90 tabs 10/02/22 [Rx Last Taken 05/09/23 09:00] prochlorperazine maleate 10 mg tablet (Compazine) 10 mg PO Q8H PRN nausea and vomiting #90 tabs 03/13/23 [Rx Last Taken 05/09/23 09:00] fluoxetine 40 mg capsule See Rx Instructions .Route .COMPLEX #30 caps 04/03/23 [Rx Last Taken 05/08/23 06:00] famotidine 20 mg tablet (Pepcid) 20 mg PO BID #60 tabs 04/17/23 [Rx Last Taken 05/08/23 20:00] dimenhydrinate 50 mg tablet (Driminate) mg 05/09/23 [History Last Taken 05/08/23 21:34] Allergy/AdvReac Type Severity Reaction Status Date / Time prednisone Allergy Intermediate Rash Verified 05/09/23 17:31 Family History Unknown Diabetes Grandmother Breast cancer Aunt Breast cancer, Onset Age: 35 Surgical History History of hysterosalpingogram Social History adopted: No household members: spouse and children number of children: 2 current occupational status: unemployed current occupation: [employer] current occupational exposures/hazards: No pets and animals: Yes (not managing litterbox) pets and animals: cat(s) and dog (s) history of recent travel: No sexually active: Yes Smoking Status: Never smoker alcohol intake: never substance use type: does not use well-balanced diet: daily or most days caffeine: No eating out: rarely or never during the past year weight has: remained stable what type of physical activity do you participate in: none nae/zoroastrian: Oriental Orthodox seatbelt use: always do you feel safe at home: Yes 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 Date Name GA/Weeks Outcome Route Bth Weight Gen Labor Lgth Anesthesia Del Locatn Provider FOB Unknown chem 7w 03/01/19 Lolimary janebrynnjone 38 live - full term 6lbs 10oz Fem ethan 24 hours epidural [facility] Jacklyn 12/18/20 Deep 38 live - full term 5lbs 14oz Male [facility] Delivery Date: 03/01/19 Last Updated by: Caridad Ponce Chronic Hypertension Delivery Date: 12/18/20 Last Updated by: Caridad Ponce PPH sec cervical bleeding, transfused 2 U PRBC 1 FFP 1 cryo 38 IOL chtn, covid Visit Details Expected Delivery Route/Plan Labor Preferences- CB/BF classes: [] labor support person: Davis labor intervention preferences: [] pain management options preferred: [] cut cord/dad catch: [] : [] PP control planned: [] discussed possible routes of delivery and associated risks: [] special requests: [] Plans Covid status: discussed Flu vaccine: discussed Tdap vaccine: given Rhogam:na LARC form signed: declined movement and labor precautions reviewed. Problem list reviewed and updated with the most current plan of care details and appropriate orders placed. Relevant counseling for the gestational age provided. Continue routine care and follow up unless otherwise noted in visit notes/problem list details OB Flowsheet Initial Weight: 231 lb Date -?-?-?-?-?-?-?-?-?-?-?-?- EGA Weight BP Urine Prot -?-?-?-?-?-?-?-?-?-?-?-?- Glucose FHR FuHt Pres Dilation -?-?-?-?-?-?-?-?-?-?-?-?- Effaced St Visit Note 10/02/22 -?-?-?-?-?-?-?-?-?-?-?-?- 8w 6d 231 lb (+0 oz) 123/78 -?-?-?-?-?-?-?-?-?-?-?-?- 168 -?-?-?-?-?-?-?-?-?-?-?-?- SM- CRL 1.8 cm c ons with lmp discuss HG treatment recommend short interval fu 10/10/22 -?-?-?-?-?-?-?-?-?-?-?-?- 10w 0d 229 lb 8 oz (-1 lb 8 oz) 119/71 -?-?-?-?-?-?-?-?-?-?-?-?- 170 -?-?-?-?-?-?-?-?-?-?-?-?- JV- pt is still having HG and just got out of infusion center for IV fluids and zofran. will request optum reglan pump. 10/20/22 -?-?-?-?-?-?-?-?-?-?-?-?- 11w 3d 225 lb 2 oz (-5 lb 14 oz) 117/78 -?-?-?-?-?-?-?-?-?-?-?-?- 144 -?-?-?-?-?-?-?-?-?-?-?-?- SM- had spotting and crmaping over the weekend, reglan pump didn't help but oral compazine is 11/07/22 -?-?-?-?-?-?-?-?-?-?-?-?- 14w 0d 220 lb 2 oz (-10 lb 14 oz) 128/79 Negative -?-?-?-?-?-?-?-?-?-?-?-?- Negative 147 -?-?-?-?-?-?-?-?-?-?-?-?- JV- no lof, vagi nal bleeding or cramping. some nausea but getting better. anatomy us to be done at [facility] per patient request. 12/05/22 -?-?-?-?-?-?-?-?-?-?-?-?- 18w 0d 211 lb 8 oz (-19 lb 8 oz) 116/84 Negative -?-?-?-?-?-?-?-?-?-?-?-?- Negative 144 -?-?-?-?-?-?-?-?-?-?-?-?- JV- no lof, vagi nal bleeding. + FM. pt states that she is losing sleep and has a hard time leaving her bedroom. She wants to go back on prozac. 01/02/23 -?-?-?-?-?-?-?-?-?-?-?-?- 22w 0d 217 lb 4 oz (-13 lb 12 oz) 135/76 118/84 -?-?-?-?-?-?-?-?-?-?-?-?- 142 -?-?-?-?-?-?-?-?-?-?-?-?- JV- normal anato my scan at [facility]. 01/30/23 -?-?-?-?-?-?-?-?-?-?-?-?- 26w 0d 219 lb (-12 lb) 119/78 Negative -?-?-?-?-?-?-?-?-?-?-?-?- Negative 145 26 -?-?-?-?-?-?-?-?-?-?-?-?- SM- cbc gct no v b lof good fm no regular ctx 02/19/23 -?-?-?-?-?-?-?-?-?-?-?-?- 28w 6d 221 lb 6 oz (-9 lb 10 oz) 126/80 Negative -?-?-?-?-?-?-?-?-?-?-?-?- Negative 140 -?-?-?-?-?-?-?-?-?-?-?-?- KW-+FM, no lof/v b/ctx. Increased dose of Prozac. consult and counseling discussed. 02/27/23 -?-?-?-?-?-?-?-?-?-?-?-?- 30w 0d 220 lb (-11 lb) 116/76 Negative -?-?-?-?-?-?-?-?-?-?-?-?- Negative 150 31 -?-?-?-?-?-?-?-?-?-?-?-?- JV- no lof, vagi nal bleeding, or dec fm. tdap and larc today 03/13/23 -?-?-?-?-?-?-?-?-?-?-?-?- 32w 0d 218 lb 8 oz (-12 lb 8 oz) 124/82 -?-?-?-?-?-?-?-?-?-?-?-?- 145 33 -?-?-?-?-?-?-?-?-?-?-?-?- S<M- no vb lof g ood fm no regular ctx 03/27/23 -?-?-?-?-?-?-?-?-?-?-?-?- 34w 0d 219 lb 6 oz (-11 lb 10 oz) 118/70 Trace -?-?-?-?-?-?-?-?-?-?-?-?- Negative 140 34 -?-?-?-?-?-?-?-?-?-?-?-?- LC- no regular c tx/lof/vb. good fm. 04/10/23 -?-?-?-?-?-?-?-?-?-?-?-?- 36w 0d 220 lb 2 oz (-10 lb 14 oz) 125/79 -?-?-?-?-?-?-?-?-?-?-?-?- 132 36 -?-?-?-?-?-?-?-?-?-?-?-?- JV- no lof, vagi nal bleeding, or dec fm. gbs collected. 04/17/23 -?-?--?-?-?-?-?-?-?-?-?-?- 37w 0d 221 lb 6 oz (-9 lb 10 oz) 112/74 Trace -?-?-?-?-?-?-?-?-?-?-?-?- Negative 134 37 Cephalic 2 -?-?-?--?-?-?-?-?-?-?-?-?- 50 -2 JV- no lof , vaginal bleeding, or dec fm. pepcid for reflux sent to pharmacy. 04/24/23 -?-?-?-?-?-?-?-?-?-?-?-?- 38w 0d 223 lb 6 oz (-7 lb 10 oz) 117/73 Negative -?-?-?-?-?-?-?-?-?-?-?-?- Negative 135 38 Cephalic 2 -?-?-?-?-?-?-?-?-?-?-?-?- 50 -1 SM- no vb lof good fm no regular ctx 05/01/23 -?-?-?-?-?-?-?-?-?-?-?-?- 39w 0d 223 lb 4 oz (-7 lb 12 oz) 114/73 Negative -?-?-?-?-?-?-?-?-?-?-?-?- Negative 140 39 Cephalic 2 -?-?-?-?-?-?-?-?-?-?-?-?- 70 -1 SM- no vb lof good fm no regular ctx 05/08/23 -?-?-?-?-?-?-?-?-?-?-?-?- 40w 0d 222 lb 4 oz (-8 lb 12 oz) 119/78 1+ -?-?-?-?-?-?-?-?-?-?-?-?- Negative 140 40 Cephalic 2 .5 -?-?-?-?-?-?-?-?-?-?-?-?- 70 0 SM- no vb lof good fm no regular ctx discussed proteinuria plan IOL thursday at 7 am NST FHR Rate Baby A Baseline: 140 Variability:: Moderate Accelerations:: 15 x 15 Decelerations:: None NST Reactive:: Yes FHR Category:: Category I Uterine Activity:: 1 in 10 minutes ROS Cardiovascular Cardiovascular: Denies abdominal pain, chest pain, diaphoresis or dyspnea Respiratory/Chest Respiratory/Chest: Denies change in mental status, chest congestion, chest tightness, cough, shortness of breath at rest, shortness of breath with exertion, breast mass, breast pain, breast skin changes, breast swelling, change in breast shape or nipple discharge Genitourinary Genitourinary: Reports change in urinary stream Musculoskeletal Musculoskeletal: Reports none Integumentary Integumentary: Reports none Neurologic Neurologic: Reports none Psychiatric Psychiatric: Reports none Endocrine Endocrinology: Reports none Hematologic/Lymphatic Hematologic/Lymphatic: Reports none Allergic/Immunologic Allergic/Immunologic: Reports none Vital Signs Vital Signs Vital Signs: 05/13/23 07:21 05/13/23 07:21 05/13/23 07:21 Temperature Source Temporal Pulse Rate 94 Blood Pressure 126/70 H BP Systolic 126 BP Diastolic 70 Weight Weight: 221 lb Body Mass Index (BMI) 35.6 Physical Exam Const alert, oriented x3 and no apparent distress General Appearance: cooperative, comfortable and well kempt Orientation / Consciousness: awake and oriented to person Exam Limitations: no limitations HEENT normocephalic Neck full ROM Chest inspection of chest normal Resp normal respiratory effort, normal air movement and no retractions Effort and Inspection: able to speak in complete sentences and symmetric chest movement Cardio regular rate Peripheral Pulses: pulses 2+ throughout GI normal to inspection, nondistended, normoactive bowel sounds Inspection: gravid no CVA tenderness and appearance of the vagina normal External Female Exam: normal appearance of the urethra; Negative for external lesion OB / External & Speculum: external exam normal Manual OB Exam: estimated gestational size appropriate and presentation cephalic Uterus Palpation: Negative for uterus tender Extremity normal to inspection Skin no rashes or lesions noted Neuro deep tendon reflexes 2+ bilaterally and gait normal Motor Exam: strength 5/5 throughout and clonus absent Psych Activity / Motor Behavior: appropriate eye contact Speech: normal speech Labs Labs Labs: Blood Type O POSITIVE Antibody Screen NEGATIVE Hct 31.3 % (37-47) L Hgb 9.7 g/dL (12.0-15.0) L Obstetrics US Syphilis Total Ab Non-reactive Rubella IgG Antibody Reactive (Nonreactive) Hep Bs Antigen Non-Reactive (Nonreactive) Chlamydia DNA (JIN) Negative (Negative) Neisseria gonorrhoeae DNA (JIN) Negative (Negative) HIV 1&2 Antibody Non-Reactive (Nonreactive) Glucose 1 Hr 50 gm 121 mg/dL (70-140) Rhogam given: No Assessment & Plan (1) Encounter for induction of labor: PLAN: pitocin/ AROM plans epidural for pain management (2) Hx of hemorrhage, currently : COMMENT: had 2 unit PRBC's, 1 Unit FFP, 1 unit cryo (3) History of gestational hypertension: COMMENT: 1st . (4) Supervision of high-risk : COMMENT: PRR , BRANDYN 05/08/23, boy PC Deep Borrego, Davis (5) : QUALIFIERS: Weeks of gestation: 40 weeks Qualified Code(s): Z3A.40 - 40 weeks gestation of COMMENT: GBS neg, NIPT low risk declined carrier testing (6) Anxiety and depression: COMMENT: severe PPD in past prozac increased 40mg Behavioral health consult SW involved in case Recommended counseling with Jarvis Willis (7) Bipolar disorder: QUALIFIERS: Active/Remission status: in full remission Most recent bipolar episode type: most recent episode unspecified type Qualified Code(s): F31.70 - Bipolar disorder, currently in remission, most recent episode unspecified COMMENT: no meds currently. PLAN: Plan Patient presents for IOL with favorable cervix, plan pitocin/AROM prn. Pain management: plans epidural. GBS negative. Management of any complications: none I have reviewed the [facility] and made any clinically relevant updates. Dr. Mahmood updated on admission, exam and poc. plan for active management of third stage and will update with progression.
[2023-05-13 09:27] LABS: Syphilis Antibodies Non-reactive
[2023-05-13] MEDS: Lactated Ringers 1,000 ML 200 ML IV (13:07)
[2023-05-13] MEDS: LACTATED RINGERS 500 ML 999 ML IV (13:07)
[2023-05-13] MEDS: fentaNYL-bupivacaine (epidural) 100 ML BAG EPIDURAL ×2 (13:46→17:53)
[2023-05-13] MEDS: Ondansetron 4 MG/2 ML Vial IV (14:50)
[2023-05-13] MEDS: proCHLORPERazine 10 MG/2 ML Vial IV (18:26)
[2023-05-13] MEDS: miSOPROStol 200 MCG Tablet 1000 MCG RC (19:04)
--- NOTE | 2023-05-13 19:15 | OP.PCM_ITS ---
Assessment & Plan (1) (spontaneous vaginal delivery): COMMENT: LC 40.5 IOL proteinuria. boy:royce (2) Supervision of high-risk : COMMENT: PRR , BRANDYN 05/08/23, boy PC Deep Borrego, Davis (3) : QUALIFIERS: Weeks of gestation: 40 weeks Qualified Code(s): Z3A.40 - 40 weeks gestation of COMMENT: GBS neg, NIPT low risk declined carrier testing (4) Anxiety and depression: COMMENT: severe PPD in past prozac increased 40mg Behavioral health consult SW involved in case Recommended counseling with Jarvis Willis (5) Bipolar disorder: QUALIFIERS: Active/Remission status: in full remission Most recent bipolar episode type: most recent episode unspecified type Qualified Code(s): F31.70 - Bipolar disorder, currently in remission, most recent episode unspecified COMMENT: no meds currently. (6) Hx of hemorrhage, currently : COMMENT: had 2 unit PRBC's, 1 Unit FFP, 1 unit cryo (7) History of gestational hypertension: COMMENT: 1st . Maternal Data Information BRANDYN Calculator Estimated Delivery Date Method Current WG Current Estimate 05/08/23 LMP (Certain) 40w 5d Other Estimates 05/07/23 Ultrasound #2 40w 6d Final BRANDYN: 05/08/23 Final BRANDYN Source: LMP Gestational age: 40.5 Vaginal Delivery Maternal Presentation Maternal Presentation: Medically Indicated Induction Maternal Presentation: at 40.5 IOL for proteinuria with significant hx of GHTN and PPH. IOL with pitocin and AROM progressed to fully dilated with urge to push Type of Induction: Pitocin Medical Reason for Induction: - (proteinuria) Operative Information Date of Procedure: 05/13/23 Pre-Operative Diagnosis: see problem list Post-Operative Diagnosis: Surgery / Procedure Performed: Spontaneous Vaginal Delivery Type of Anesthesia: Epidural Drain: Mandujano to straight drain Estimated Blood Loss: 300 Time of Delivery: 18:58 Findings Description of Procedure: Patient began pushing and delivered the head in the CHEPE presentation. The head was delivered atraumatically. The anterior and posterior shoulders delivered without complication followed by the rest of the infant and the infant was placed on the maternal abdomen. Delayed cord clamping was employed for approximately 120 seconds. Cord was clamped and cut and gentle traction was applied to the cord and the placenta delivered spontaneously immediately following it was noted to be intact with three-vessel cord. The perineum and vagina were inspected and noted to have no laceration. EBL was 300cc, hx of PPH- 1000mcg misoprostol placed DE for prevention. Patient and tolerated delivery well, entered recovery phase bonding skin to skin. Presentation: Vertex Amniotic Membrane Rupture Type: Artificial Amniotic Fluid Description: Clear Placental Delivery Description: Spontaneous Placenta Disposition: [facility] Cord Vessel Description: 3 Vessels Cord Entanglement: None Nuchal Cord Compression: Without compression Infant A Gender: Male (1 minute): 8 (5 minute): 9 Delayed Cord Clamping: Yes Post Vaginal Delivery Medications Given After Delivery: IV Pitocin and - (1000 mcg miso) Episiotomy Description: None Laceration: None Procedures Urinary/Genital [id number]: [id number] Vaginal Delivery [facility]
[2023-05-13] MEDS: Oxytocin 15 Units/NS 250ml 15 UNITS/250 ML IV.SOLN 83 UNITS IV (19:29)
[2023-05-13] MEDS: 0.9% Saline Lock 10 ML Syringe IV (22:39)
[2023-05-14 04:11] VITALS: BP 131/65; PULSE 87; RESP 16; TEMP 36.3
[2023-05-14 09:45] VITALS: BP 136/71; PULSE 90; RESP 17; TEMP 36
[2023-05-14 12:10] VITALS: BP 127/78; PULSE 82; RESP 16; TEMP 36.2
--- NOTE | 2023-05-14 13:48 | CHAPLAIN ---
Type of Pastoral Visit _x__ Initial Visit ___ Follow-up Visit ___ On-call Visit ___ General Patient Visit ___ Spiritual Assessment ___ Family Conference ___ Bereavement ___ Rapid Response ___ Code Blue ___ Other (describe below) Pastoral Care Referral From _x__ Patient _x_ Family ___ Nurse ___ Physician ___ Infantry Weapons Officer ___ Case Preparer And Liner ___ Other (describe below) Sacrament/Intervention _xx__ Active listening ___ Anointing ___ Christianity ___ Bereavement ___ Communion ___ Heather exploration ___ ___ Life review _x__ Prayer ___ Reconciliation ___ Sacrament of Sick _x__ Supportive presence ___ Wedding ___ Other (describe below) Pastoral Comments greeted patient, spouse, and other children; offer support and a prayer at this time; no further needs
--- NOTE | 2023-05-14 14:37 | PCM.PN.OB ---
Subjective Subjective Patient doing well without complaints. Tolerating PO. Ambulating and voiding without difficulty. Feeding well. Denies chest pain, shortness of breath, calf pain/swelling, fevers, chills, lightheadedness. Objective Data Objective Data Vital Signs: Vital Signs Temp Pulse Resp BP Pulse Ox O2 Del Method 97.1 F L 82 16 127/78 H 96 Room Air 05/14/23 12:10 05/14/23 12:10 05/14/23 12:10 05/14/23 12:10 05/13/23 21:16 05/14/23 12:10 Oxygen Delivery Method Room Air Weight: 221 lb Body Mass Index (BMI) 35.6 Intake & Output: Intake and Output for Last 24 Hours 05/12/23 05/13/23 05/14/23 23:59 23:59 23:59 Intake Total 2943.34 / 2943.34 Output Total 2600 / 2600 900 / 900 Balance 343.34 / 343.34 -900 / -900 Lab / Micro Data Attestation: I reviewed the patient's lab results. 05/13/23 08:00 ROS Constitutional Constitutional: Reports systems reviewed and no addt'l complaints, except as documented; Denies anorexia or headache(s) Cardiovascular Cardiovascular: Reports systems reviewed and no addt'l complaints, except as documented; Denies dizziness, dyspnea, nausea or tachypnea Respiratory/Chest Respiratory/Chest: Reports systems reviewed and no addt'l complaints, except as documented; Denies cough, dyspnea, shortness of breath at rest or tachypnea Gastrointestinal Gastrointestinal: Reports systems reviewed and no addt'l complaints, except as documented; Denies abdominal pain, constipation or nausea Genitourinary Genitourinary: Reports systems reviewed and no addt'l complaints, except as documented; Denies burning urination, difficulty urinating, dysuria, urinary frequency or urinary incontinence Musculoskeletal Musculoskeletal: Reports systems reviewed and no addt'l complaints, except as documented Integumentary Integumentary: Reports systems reviewed and no addt'l complaints, except as documented Neurologic Neurologic: Reports systems reviewed and no addt'l complaints, except as documented; Denies abnormal speech, dizziness or headache(s) Psychiatric Psychiatric: Reports systems reviewed and no addt'l complaints, except as documented Endocrine Endocrinology: Reports systems reviewed and no addt'l complaints, except as documented Hematologic/Lymphatic Hematologic/Lymphatic: Reports systems reviewed and no addt'l complaints, except as documented Physical Exam Const alert, oriented x3 and no apparent distress Neck full ROM Resp normal respiratory effort, normal air movement and no retractions Effort and Inspection: able to speak in complete sentences and symmetric chest movement GI soft to palpation Bladder / Kidney Exam: bladder normal to palpation Uterus Palpation: uterus fundus Extremity normal to inspection and full ROM Psych mental status grossly normal, thought process normal and cooperative Assessment & Plan (1) (spontaneous vaginal delivery): COMMENT: LC 40.5 IOL proteinuria. boy:royce PLAN: s/p PPD # 1 1. routine post delivery care 2. breast feeding- support given 3. rh positive 4. rubella immune 5. Discharge home (2) Encounter for induction of labor: (3) History of gestational hypertension: COMMENT: 1st . (4) Hx of hemorrhage, currently : COMMENT: had 2 unit PRBC's, 1 Unit FFP, 1 unit cryo (5) Supervision of high-risk : COMMENT: PRR , BRANDYN 05/08/23, boy PC Deep Brorego, Davis (6) : QUALIFIERS: Weeks of gestation: 40 weeks Qualified Code(s): Z3A.40 - 40 weeks gestation of COMMENT: GBS neg, NIPT low risk declined carrier testing (7) UTI symptoms: COMMENT: urine culture, Pt did not get culture. Sx improved. (8) Anxiety and depression: COMMENT: severe PPD in past prozac increased 40mg Behavioral health consult SW involved in case Recommended counseling with Jarvis Willis (9) Bipolar disorder: QUALIFIERS: Active/Remission status: in full remission Most recent bipolar episode type: most recent episode unspecified type Qualified Code(s): F31.70 - Bipolar disorder, currently in remission, most recent episode unspecified COMMENT: no meds currently. Charges/Coding Multi Select Codes Urinary/Genital Urinary/Genital CPT Codes: No Charge
--- NOTE | 2023-05-14 14:39 | DCINST_ITS ---
Discharge Instructions Follow Up Care Test Results: Test results from this visit will be discussed in further detail at your follow- up appointment, if applicable. Discharge Plan Admission Admit Date/Time: 05/13/23 07:00 Attending Provider: Gloria Jackson Primary Care Provider: Marco Romano Discharge Orders/Prescriptions Prescriptions: No Action vitamin#30 30 mg iron-10 mg iron-folic acid 1 mg-omg3 capsule 30 mg iron-10 mg iron-1 mg capsule 1 cap PO DAILY ondansetron 4 mg tablet,disintegrating 4 mg PO Q8H Qty: 90 4RF prochlorperazine maleate [Compazine] 10 mg tablet 10 mg PO Q8H PRN (Reason: nausea and vomiting) Qty: 90 1RF famotidine [Pepcid] 20 mg tablet 20 mg PO BID Qty: 60 4RF dimenhydrinate [Driminate] 50 mg tablet Patient Comments: TAKE 1 TABLET BY MOUTH EVERY 8 HOURS fluoxetine 40 mg capsule See Rx Instructions .ROUTE .COMPLEX Qty: 30 12RF Dose Instruction: TAKE 1 CAPSULE BY MOUTH EVERY DAY Rx Instructions: TAKE 1 CAPSULE BY MOUTH EVERY DAY Referrals / Follow Up: Marco Romano MD [Primary Care Provider] - Disposition Disposition (needs filled in before D/C Order can be placed): Home, Self Care
[2023-05-14 18:08] VITALS: BP 118/57; PULSE 82; RESP 16; TEMP 35.9
[2023-05-14] MEDS: Influenza Virus Vac Quad 23-24 60 MCG/0.5 ML SYRINGE IM (18:17)
[2023-05-14] MEDS: Naproxen 500 MG Tablet PO (18:18)
--- NOTE | 2023-05-15 12:06 | CASEMGMT ---
Social Work Assessment Labor and Delivery Unit Patient Address:[address] [place] [address] Phone number: [phone] Date of Referral: 05/13/23 Time of Referral:? [phone] Referred By: Gloria Jackson Date of Intervention: ??05/14/23 Time of Intervention:? 1500 Reason for Referral:? Patient's father is an alcholic Sw completed chart review and acknowledges social work consult entered. Sw presented to bedside and introduced self to mother of baby (ADELINE- Rocio), father of baby (FOB- Ashu) asleep on couch. Sw explained reason for social work involvement, completed assessment, and asked MOB to complete Marathon Depression Scale. Sw provided support and list of resources for MOB to utilize should she need once discharged. History obtained from: medical records and mother of baby (ADELINE)??? Household composition: Currently residing in the family home is ADELINE, DINORAH, their two older children and now baby boy. - Parents other children are: Salima Faustin: : 12/17/20 and Deep Faustin: : 03/01/19 - MOB stated that they also experienced a miscarriage last May, when they unintentionally got . ADELINE stated that after that loss she realized that she wanted to have a third baby. But then when she got with this she became very overwhelmed and anxious. Patient's parent/guardian status ADELINE reports that she and DINORAH have been together since they were 16 years old. They are high school sweet hearts and are now . MOB states that this is the third baby for both parents. MOB states that DINORAH was involved at and usually does really good with the other two children. ADELINE denies any domestic violence or intimate partner violence. Medical History:ADELINE is 5, para 2- now 4. ADELINE presented to hospital for induction of baby at 40 weeks gestation. ADELINE received routine care during with [facility]. Baby boy, named, Stiven Brizuela, was born on 05/13/[birth year] via vaginal delivery, weighing 9lb 9oz and his apgars were 8 and 9 at one and five minutes of life respectfully. MOB states that baby will see Dr. Starr for pediatric care. Educational Status:?MOB states that both parents graduated from high school. MOB has some college education, but no degree. Financial Status: DINORAH is gainfully employed outside of the home as an HVAC worker. ADELINE states that he is able to take time off, but it is unpaid. Infant Supplies:?ADELINE reports that they have everything they need for baby including: car seat, safe sleep space, clothes, diapers, wipes and breast pump. Childcare/Caregiver(s):?ADELINE states that she is the primary caregiver to baby and the two older children. MOB stated that this is where a lot of her stress comes from, is due to not having any help. MOB states that DINORAH will take over when he gets home from work, but she knows that he is also tired after working a fully day. MOB states that although they have family who are supportive, they do not offer to take the older two children to give mom a break. Andie brainstormed with ADELINE other solutions, such as Mommy and Me playdates with other moms, or latter day groups. Andie brainstormed activities that she can do with her 2 year old when her 4 year old is at school. ADELINE was open to suggestions, but it was evident that she was struggling and feels isolated. Transportation:??MOB states that both parents have their drivers license and reliable means of transportation. No transportation barriers at this time. Programs/Agencies Involved: ADELINE is connected to [facility] and [facility]. ??? Children Services/Legal Issues:???No prior involvement, no issues or concerns warranting a referral at this time. Behavioral Health Issues: ??Mental Health History: MOB states that DINORAH does not have a mental health history. MOB states that she has been diagnosed with depression, Bipolar, anxiety, and has a history of depression. ADELINE states that she has been taking prozac, however she had hyperemesis during that she does not know how effective it was because she always threw it up. ADELINE completed the Marathon Depression Scale and her score was a 22. Andie educated ADELINE on her score and discussed her mental health in more depth. ADELINE states that she does have a history of suicidal thoughts/ ideation. MOB states that earlier in she discussed these concerns with her OB and they attempted to get her connected to the outpatient behavioral health services offered at the hospital, however ADELINE does not have anyone to watch her kids for her so she can attend. Andie brainstormed this with MOB and encouraged her to reach out to family, friends or latter day members to see if someone would be able to assist with this. ADELINE states that she has a lot of guilt due to her mental health and feeling like a bad mom. Andie provided ADELINE with a list of other outpatient counseling services local to [place] and encouraged to her ask them if they would allow her to bring the baby and her son with her to appointments. MOB was receptive to this recommendation. ?? Substance Use History:?ADELINE denies substance use prior to and during . ? Family History:?ADELINE states that her father is an alcoholic, and will never be responsible for caring for her children alone. ? Drug Screens: ADELINE has a toxicology screen in her chart from 2019 and it was negative for all substances. ADELINE does not have a urine screen available in chart review for current admission. Family/Social Stressors:?Lack of support and maternal mental health are big stressors for MOB at this time. ADELINE does not feel as though she is able to ask for help from family members, has limited friends/ community supports. ADELINE states that she feels isolated and at times does not know how to talk to FOB regarding her symptoms because she does not want to add that stressor to his plate when he is the only one of them working. Support Systems: MOB reports that they have family members, mostly grandma's who are supportive, however they do not babysit or offer to take the children so that parents can have some down time and this is really difficult for MOB. Depression/Shaken Baby/Safe Sleeping:? Sw discussed signs and symptoms of baby blues and depression/ anxiety with MOB. Sw explained to ADELINE that she is more susceptible to experiencing one or both of these due to her mental health history. MOB expressed understanding and was very open with sw. Sw educated MOB on shaken baby prevention and ABCs of safe sleep. MOB expressed understanding. ASSESSMENT:? MOB currently admitted due to delivery of her third baby. MOB receptive and talkative/ open with sw regarding her mental health history and what she has been struggling with. MOB aware that she needs to get connected to mental health supports, but has barriers preventing her from doing so. Sw provided much support, active listening and recommendations. MOB was encouraged to open up and have conversations with FOB about how she is feeling and suggest that she needs time to do something for herself to help manage her mental health symptoms. PLAN:? MOB and baby discharged when medically ready. Sw offered to reach out to MOB once she has been home and settled, MOB receptive to this. ?No other services requested or indicated. Clemente Hdez, FLEET COORDINATOR, SLIP COVER ESTIMATOR
--- NOTE | 2023-05-18 14:10 | NURSING ---
Follow up phone call done. Patient reports that she has been great since being home. Baby was at Dr Thursday and was doing very well, nursing well and pooping a ton. Just needs another follow up for a weight check but denies questions or concerns. Discussed support available and patient was appreciative of that information. Reports she came into the hospital very anxious but her nurses took most of that fear away and she was so satisfied with her stay. Denies needs or concerns at this time.
== END 2023-05-14 20:05 | disposition home or self-care (01) | DRG 560 ==
PROVIDERS: Admitting Provider Registered Nurse; PCP Internal Medicine; Referring Provider Registered Nurse; Visit Provider Registered Nurse
DX: O12.14 Gestational proteinuria, complicating childbirth (principal); Z37.0 Single live birth; O99.344 Other mental disorders complicating childbirth; F31.76 Bipolar disorder, in full remission, most recent episode depressed; O69.2XX0 Labor and delivery complicated by other cord entanglement, with compression, not applicable or unspecified; Z3A.40 40 weeks gestation of pregnancy; Z79.899 Other long term (current) drug therapy; Z87.59 Personal history of other complications of pregnancy, childbirth and the puerperium; Z86.16 Personal history of COVID-19; Z23 Encounter for immunization
CPT/HCPCS: 59025; 59050; 85025; 86780; 86850; 86900; 86901; 99221; J7120; 90686; A4216; G0378; J2405

== ENCOUNTER → 2023-10-30 | Outpatient (CLI) | payer MEDICAID, SELFPAY ==
--- NOTE | 2023-10-30 16:24 | US_ITS ---
STUDY: ULTRASOUND TRANSVAGINAL CLINICAL: Female, 28 years old. iud placement TECHNIQUE: Transvaginal COMPARISON: None. FINDINGS: Normal uterine size measuring 3 x 4.9 x 3.3 cm in maximal craniocaudal dimension. There are no myometrial masses. Normal endometrial thickness measuring 9 mm. There are no endometrial masses, and there is no fluid in the endometrial cavity. IUD noted within the endometrial canal fundus. Normal uterine cervix. Normal right ovary, measuring 3.7 x 4 x 3.4 cm. There are multiple follicles without a dominant cyst. Normal left ovary, measuring 2.7 x 3.1 x 2.4 cm. There are multiple follicles without a dominant cyst. There is no free fluid in the pelvis. US/Transvaginal Non- IMPRESSION: IUD noted within the endometrial canal in the uterine fundus. No other significant finding Electronically Signed: Byron Munoz MD at 22:57 EST ,
--- OUTSIDE RECORDS SUMMARY | 2023-10-30 16:50 | XMS RPT_ITS | CCD ---
Author Name Unknown Address [address] [place] [address] Organization [facility] Care Team Providers Care Brand Advocate Name Role Phone Jeffery Hein Unavailable Unavailable PROVIDER, UNKNOWN Unavailable Unavailable No, PCP Unavailable Unavailable MASEELALL, CHHAYA Unavailable Unavailable PROVIDER, UNKNOWN Unavailable Unavailable No, PCP Unavailable Unavailable MASEELALL, CHHAYA Unavailable Unavailable PROVIDER, UNKNOWN Unavailable Unavailable No, PCP Unavailable Unavailable SERA URIAS Attending Unavailable REFERRED, SELF Referring Unavailable JOSEPH, RUBENS J Primary Care Unavailable SERA URIAS Attending Unavailable SERA URIAS Referring Unavailable JOSEPH, RUBENS J Primary Care Unavailable CHITO AMANDA Attending Unavailable CHITO AMANDA Referring Unavailable JOSEPH, RUBENS J Primary Care Unavailable KATELYN BEAVER Attending Unavailmelissa e KATELYN BEAVER Referring Unavailabl e JOSEPH, RUBENS J Primary Care Unavailable EUGENE COSBY Attending Unavailable KATELYN BEAVER Referring Unavailabl e JOSEPH, RUBENS J Primary Care Unavailable PHYSICIAN, NONE Primary Care Physician UnavailSARAHI Solo MD Primary Care Physician LIZABETH MENDOZA MD Attending Unavailable PHYSICIAN, NONE Primary Care Unavailable HORTENSIA LOUISE DO Attending Unavailable SARAHI LIANG MD Primary Care Unavailab macdonald Allergies Allergy Classification Reported Allergen(s) Allergy Type Date of Onset Reaction(s) Facility (2 sources) predniSONE; Translations: [prednisone] Drug Allergy Eruption of skin (disorder) [facility] Medications Current Medications Medication Drug Class(es) Dates Sig (Normalized) Sig (Original) FLUoxetine 40 mg oral capsule (2 sources) Serotonin Reuptake Inhibitor Start: 03-30-2023 FLUoxetine 40 mg oral capsule Dose : 40 mg = 1 cap(s), Oral, qDay, 0 Refill(s) Start Date: 03/30/23 Status: Ordered ondansetron 4 mg disintegrating oral tablet (2 sources) Serotonin-3 Receptor Antagonist Start: 03-30-2023 ondansetron 4 mg oral tablet, disintegrating Dose : 4 mg = 1 tab(s), Oral, q8h, PRN as needed for nausea/vomiting, 0 Refill(s) Start Date: 03/30/23 Status: Ordered prochlorperazine 10 mg oral tablet (2 sources) Phenothiazine Start: 03-30-2023 prochlorperazine 10 mg oral tablet Dose : 10 mg = 1 tab(s), Oral, TID, PRN Nausea/Vomiting, 0 Refill(s) Start Date: 03/30/23 Status: Ordered Completed/Discontinued Medications Medication Drug Class(es) Dates Sig (Normalized) Sig (Original) promethazine hydrochloride 25 mg rectal suppository (2 sources) Phenothiazine Start: 08-25-2018 Phenergan 25 mg rectal suppository Dose : 25 mg = 1 supp, Rectal, q4h, # 12 supp, 0 Refill(s) Start Date: 08/25/18 Status: Ordered Problems Problem Classification Problem Date Documented Da te Episodic/Chronic Contraceptive and procreative management (2 sources) Encounter for fertility testing; Translations: [Encounter for fertility testing] Onset: 03-10-2018 Episodic Headache; including migraine (1 source) Headache; Translations: [Headache, unspecified] Onset: 07-27-2023 Episodic Inflammatory diseases of female pelvic organs (2 sources) Chronic salpingitis; Translations: [Chronic salpingitis] Onset: 04-27-2018 Chronic Menstrual disorders (2 sources) Dysmenorrhea, unspecified; Translations: [Dysmenorrhea, unspecified] Onset: 04-27-2018 Chronic Other nutritional; endocrine; and metabolic disorders (2 sources) Obesity, unspecified; Translations: [Obesity, unspecified] Onset: 04-27-2018 Chronic Other nutritional; endocrine; and metabolic disorders (2 sources) Personal history of other endocrine, nutritional and metabolic disease; Translations: [Personal history of endo, nutritional and metabolic disease] Onset: 04-27-2018 Episodic Other and delivery including normal (2 sources) 08-25-2018 Episodic Results Test Name Value Interpretation Reference Range Facil ity Vital Signs Date Time Vital Sign Value Performing Clinician Aliyah rodríguez 07-27-2023 12:10-0500 Blood Pressure Location NIDAL CHOUJAA DO [facility] 07-27-2023 12:10-0500 Blood Pressure Method NIDAL CHOUJAA DO [facility] 07-27-2023 12:10-0500 Diastolic Blood Pressure Non-Invasive 82 mm[Hg] NIDAL CHOUJAA DO [facility] 07-27-2023 12:10-0500 Heart rate 84 /min NIDAL CHOUJAA DO [facility] 07-27-2023 12:10-0500 Respiratory rate 18 /min NIDAL CHOUJAA DO [facility] 07-27-2023 12:10-0500 Systolic Blood Pressure Non-Invasive 132 mm[Hg] NIDAL CHOUJAA DO [facility] 07-27-2023 08:20-0500 Blood Pressure Cuff Size NIDAL CHOUJAA DO [facility] 07-27-2023 08:20-0500 Blood Pressure Location NIDAL CHOUJAA DO [facility] 07-27-2023 08:20-0500 Blood Pressure Method NIDAL CHOUJAA DO [facility] 07-27-2023 08:20-0500 Body height 167.6 cm NIDAL CHOUJAA DO [facility] 07-27-2023 08:20-0500 Body temperature 97.7 [degF] NIDAL CHOUJAA DO [facility] 07-27-2023 08:20-0500 Body weight 90.9 kg NIDAL CHOUJAA DO [facility] 07-27-2023 08:20-0500 Diastolic Blood Pressure Non-Invasive 81 mm[Hg] NIDAL CHOUJAA DO [facility] 07-27-2023 08:20-0500 Heart rate 82 /min NIDAL CHOUJAA DO [facility] 07-27-2023 08:20-0500 Respiratory rate 18 /min NIDAL CHOUJAA DO [facility] 07-27-2023 08:20-0500 Systolic Blood Pressure Non-Invasive 133 mm[Hg] NIDAL CHOUJAA DO [facility] 03-30-2023 16:25-0400 Body temperature 98.42 [degF] LIZABETH MENDOZA MD [facility] 03-30-2023 16:25-0400 Body weight 99.5 kg LIZABETH MENDOZA MD [facility] 03-30-2023 16:25-0400 Diastolic Blood Pressure Non-Invasive 64 1 LIZABETH MENDOZA MD [facility] 03-30-2023 16:25-0400 Heart rate 116 /min LIZABETH MENDOZA MD [facility] 03-30-2023 16:25-0400 Respiratory rate 16 /min LIZABETH MENDOZA MD [facility] 03-30-2023 16:25-0400 Systolic Blood Pressure Non-Invasive 117 1 LIZABETH MENDOZA MD [facility] Encounters Encounter Date Encounter Type Care Provider Facility Start: 07-27-2023 End: 07-27-2023 Emergency department patient visit HORTENSIA LOUISE DO Facility:B Start: 07-27-2023 End: 07-27-2023 Emergency department patient visit HORTENSIA LOUISE DO [facility] Start: 03-30-2023 End: 03-30-2023 Emergency department patient visit LIZABETH MENDOZA MD Facility:[facility] Start: 03-30-2023 End: 03-30-2023 Emergency department patient visit LIZABETH MENDOZA MD [facility] Start: 11-08-2018 End: 11-08-2018 Patient encounter procedure EUGENE COSBY [facility] Start: 10-22-2018 End: 10-22-2018 Patient encounter procedure KATELYN BEAVER [facility] Start: 04-27-2018 Patient encounter CHHAYALESLIE WHITLOCKCHARITY [facility] Start: 04-20-2018 Patient encounter CHHAYALESLIE BHATTMTARABELLA [facility] Start: 03-10-2018 Patient encounter Jeffery Hein [facility] Start: 02-01-2018 Patient encounter procedure CHITO MAANDA [facility] Start: 01-11-2018 End: 01-12-2018 [facility] Start: 12-30-2017 End: 12-30-2017 [facility] Payers Date Payer Category Payer Unknown [id number] 1995 Unknown [id number] 1996 Unknown [id number] [id number] [id number] 1996 Unknown [id number] 2.16.8 [id number] 1996 Unknown [id number] 2.16.8 [id number] 1996 Unknown [id number] 2.16.8 [id number] 1996 Unknown [id number] 2.16.8 [id number] 1996 Unknown [id number] 2.16.8 [id number] Unknown Unknown [id number] Social History Date Type Detail Facility Tobacco smoking status No Smoking Status Entered [facility] Sex Assigned At Female [facility] Functional Status Date Assessment Result Facility 07-27-2023 Functional Status Repositions self [facility] 07-27-2023 Functional Status Room check performed [facility] 03-30-2023 Functional Status ID band on, Allergy Band on, Call device within reach, Bed in low position, Wheels locked, personal items within reach [facility] Mental Status Date Assessment Result [facility] 07-27-2023 Mental Status Orientation Oriented x 4 [facility] 07-27-[address] [facility] 03-30-2023 Mental Status Oriented x 4 [facility] Discharge instructions 07-27-2023 Note Date & Type Note Facility 07-27-2023 Hospital Discharg e instructions Patient Education 07/27/2023 11:42:37 Self-Care for Headaches Self-Care for Headaches Most headaches aren't serious and can be relieved with self-care. But some headaches may be a sign of another health problem like eye trouble or high blood pressure. To find the best treatment, learn what kind of headaches you get. For tension headaches, self-care will usually help. To treat migraines, ask your healthcare provider for advice. It is also possible to get both tension and migraine headaches. Self-care involves relieving the pain and avoiding headache triggers if you can. Ways to reduce pain and tension Try these steps: Apply a cold compress or ice pack to the pain site. Drink fluids. If nausea makes it hard to drink, try sucking on ice. Rest. Protect yourself from bright light and loud noises. Calm your emotions by imagining a peaceful scene. Massage tight neck, shoulder, and head muscles. To relax muscles, soak in a hot bath or use a hot shower. Use medicines Aspirin or other fdyy-giv-irqenlz pain medicines, such as ibuprofen and acetaminophen, can relieve headache. Remember: Never give aspirin to anyone 18 years old or younger because of the risk of developing Diane syndrome. Use pain medicines only when needed. Certain prescription medicines, if taken too often, can lead to rebound headaches. Check with your healthcare provider or pharmacist about your medicines. Track your headaches Keeping a headache diary can help you and your healthcare provider identify what's causing your headaches: Note when each headache happens. Identify your activities and the foods you've eaten 6 to 8 hours before the headache began. Look for any trends or triggers. Signs of tension headache Any of the following can be signs: Dull pain or feeling of pressure in a tight band around your head Pain in your neck or shoulders Headache without a definite beginning or end Headache after an activity such as driving or working on a computer Signs of migraine Any of the following can be signs: Throbbing pain on one or both sides of your head Nausea or vomiting Extreme sensitivity to light, sound, and smells Bright spots, flashes, or other visual changes Pain or nausea so severe that you can't continue your daily activities Call your healthcare provider If you have any of the following symptoms, contact your healthcare provider: A headache that lingers after a recent injury or bump to the head. A fever with a stiff neck or pain when you bend your head toward your chest. A headache along with slurred speech, changes in your vision, or numbness or weakness in your arms or legs. A headache for longer than 3 days. Frequent headaches, especially in the morning. Headaches with seizures Seek immediate medical attention if you have a headache that you would call the worst headache you have ever had. [id number] [employer]. [address] [place] [address]. All rights reserved. This information is not intended as a substitute for professional medical care. Always follow your healthcare professional's instructions. 07/27/2023 11:42:34 Headache, Unspecified Headache, Unspecified A number of things can cause headaches. The cause of your headache isn t clear. But it doesn t seem to be a sign of any serious illness. Headache affects almost everyone at some time. It is the most common reason people miss days from work or school. You could have a tension headache or a migraine headache. Stress can cause a tension headache. This can happen if you tense the muscles of your shoulders, neck, and scalp without knowing it. If this stress lasts long enough, you may develop a tension headache. It is not clear why migraines occur, but certain things called triggers can raise the risk of having a migraine attack. Migraine triggers may include emotional stress or depression, or by hormone changes during the menstrual cycle. Other triggers include control pills and other medicines, alcohol or caffeine, foods with tyramine (such as aged cheese, wine), eyestrain, weather changes, missed meals, and lack of sleep or oversleeping. Other causes of headache include: Viral illness with high fever Head injury with concussion Sinus, ear, or throat infection Dental pain and jaw joint (TMJ) pain More serious but less common causes of headache include stroke, brain hemorrhage, brain tumor, meningitis, and encephalitis. Home care Follow these tips when taking care of yourself at home: Don t drive yourself home if you were given pain medicine for your headache. Instead, have someone else drive you home. Try to sleep when you get home. You should feel much better when you wake up. Apply heat to the back of your neck to ease a neck muscle spasm. Take care of a migraine headache by putting an ice pack on your forehead or at the base of your skull. If you have nausea or vomiting, eat a light diet until your headache eases. If you have a migraine headache, use sunglasses when in the daylight or around bright indoor lighting until your symptoms get better. Bright glaring light can make this type of headache worse. Follow-up care Follow up with your healthcare provider, or as advised. Talk with your provider if you have frequent headaches. He or she can help figure out a treatment plan. By knowing the earliest signs of headache, and starting treatment right away, you may be able to stop the pain yourself. When to seek medical advice Call your healthcare provider right away if any of these occur: Your head pain suddenly gets worse after sexual intercourse or strenuous activity Your head pain doesn t get better within 24 hours You aren t able to keep liquids down (repeated vomiting) Fever of 100.4 F (38 C) or higher, or as directed by your healthcare provider Stiff neck Extreme drowsiness, confusion, or fainting Dizziness or dizziness with spinning sensation (vertigo) Weakness in an arm or leg or one side of your face You have trouble talking or seeing [id number] [employer]. [address] [place] [address]. All rights reserved. This information is not intended as a substitute for professional medical care. Always follow your healthcare professional's instructions. Follow Up Care 07/27/2023 08:11:40 With:SARAHI LIANG MD Address: Critical [facility] [place] [address]- [phone] When:2-4 days [facility] Clinical Note 07-27-2023 Note Date & Type Note Facility 07-27-2023 Note Discharge Instructions Thank you for allowing [facility] to assist you with your healthcare needs. The following is important discharge information regarding your hospital visit. Diagnosis from Today's Visit Headache migraine What to Do Next Instructions from Your Care Team Discharge Return to Work, School, or Sports (Return to Work, School, or Sports) - Ordered -- 07/28/23, May return to: work, 07/27/23 11:36:00 EST Post Acute Orders No qualifying data available. You Need to Schedule the Following Appointments Follow Up with SARAHI LIANG MD When Within 2-4 days Where: [place] [id number] [phone] Allergies predniSONE (Rash) Medications Please ask your primary doctor or pharmacist before taking any other medication not listed, including over the counter drugs, herbal medications, vitamins and or supplements as they may interact with your home medications. What How Much When Instructions Last Dose Unchanged FLUoxetine (FLUoxetine 40 mg oral capsule) 1 cap by mouth Once a day Unchanged ondansetron (ondansetron 4 mg oral tablet, disintegrating) 1 tab(s) by mouth Every 8 hours as needed for as needed for nausea/vomiting Unchanged prochlorperazine (prochlorperazine 10 mg oral tablet) 1 tab(s) by mouth Three (3) times a day as needed for Nausea/Vomiting Unchanged promethazine (Phenergan 25 mg rectal suppository) 1 suppository(ies) in the rectum Every 4 hours Please take this list to your next doctor s visit. Bring all medications you take, including over the counter medications, herbals and other supplements with you to your doctor s visit. Patients and families are reminded to discard old lists and to update any records with all medication providers or retail pharmacies. Education Materials Self-Care for Headaches Most headaches aren't serious and can be relieved with self-care. But some headaches may be a sign of another health problem like eye trouble or high blood pressure. To find the best treatment, learn what kind of headaches you get. For tension headaches, self-care will usually help. To treat migraines, ask your healthcare provider for advice. It is also possible to get both tension and migraine headaches. Self-care involves relieving the pain and avoiding headache triggers if you can. Ways to reduce pain and tension Try these steps: Apply a cold compress or ice pack to the pain site. Drink fluids. If nausea makes it hard to drink, try sucking on ice. Rest. Protect yourself from bright light and loud noises. Calm your emotions by imagining a peaceful scene. Massage tight neck, shoulder, and head muscles. To relax muscles, soak in a hot bath or use a hot shower. Use medicines Aspirin or other rrvj-lne-dluisof pain medicines, such as ibuprofen and acetaminophen, can relieve headache. Remember: Never give aspirin to anyone 18 years old or younger because of the risk of developing Diane syndrome. Use pain medicines only when needed. Certain prescription medicines, if taken too often, can lead to rebound headaches. Check with your healthcare provider or pharmacist about your medicines. Track your headaches Keeping a headache diary can help you and your healthcare provider identify what's causing your headaches: Note when each headache happens. Identify your activities and the foods you've eaten 6 to 8 hours before the headache began. Look for any trends or triggers. Signs of tension headache Any of the following can be signs: Dull pain or feeling of pressure in a tight band around your head Pain in your neck or shoulders Headache without a definite beginning or end Headache after an activity such as driving or working on a computer Signs of migraine Any of the following can be signs: Throbbing pain on one or both sides of your head Nausea or vomiting Extreme sensitivity to light, sound, and smells Bright spots, flashes, or other visual changes Pain or nausea so severe that you can't continue your daily activities Call your healthcare provider If you have any of the following symptoms, contact your healthcare provider: A headache that lingers after a recent injury or bump to the head. A fever with a stiff neck or pain when you bend your head toward your chest. A headache along with slurred speech, changes in your vision, or numbness or weakness in your arms or legs. A headache for longer than 3 days. Frequent headaches, especially in the morning. Headaches with seizures Seek immediate medical attention if you have a headache that you would call the worst headache you have ever had. [id number] [employer]. [address] [place] [address], [place] [address]. All rights reserved. This information is not intended as a substitute for professional medical care. Always follow your healthcare professional's instructions. Headache, Unspecified A number of things can cause headaches. The cause of your headache isn t clear. But it doesn t seem to be a sign of any serious illness. Headache affects almost everyone at some time. It is the most common reason people miss days from work or school. You could have a tension headache or a migraine headache. Stress can cause a tension headache. This can happen if you tense the muscles of your shoulders, neck, and scalp without knowing it. If this stress lasts long enough, you may develop a tension headache. It is not clear why migraines occur, but certain things called triggers can raise the risk of having a migraine attack. Migraine triggers may include emotional stress or depression, or by hormone changes during the menstrual cycle. Other triggers include control pills and other medicines, alcohol or caffeine, foods with tyramine (such as aged cheese, wine), eyestrain, weather changes, missed meals, and lack of sleep or oversleeping. Other causes of headache include: Viral illness with high fever Head injury with concussion Sinus, ear, or throat infection Dental pain and jaw joint (TMJ) pain More serious but less common causes of headache include stroke, brain hemorrhage, brain tumor, meningitis, and encephalitis. Home care Follow these tips when taking care of yourself at home: Don t drive yourself home if you were given pain medicine for your headache. Instead, have someone else drive you home. Try to sleep when you get home. You should feel much better when you wake up. Apply heat to the back of your neck to ease a neck muscle spasm. Take care of a migraine headache by putting an ice pack on your forehead or at the base of your skull. If you have nausea or vomiting, eat a light diet until your headache eases. If you have a migraine headache, use sunglasses when in the daylight or around bright indoor lighting until your symptoms get better. Bright glaring light can make this type of headache worse. Follow-up care Follow up with your healthcare provider, or as advised. Talk with your provider if you have frequent headaches. He or she can help figure out a treatment plan. By knowing the earliest signs of headache, and starting treatment right away, you may be able to stop the pain yourself. When to seek medical advice Call your healthcare provider right away if any of these occur: Your head pain suddenly gets worse after sexual intercourse or strenuous activity Your head pain doesn t get better within 24 hours You aren t able to keep liquids down (repeated vomiting) Fever of 100.4 F (38 C) or higher, or as directed by your healthcare provider Stiff neck Extreme drowsiness, confusion, or fainting Dizziness or dizziness with spinning sensation (vertigo) Weakness in an arm or leg or one side of your face You have trouble talking or seeing [phone] [employer]. [address] [place] [address]. All rights reserved. This information is not intended as a substitute for professional medical care. Always follow your healthcare professional's instructions. Additional Information VACCINATE! IT SAVES LIVES! Members of the community who have not yet received the COVID-19 vaccine and would like to receive it can visit one of [facility] vaccine clinics. There are many vaccine clinic locations within the [facility]. For locations and available times, please visit www.gettheshot.coronavirus.[place].gov/. It is important to note that some COVID mobile vaccine clinics are held outdoors and may be canceled in rainy or stormy conditions. To learn more about pediatric vaccinations (ages 5-11), we invite you to visit the [facility] webpage. https://www.[email or web address].org/pages/2 608-Hicfc-Iswgazgzdpx-Frequently-Asked -Questions.html To learn more about the COVID-19 vaccine, we invite you to visit the CDC website for a list of frequently asked questions. https://www.cdc.gov/coronavirus/2019-n cov/vaccines/faq.html [facility] [employer] Patient Portal Access Instructions: Stay connected with your healthcare team and access your personal medical information anytime with the [facility] Patient Portal. If you would like a full copy of your medical records please contact the [facility] Medical Records Department Thursday through Thursday between 8a.m. and 4:30p.m. Please follow the directions below to access the portal: 1.Access the email account you provided upon registration to the [facility].2.Look for an invitation email from [facility].3.Open the email and access the invitation link: Accept Invitation to [facility]4.Fill in the required mccoy to create your account. Sign into [email or web address] with your username and password that you created in the above steps to stay up to date. You can then view a summary of results, a summary of your visits, and the ability to download your summaries to your computer or send the information securely to a physician. Remember that your healthcare information is confidential, so carefully consider who you will allow to register on the [facility] Patient Portal for access to your information. You can also access the [facility] Patient Portal on the [employer]. Simply click on Health Records under Health Data and then click on the [employer] logo. HOW TO SAFELY DISPOSE OF PRESCRIPTION MEDICATIONS Please use one of the following methods to safely dispose of your unused medications. 1.Use a drug disposal kit: the drug disposal pouch allows you to safely discard your old and unused drugs. Ask your nurse to give you one when you are discharged.2.Visit a local take-back location: Many local pharmacies and police departments have programs that collect old and unwanted prescription drugs. Call your local pharmacy or go to http://bit.[employer]/7H8Wt8f to find one close to you.3.Make use of household items: Use cat litter or old coffee grounds to dispose medications if other options are not available. Mix your drugs with these household products, seal them in an airtight container and throw it into the garbage. Call [facility]: [phone] to be sure your drugs can be disposed of in this way. Some medicines may require a different approach.4.Never flush your medications down the toilet. IF YOU HAVE BEEN PRESCRIBED AN OPIOIDS FOR PAIN If you have been prescribed an opioid (such as hydrocodone, oxycodone or morphine), it is critical to understand the possible side effects and risks of opioid pain medications. Even when taken as directed, opioids can have several side effects including: Tolerance, meaning you might need to take more of a medication for the same pain relief. Nausea, vomiting and/or constipation. Sleepiness, dizziness, dry mouth, confusion, depression or itching. Physical dependence, meaning you have withdrawal symptoms when a medication is stopped ? this can develop within a few days. KNOW YOUR RESPONSIBILITIES It is important to know exactly how much and how often to take the opioid pain medications you are prescribed. Never take opioids in higher amounts or more often than prescribed. Do not combine opioids with alcohol or other drugs that cause drowsiness, such as benzodiazepines, also known as benzos, including diazepam and alprazolam, muscle relaxants or sleep aids. Never sell or share prescription opioids. This is illegal. Store opioids in a secure place and out of reach of others (including children, family, friends and visitors). The last page(s) of this document has been signed and retained as a CHART COPY Signatures Patient Education Materials Self-Care for Headaches Headache, Unspecified Medication Leaflets My discharge plan and instructions have been reviewed and explained to me and I,LAURA VALENCIA V understand my current condition and have read and understand these discharge instructions. I have received a written copy of the plan/instructions. If I have questions, I am aware that I should contact my doctor. 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 The following is important discharge information regarding your hospital visit. Diagnosis from Today's Visit Headache migraine What to Do Next Instructions from Your Care Team Discharge Return to Work, School, or Sports (Return to Work, School, or Sports) - Ordered -- 07/28/23, May return to: work, 07/27/23 11:36:00 EST Post Acute Orders No qualifying data available. You Need to Schedule the Following Appointments Follow Up with SARAHI LIANG MD When Within 2-4 days Where: [address] [place] [address]- [phone] Allergies predniSONE (Rash) Medications Please ask your primary doctor or pharmacist before taking any other medication not listed, including over the counter drugs, herbal medications, vitamins and or supplements as they may interact with your home medications. What How Much When Instructions Last Dose Unchanged FLUoxetine (FLUoxetine 40 mg oral capsule) 1 cap by mouth Once a day Unchanged ondansetron (ondansetron 4 mg oral tablet, disintegrating) 1 tab(s) by mouth Every 8 hours as needed for as needed for nausea/vomiting Unchanged prochlorperazine (prochlorperazine 10 mg oral tablet) 1 tab(s) by mouth Three (3) times a day as needed for Nausea/Vomiting Unchanged promethazine (Phenergan 25 mg rectal suppository) 1 suppository(ies) in the rectum Every 4 hours Please take this list to your next doctor s visit. Bring all medications you take, including over the counter medications, herbals and other supplements with you to your doctor s visit. Patients and families are reminded to discard old lists and to update any records with all medication providers or retail pharmacies. Education Materials Self-Care for Headaches Most headaches aren't serious and can be relieved with self-care. But some headaches may be a sign of another health problem like eye trouble or high blood pressure. To find the best treatment, learn what kind of headaches you get. For tension headaches, self-care will usually help. To treat migraines, ask your healthcare provider for advice. It is also possible to get both tension and migraine headaches. Self-care involves relieving the pain and avoiding headache triggers if you can. Ways to reduce pain and tension Try these steps: Apply a cold compress or ice pack to the pain site. Drink fluids. If nausea makes it hard to drink, try sucking on ice. Rest. Protect yourself from bright light and loud noises. Calm your emotions by imagining a peaceful scene. Massage tight neck, shoulder, and head muscles. To relax muscles, soak in a hot bath or use a hot shower. Use medicines Aspirin or other nnha-jqs-zfswcnm pain medicines, such as ibuprofen and acetaminophen, can relieve headache. Remember: Never give aspirin to anyone 18 years old or younger because of the risk of developing Diane syndrome. Use pain medicines only when needed. Certain prescription medicines, if taken too often, can lead to rebound headaches. Check with your healthcare provider or pharmacist about your medicines. Track your headaches Keeping a headache diary can help you and your healthcare provider identify what's causing your headaches: Note when each headache happens. Identify your activities and the foods you've eaten 6 to 8 hours before the headache began. Look for any trends or triggers. Signs of tension headache Any of the following can be signs: Dull pain or feeling of pressure in a tight band around your head Pain in your neck or shoulders Headache without a definite beginning or end Headache after an activity such as driving or working on a computer Signs of migraine Any of the following can be signs: Throbbing pain on one or both sides of your head Nausea or vomiting Extreme sensitivity to light, sound, and smells Bright spots, flashes, or other visual changes Pain or nausea so severe that you can't continue your daily activities Call your healthcare provider If you have any of the following symptoms, contact your healthcare provider: A headache that lingers after a recent injury or bump to the head. A fever with a stiff neck or pain when you bend your head toward your chest. A headache along with slurred speech, changes in your vision, or numbness or weakness in your arms or legs. A headache for longer than 3 days. Frequent headaches, especially in the morning. Headaches with seizures Seek immediate medical attention if you have a headache that you would call the worst headache you have ever had. 4927-6503 [employer]. [address] [place], [place] [id number]. All rights reserved. This information is not intended as a substitute for professional medical care. Always follow your healthcare professional's instructions. Headache, Unspecified A number of things can cause headaches. The cause of your headache isn t clear. But it doesn t seem to be a sign of any serious illness. Headache affects almost everyone at some time. It is the most common reason people miss days from work or school. You could have a tension headache or a migraine headache. Stress can cause a tension headache. This can happen if you tense the muscles of your shoulders, neck, and scalp without knowing it. If this stress lasts long enough, you may develop a tension headache. It is not clear why migraines occur, but certain things called triggers can raise the risk of having a migraine attack. Migraine triggers may include emotional stress or depression, or by hormone changes during the menstrual cycle. Other triggers include control pills and other medicines, alcohol or caffeine, foods with tyramine (such as aged cheese, wine), eyestrain, weather changes, missed meals, and lack of sleep or oversleeping. Other causes of headache include: Viral illness with high fever Head injury with concussion Sinus, ear, or throat infection Dental pain and jaw joint (TMJ) pain More serious but less common causes of headache include stroke, brain hemorrhage, brain tumor, meningitis, and encephalitis. Home care Follow these tips when taking care of yourself at home: Don t drive yourself home if you were given pain medicine for your headache. Instead, have someone else drive you home. Try to sleep when you get home. You should feel much better when you wake up. Apply heat to the back of your neck to ease a neck muscle spasm. Take care of a migraine headache by putting an ice pack on your forehead or at the base of your skull. If you have nausea or vomiting, eat a light diet until your headache eases. If you have a migraine headache, use sunglasses when in the daylight or around bright indoor lighting until your symptoms get better. Bright glaring light can make this type of headache worse. Follow-up care Follow up with your healthcare provider, or as advised. Talk with your provider if you have frequent headaches. He or she can help figure out a treatment plan. By knowing the earliest signs of headache, and starting treatment right away, you may be able to stop the pain yourself. When to seek medical advice Call your healthcare provider right away if any of these occur: Your head pain suddenly gets worse after sexual intercourse or strenuous activity Your head pain doesn t get better within 24 hours You aren t able to keep liquids down (repeated vomiting) Fever of 100.4 F (38 C) or higher, or as directed by your healthcare provider Stiff neck Extreme drowsiness, confusion, or fainting Dizziness or dizziness with spinning sensation (vertigo) Weakness in an arm or leg or one side of your face You have trouble talking or seeing 8345-1327 [employer]. [address] [place] [address]. All rights reserved. This information is not intended as a substitute for professional medical care. Always follow your healthcare professional's instructions. Additional Information VACCINATE! IT SAVES LIVES! Members of the community who have not yet received the COVID-19 vaccine and would like to receive it can visit one of [facility] vaccine clinics. There are many vaccine clinic locations within the [facility]. For locations and available times, please visit www.gettheshot.coronavirus.[place].gov/. It is important to note that some COVID mobile vaccine clinics are held outdoors and may be canceled in rainy or stormy conditions. To learn more about pediatric vaccinations (ages 5-11), we invite you to visit the [facility] webpage. [email or web address]/pages/[email or web address]-Latqg-Drvzxhtzxfs-Frequently-[email or web address] -Questions.html To learn more about the COVID-19 vaccine, we invite you to visit the CDC website for a list of frequently asked questions. https://www.cdc.gov/coronavirus/2019-n cov/vaccines/faq.html [facility] [facility] Patient Portal Access Instructions: Stay connected with your healthcare team and access your personal medical information anytime with the [facility] Patient Portal. If you would like a full copy of your medical records please contact the [facility] Medical Records Department Thursday through Thursday between 8a.m. and 4:30p.m. Please follow the directions below to access the portal: 1.Access the email account you provided upon registration to the [facility].2.Look for an invitation email from [facility].3.Open the email and access the invitation link: Accept Invitation to [facility].Fill in the required mccoy to create your account. Sign into [email or web address] with your username and password that you created in the above steps to stay up to date. You can then view a summary of results, a summary of your visits, and the ability to download your summaries to your computer or send the information securely to a physician. Remember that your healthcare information is confidential, so carefully consider who you will allow to register on the [facility] Patient Portal for access to your information. You can also access the [facility] Patient Portal on the [employer]. Simply click on Health Records under Health Data and then click on the [employer] logo. HOW TO SAFELY DISPOSE OF PRESCRIPTION MEDICATIONS Please use one of the following methods to safely dispose of your unused medications. 1.Use a drug disposal kit: the drug disposal pouch allows you to safely discard your old and unused drugs. Ask your nurse to give you one when you are discharged.2.Visit a local take-back location: Many local pharmacies and police departments have programs that collect old and unwanted prescription drugs. Call your local pharmacy or go to http://[employer]/2P7Wt1u to find one close to you.3.Make use of household items: Use cat litter or old coffee grounds to dispose medications if other options are not available. Mix your drugs with these household products, seal them in an airtight container and throw it into the garbage. Call [facility]: [phone] to be sure your drugs can be disposed of in this way. Some medicines may require a different approach.4.Never flush your medications down the toilet. IF YOU HAVE BEEN PRESCRIBED AN OPIOIDS FOR PAIN If you have been prescribed an opioid (such as hydrocodone, oxycodone or morphine), it is critical to understand the possible side effects and risks of opioid pain medications. Even when taken as directed, opioids can have several side effects including: Tolerance, meaning you might need to take more of a medication for the same pain relief. Nausea, vomiting and/or constipation. Sleepiness, dizziness, dry mouth, confusion, depression or itching. Physical dependence, meaning you have withdrawal symptoms when a medication is stopped ? this can develop within a few days. KNOW YOUR RESPONSIBILITIES It is important to know exactly how much and how often to take the opioid pain medications you are prescribed. Never take opioids in higher amounts or more often than prescribed. Do not combine opioids with alcohol or other drugs that cause drowsiness, such as benzodiazepines, also known as benzos, including diazepam and alprazolam, muscle relaxants or sleep aids. Never sell or share prescription opioids. This is illegal. Store opioids in a secure place and out of reach of others (including children, family, friends and visitors). The last page(s) of this document has been signed and retained as a CHART COPY Signatures Patient Education Materials Self-Care for Headaches Headache, Unspecified Medication Leaflets My discharge plan and instructions have been reviewed and explained to me and I,LAURA VALENCIA V understand my current condition and have read and understand these discharge instructions. I have received a written copy of the plan/instructions. If I have questions, I am aware that I should contact my doctor. 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 Automated exposure control, iterative reconstruction, and/or weight based adjustment of the mA/kV was utilized to reduce the radiation dose to as low as reasonably achievable. COMPARISON: None. HISTORY: ORDERING SYSTEM PROVIDED HISTORY: Reason for Exam: HO x5 hours. NKI. N+V, blurry vision. pain/headache FINDINGS: BRAIN/VENTRICLES: There is no acute intracranial hemorrhage, mass effect or midline shift. No abnormal extra-axial fluid collection. The benedict-white differentiation is maintained without evidence of an acute infarct. There is no evidence of hydrocephalus. ORBITS: The visualized portion of the orbits demonstrate no acute abnormality. SINUSES: The visualized paranasal sinuses and mastoid air cells demonstrate no acute abnormality. SOFT TISSUES/SKULL: No acute abnormality of the visualized skull or soft tissues. IMPRESSION: No acute intracranial abnormality. Interpreted by: Cori Cortez MD Preliminary Report By: Cori Cortez MD Electronically signed By Cori Cortez MD Dictated Date: 07/27/2023 10:53:57 AM Prelim Date: 07/27/2023 10:56:53 AM Sign Date: 07/27/2023 10:56:53 AM Ordering Provider: [facility] Discharge instructions 03-30-2023 Note Date & Type Note Facility 03-30-2023 Hospital Discharg e instructions Patient Education 03/30/2023 16:55:30 Self-Care for Sore Throats Self-Care for Sore Throats Sore throats happen for many reasons, such as colds, allergies, and infections caused by viruses or bacteria. In any case, your throat becomes red and sore. Your goal for self-care is to reduce your discomfort while giving your throat a chance to heal. Moisten and soothe your throat Tips include the following: Try a sip of water first thing after waking up. Keep your throat moist by drinking 6 or more glasses of clear liquids every day. Run a cool-air humidifier in your room overnight. Avoid cigarette smoke. Suck on throat lozenges, cough drops, hard candy, ice chips, or frozen fruit-juice bars. Use the sugar-free versions if your diet or medical condition requires them. Gargle to ease irritation Gargling every hour or 2 can ease irritation. Try gargling with 1 of these solutions: 1/4 teaspoon of salt in 1/2 cup of warm water An xlbi-omq-dyyftsg anesthetic gargle Use medicine for more relief Ainw-yjk-gspxlfc medicine can reduce sore throat symptoms. Ask your pharmacist if you have questions about which medicine to use: Ease pain with anesthetic sprays. Aspirin or an aspirin substitute also helps. Remember, never give aspirin to anyone 18 or younger, or if you are already taking blood thinners. For sore throats caused by allergies, try antihistamines to block the allergic reaction. Remember: unless a sore throat is caused by a bacterial infection, antibiotics won t help you. Prevent future sore throats Prevention tips include the following: Stop smoking or reduce contact with secondhand smoke. Smoke irritates the tender throat lining. Limit contact with pets and with allergy-causing substances, such as pollen and mold. When you re around someone with a sore throat or cold, wash your hands often to keep viruses or bacteria from spreading. Don t strain your vocal cords. Contact your healthcare provider if you have: A temperature over 101 F (38.3 C) White spots on the throat Great difficulty swallowing Trouble breathing A skin rash Recent exposure to someone else with strep bacteria Severe hoarseness and swollen glands in the neck or jaw [id number] [employer]. [address] [place] [address]. All rights reserved. This information is not intended as a substitute for professional medical care. Always follow your healthcare professional's instructions. 03/30/2023 16:55:27 Pharyngitis, Report Pending Pharyngitis (Sore Throat), Report Pending Pharyngitis (sore throat) is often due to a virus. It can also be caused by streptococcus (strep), bacteria. This is often called strep throat. Both viral and strep infections can cause throat pain that is worse when swallowing, aching all over, headache, and fever. Both types of infections are contagious. They may be spread by coughing, kissing, or touching others after touching your mouth or nose. A test has been done to find out if you or your child have strep throat. Call this facility or your healthcare provider if you were not given your test results. If the test is positive for strep infection, you will need to take antibiotic medicines. A prescription can be called into your pharmacy at that time. If the test is negative, you probably have a viral pharyngitis. This does not need to be treated with antibiotics. Until you receive the results of the strep test, you should stay home from work. If your child is being tested, he or she should stay home from school. Home care Rest at home. Drink plenty of fluids so you won't get dehydrated. If the test is positive for strep, you or your child should not go to work or school for the first 2 days of taking the antibiotics. After this time, you or your child will not be contagious. You or your child can then return to work or school when feeling better. Use the antibiotic medicine for the full 10 days. Do not stop the medicine even if you or your child feel better. This is very important to make sure the infection is fully treated. It is also important to prevent medicine-resistant germs from growing. If you or your child were given an antibiotic shot, no more antibiotics are needed. Use throat lozenges or numbing throat sprays to help reduce pain. Gargling with warm salt water will also help reduce throat pain. Dissolve 1/2 teaspoon of salt in 1 glass of warm water. Children can sip on juice or a popsicle. Children 5 years and older can also suck on a lollipop or hard candy. Don't eat salty or spicy foods or give them to your child. These can irritate the throat. Other medicine for a child: You can give your child acetaminophen for fever, fussiness, or discomfort. In babies over 6 months of age, you may use ibuprofen instead of acetaminophen. If your child has chronic liver or kidney disease or ever had a stomach ulcer or GI bleeding, talk with your child s healthcare provider before giving these medicines. Aspirin should never be used by any child under 18 years of age who has a fever. It may cause severe liver damage. Other medicine for an adult: You may use acetaminophen or ibuprofen to control pain or fever, unless another medicine was prescribed for this. If you have chronic liver or kidney disease or ever had a stomach ulcer or GI bleeding, talk with your healthcare provider before using these medicines. Follow-up care Follow up with your healthcare provider or our staff if you or your child don't get better over the next week. When to seek medical advice Call your healthcare provider right away if any of these occur: Fever as directed by your healthcare provider. For children, seek care if: oYour child is of any age and has repeated fevers above 104 F (40 C). oYour child is younger than 2 years of age and has a fever of 100.4 F (38 C) for more than 1 day. oYour child is 2 years old or older and has a fever of 100.4 F (38 C) for more than 3 days. New or worsening ear pain, sinus pain, or headache Painful lumps in the back of neck Stiff neck Lymph nodes are getting larger Can t swallow liquids, a lot of drooling, or can t open mouth wide due to throat pain Signs of dehydration, such as very dark urine or no urine, sunken eyes, dizziness Trouble breathing or noisy breathing Muffled voice New rash Other symptoms getting worse Prevention Here are steps you can take to help prevent an infection: Keep good hand washing habits. Don t have close contact with people who have sore throats, colds, or other upper respiratory infections. Don t smoke, and stay away from secondhand smoke. Stay up to date with of your vaccines. 7561-3664 [employer]. [address] [place] [address], [place] [address]. All rights reserved. This information is not intended as a substitute for professional medical care. Always follow your healthcare professional's instructions. Follow Up Care 03/30/2023 16:24:24 With:Call Physician Referral Address:Unknown When:2-4 days Comments:Schedule an appointment for follow-up as needed and to establish a primary care doctor. With:Your [facility] doctor Address:Unknown When:2-4 days Comments:She has an appointment for follow-up if your symptoms or not improving.Check the patient portal later this evening for the results of your strep test and mono test.Push fluids, soft diet.Warm salt water gargles, Chloraseptic spray and throat lozenges for symptomatic relief.Tylenol for pain and fever as needed.If the strep test returns positive then appropriate antibiotics will be phoned into your pharmacy of choice.Return to the ED if symptoms worsen. [facility] Clinical Note 03-30-2023 Note Date & Type Note Facility 03-30-2023 Note Discharge Instructions Thank you for allowing [facility] to assist you with your healthcare needs. The following is important discharge information regarding your hospital visit. Diagnosis from Today's Visit Throat pain - Adult What to Do Next Instructions from Your Care Team No qualifying data available. Post Acute Orders No qualifying data available. You Need to Schedule the Following Appointments Follow Up with Your [facility] doctor When Within 2-4 days Why: She has an appointment for follow-up if your symptoms or not improving. Check the patient portal later this evening for the results of your strep test and mono test. Push fluids, soft diet. Warm salt water gargles, Chloraseptic spray and throat lozenges for symptomatic relief. Tylenol for pain and fever as needed. Return to the ED if symptoms worsen. Allergies predniSONE (Rash) Medications Please ask your primary doctor or pharmacist before taking any other medication not listed, including over the counter drugs, herbal medications, vitamins and or supplements as they may interact with your home medications. What How Much When Instructions Last Dose Unchanged FLUoxetine (FLUoxetine 40 mg oral capsule) 1 cap by mouth Once a day Unchanged ondansetron (ondansetron 4 mg oral tablet, disintegrating) 1 tab(s) by mouth Every 8 hours as needed for as needed for nausea/vomiting Unchanged prochlorperazine (prochlorperazine 10 mg oral tablet) 1 tab(s) by mouth Three (3) times a day as needed for Nausea/Vomiting Unchanged promethazine (Phenergan 25 mg rectal suppository) 1 suppository(ies) in the rectum Every 4 hours Please take this list to your next doctor s visit. Bring all medications you take, including over the counter medications, herbals and other supplements with you to your doctor s visit. Patients and families are reminded to discard old lists and to update any records with all medication providers or retail pharmacies. Education Materials Self-Care for Sore Throats Sore throats happen for many reasons, such as colds, allergies, and infections caused by viruses or bacteria. In any case, your throat becomes red and sore. Your goal for self-care is to reduce your discomfort while giving your throat a chance to heal. Moisten and soothe your throat Tips include the following: Try a sip of water first thing after waking up. Keep your throat moist by drinking 6 or more glasses of clear liquids every day. Run a cool-air humidifier in your room overnight. Avoid cigarette smoke. Suck on throat lozenges, cough drops, hard candy, ice chips, or frozen fruit-juice bars. Use the sugar-free versions if your diet or medical condition requires them. Gargle to ease irritation Gargling every hour or 2 can ease irritation. Try gargling with 1 of these solutions: 1/4 teaspoon of salt in 1/2 cup of warm water An zsxs-miz-kuvvtkl anesthetic gargle Use medicine for more relief Nyrj-aia-koncuig medicine can reduce sore throat symptoms. Ask your pharmacist if you have questions about which medicine to use: Ease pain with anesthetic sprays. Aspirin or an aspirin substitute also helps. Remember, never give aspirin to anyone 18 or younger, or if you are already taking blood thinners. For sore throats caused by allergies, try antihistamines to block the allergic reaction. Remember: unless a sore throat is caused by a bacterial infection, antibiotics won t help you. Prevent future sore throats Prevention tips include the following: Stop smoking or reduce contact with secondhand smoke. Smoke irritates the tender throat lining. Limit contact with pets and with allergy-causing substances, such as pollen and mold. When you re around someone with a sore throat or cold, wash your hands often to keep viruses or bacteria from spreading. Don t strain your vocal cords. Contact your healthcare provider if you have: A temperature over 101 F (38.3 C) White spots on the throat Great difficulty swallowing Trouble breathing A skin rash Recent exposure to someone else with strep bacteria Severe hoarseness and swollen glands in the neck or jaw [id number] [employer] [place] [address]. All rights reserved. This information is not intended as a substitute for professional medical care. Always follow your healthcare professional's instructions. Pharyngitis (Sore Throat), Report Pending Pharyngitis (sore throat) is often due to a virus. It can also be caused by streptococcus (strep), bacteria. This is often called strep throat. Both viral and strep infections can cause throat pain that is worse when swallowing, aching all over, headache, and fever. Both types of infections are contagious. They may be spread by coughing, kissing, or touching others after touching your mouth or nose. A test has been done to find out if you or your child have strep throat. Call this facility or your healthcare provider if you were not given your test results. If the test is positive for strep infection, you will need to take antibiotic medicines. A prescription can be called into your pharmacy at that time. If the test is negative, you probably have a viral pharyngitis. This does not need to be treated with antibiotics. Until you receive the results of the strep test, you should stay home from work. If your child is being tested, he or she should stay home from school. Home care Rest at home. Drink plenty of fluids so you won't get dehydrated. If the test is positive for strep, you or your child should not go to work or school for the first 2 days of taking the antibiotics. After this time, you or your child will not be contagious. You or your child can then return to work or school when feeling better. Use the antibiotic medicine for the full 10 days. Do not stop the medicine even if you or your child feel better. This is very important to make sure the infection is fully treated. It is also important to prevent medicine-resistant germs from growing. If you or your child were given an antibiotic shot, no more antibiotics are needed. Use throat lozenges or numbing throat sprays to help reduce pain. Gargling with warm salt water will also help reduce throat pain. Dissolve 1/2 teaspoon of salt in 1 glass of warm water. Children can sip on juice or a popsicle. Children 5 years and older can also suck on a lollipop or hard candy. Don't eat salty or spicy foods or give them to your child. These can irritate the throat. Other medicine for a child: You can give your child acetaminophen for fever, fussiness, or discomfort. In babies over 6 months of age, you may use ibuprofen instead of acetaminophen. If your child has chronic liver or kidney disease or ever had a stomach ulcer or GI bleeding, talk with your child s healthcare provider before giving these medicines. Aspirin should never be used by any child under 18 years of age who has a fever. It may cause severe liver damage. Other medicine for an adult: You may use acetaminophen or ibuprofen to control pain or fever, unless another medicine was prescribed for this. If you have chronic liver or kidney disease or ever had a stomach ulcer or GI bleeding, talk with your healthcare provider before using these medicines. Follow-up care Follow up with your healthcare provider or our staff if you or your child don't get better over the next week. When to seek medical advice Call your healthcare provider right away if any of these occur: Fever as directed by your healthcare provider. For children, seek care if: oYour child is of any age and has repeated fevers above 104 F (40 C). oYour child is younger than 2 years of age and has a fever of 100.4 F (38 C) for more than 1 day. oYour child is 2 years old or older and has a fever of 100.4 F (38 C) for more than 3 days. New or worsening ear pain, sinus pain, or headache Painful lumps in the back of neck Stiff neck Lymph nodes are getting larger Can t swallow liquids, a lot of drooling, or can t open mouth wide due to throat pain Signs of dehydration, such as very dark urine or no urine, sunken eyes, dizziness Trouble breathing or noisy breathing Muffled voice New rash Other symptoms getting worse Prevention Here are steps you can take to help prevent an infection: Keep good hand washing habits. Don t have close contact with people who have sore throats, colds, or other upper respiratory infections. Don t smoke, and stay away from secondhand smoke. Stay up to date with of your vaccines. 5368-9253 [employer]. [address] [place] [address]. All rights reserved. This information is not intended as a substitute for professional medical care. Always follow your healthcare professional's instructions. Additional Information VACCINATE! IT SAVES LIVES! Members of the community who have not yet received the COVID-19 vaccine and would like to receive it can visit one of [facility] vaccine clinics. There are many vaccine clinic locations within the [facility]. For locations and available times, please visit www.gettheshot.coronavirus.[place].gov/. It is important to note that some COVID mobile vaccine clinics are held outdoors and may be canceled in rainy or stormy conditions. To learn more about pediatric vaccinations (ages 5-11), we invite you to visit the [facility] webpage. [email or web address].[email or web address].org/pages/2 864-Mhsro-Lrumclnhluu-Frequently-Asked -Questions.html To learn more about the COVID-19 vaccine, we invite you to visit the CDC website for a list of frequently asked questions. https://www.cdc.gov/coronavirus/2019-n cov/vaccines/faq.html [facility] Patient Portal Access Instructions: Stay connected with your healthcare team and access your personal medical information anytime with the [facility] Patient Portal. If you would like a full copy of your medical records please contact the [facility] Medical Records Department Thursday through Thursday between 8a.m. and 4:30p.m. Please follow the directions below to access the portal: 1.Access the email account you provided upon registration to the [facility].2.Look for an invitation email from [facility].3.Open the email and access the invitation link: Accept Invitation to [facility]4.Fill in the required mccoy to create your account. Sign into [email or web address] with your username and password that you created in the above steps to stay up to date. You can then view a summary of results, a summary of your visits, and the ability to download your summaries to your computer or send the information securely to a physician. Remember that your healthcare information is confidential, so carefully consider who you will allow to register on the [facility] Patient Portal for access to your information. You can also access the [facility] Patient Portal on the mobicanvas. Simply click on Health Records under Health Data and then click on the [facility] logo. HOW TO SAFELY DISPOSE OF PRESCRIPTION MEDICATIONS Please use one of the following methods to safely dispose of your unused medications. 1.Use a drug disposal kit: the drug disposal pouch allows you to safely discard your old and unused drugs. Ask your nurse to give you one when you are discharged.2.Visit a local take-back location: Many local pharmacies and police departments have programs that collect old and unwanted prescription drugs. Call your local pharmacy or go to http://bit.[employer]/1V1Ex9d to find one close to you.3.Make use of household items: Use cat litter or old coffee grounds to dispose medications if other options are not available. Mix your drugs with these household products, seal them in an airtight container and throw it into the garbage. Call [facility]: [phone] to be sure your drugs can be disposed of in this way. Some medicines may require a different approach.4.Never flush your medications down the toilet. IF YOU HAVE BEEN PRESCRIBED AN OPIOIDS FOR PAIN If you have been prescribed an opioid (such as hydrocodone, oxycodone or morphine), it is critical to understand the possible side effects and risks of opioid pain medications. Even when taken as directed, opioids can have several side effects including: Tolerance, meaning you might need to take more of a medication for the same pain relief. Nausea, vomiting and/or constipation. Sleepiness, dizziness, dry mouth, confusion, depression or itching. Physical dependence, meaning you have withdrawal symptoms when a medication is stopped ? this can develop within a few days. KNOW YOUR RESPONSIBILITIES It is important to know exactly how much and how often to take the opioid pain medications you are prescribed. Never take opioids in higher amounts or more often than prescribed. Do not combine opioids with alcohol or other drugs that cause drowsiness, such as benzodiazepines, also known as benzos, including diazepam and alprazolam, muscle relaxants or sleep aids. Never sell or share prescription opioids. This is illegal. Store opioids in a secure place and out of reach of others (including children, family, friends and visitors). The last page(s) of this document has been signed and retained as a CHART COPY Signatures Patient Education Materials Self-Care for Sore Throats Pharyngitis, Report Pending Medication Leaflets My discharge plan and instructions have been reviewed and explained to me and I,LAURA VALENCIA understand my current condition and have read and understand these discharge instructions. I have received a written copy of the plan/instructions. If I have questions, I am aware that I should contact my doctor. 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: _ Date/Time: Relationship to Patient: Witness Name/Signature: Date/Time: [facility] Evaluation + Plan note Note Date & Type Note Facility Evaluation + Plan note No data available for this section [facility] Summary Purpose Family History No Family History Records FoundNo Family History Records FoundNo Family History Records Found No data available for this section No data available for this section No Family History Records Found Advance Directives No Advanced Directives Records FoundNo Advanced Directives Records FoundNo Advanced Directives Records FoundNo Advanced Directives Records Found Additional Source Comments INFORMATION SOURCE (unrecogn ized section and content) DATE CREATED AUTHOR AUTHOR'S ORGANIZ ATION 11/08/2018 [facility] DATE CREATED AUTHOR AUTHOR'S ORGANIZ ATION 05/05/2020 [facility] DATE CREATED AUTHOR AUTHOR'S ORGANIZ ATION 08/03/2023 [facility] ([place]) Patient Care team informatio n (unrecognized section and content) Care Team Personnel Name: PHYSICIAN, NONE Position: Physician Member Role: Primary Care Physician Name: LIZABETH MENDOZA MD Position: ED Physician Member Role: ED Physician Address: Address: [facility] [address] [place] [address] Name: DANELLE Reedeen Position: AO RN Member Role: ED RN Name: Oralia Gallegos 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 Position: HIM: Coders Member Role: HIM: Coders Care Team Related Persons Name: MATTHEW VALENCIA Name: ROGELIO VALENCIA Address: [address] [place] [address] Name: SILVINA VALENCIA Address: [address] [place] [address] Care Team Personnel Name: SARAHI LIANG MD Member Role: Primary Care Physician Address: Address: [address] [place] [address] Name: HORTENSIA LOUISE DO Position: ED Physician Member Role: Attending Physician Address: Address: [address] [place] [address] Name: Linda Newman RN Position: AO RN Member Role: ED RN Care Team Related Persons Name: MATTHEW VALENCIA Name: ROGELIO VALENCIA Address: [address] [place] [address] Name: SILVINA VALENCIA Address: [address] [place] [address] FOR RECORDS PERTAINING TO PATIENTS WHO ARE OR HAVE BEEN ENROLLED IN A CHEMICAL DEPENDENCY/SUBSTANCEABUSE PROGRAM, SOME INFORMATION MAY BE OMITTED. This clinical summary was aggregated from multiple sources. Caution should be exercised in using it in the provision of clinical care. This summary normalizes information from multiple sources, and as a consequence, information in this document may materially change the coding, format and clinical context of patient data. In addition, data may be omitted in some cases. CLINICAL DECISIONS SHOULD BE BASED ON THE PRIMARY CLINICAL RECORDS. [facility] [employer] [facility]. provides no warranty or guarantee of the accuracy or completeness of information in this document.
[2023-10-30 17:05] LABS: Absolute Lymphocyte Count 1.51 X10^3/uL (0.83-4.51); Basophil# 0.03 X10^3/uL; Basophil% 0.5 % (0-1); Eosinophil# 0.09 X10^3/uL; Eosinophils% 1.4 % (0-5); Hematocrit 38.1 % (37-47); Hemoglobin 12.4 g/dL (12.0-15.0); Lymphocyte # 1.51 X10^3/ul (0.83-4.51); Lymphocyte % 24.2 % (19-41); Mean Corp Hgb Conc 32.5 g/dL (32-36); Mean Corpuscular Hgb 28.8 pg (27.0-32.0); Mean Corpuscular Volume 88.4 fL (81-99); Mean Platelet Vol. 9.4 fl (6.2-12.0); Monocyte% 9.6 % (0-10); NRBC Flagged by Analyzer 0 % (0-5); Neutrophil % 64.1 % (47-70); Platelet Count 371 K/mm3 (150-450); RBC Distribution Width CV 12.8 % (11.6-14.6); RBC Distribution Width SD 41.8 fl (35.1-43.9); Red Blood Count 4.31 M/mm3 (4.2-5.4); White Blood Count 6.2 K/mm3 (4.4-11.0)
[2023-10-30 17:33] LABS: AST(SGOT) 14 U/L (15-37); Alanine Aminotransfer ALT/SGPT 24 U/L (13-56); Albumin, Serum 3.7 g/dL (3.2-5.0); Alkaline Phosphatase 64 U/L (45-117); Anion Gap 6 (5-15); BUN 15 mg/dL (7-18); BUN/Creat Ratio 18.6 RATIO (10-20); Calcium,Total 8.9 mg/dL (8.5-10.1); Chloride 108 mmol/L (98-107); EST Glomerular Filtration Rate 91 mL/min (>60); Est Glom Filt Rate - Afr Amer 110 mL/min (>60); Globulin 3.7 g/dL (2.2-4.2); Glucose 78 mg/dL (74-106); Potassium 3.8 mmol/L (3.5-5.1); Protein, Total 7.4 g/dL (6.4-8.2); Sodium Level 140 mmol/L (136-145); T4 Free Direct 0.93 ng/dL (0.76-1.46); Thyroid Stim Hormone (TSH) 0.91 uIU/mL (0.358-3.74)
== END | disposition home or self-care (01) ==
PROVIDERS: PCP Internal Medicine; Referring Provider Nurse Practitioner Women's Health; Visit Provider Nurse Practitioner Women's Health
DX: K59.09 Other constipation (principal); R10.2 Pelvic and perineal pain
CPT/HCPCS: 36415; 76830; 80053; 84439; 84443; 85025

== ENCOUNTER → 2023-11-02 | Outpatient (CLI) | payer MEDICAID, SELFPAY ==
--- OUTSIDE RECORDS SUMMARY | 2023-11-02 10:14 | XMS RPT_ITS | CCD ---
Author Name Unknown Address [address] [place] [address] Organization [facility] Care Team Providers Care Line Puller Name Role Phone Jeffery Hein Unavailable Unavailable [...] Physician UnavailSARAHI Solo MD Primary Care Physician [phone] LIZABETH MENDOZA MD Attending Unavailable PHYSICIAN, NONE Primary Care Unavailable HORTENSIA LOUISE DO Attending Unavailable SARAHI LIANG MD Primary Care Unavailab macdonald Allergies Allergy Classification Reported Allergen(s) Allergy Type Date of Onset Reaction(s) Facility (2 sources) predniSONE; Translations: [prednisone] Drug Allergy Eruption of skin (disorder) [facility] Medications Current Medications Medication Drug Class(es) [...] 12:10-0500 Blood Pressure Location NIDAL CHOUJAA DO [facility] 07-27-2023 12:10-0500 Blood Pressure Method NIDAL CHOUJAA DO [facility] 07-27-2023 12:10-0500 Diastolic Blood Pressure Non-Invasive 82 mm[Hg] NIDAL CHOUJAA DO [facility] 07-27-2023 12:10-0500 Heart rate 84 /min NIDAL CHOUJAA DO [facility] 07-27-2023 12:10-0500 Respiratory rate 18 /min NIDAL CHOUJAA DO [facility] 07-27-2023 12:10-0500 Systolic Blood Pressure Non-Invasive 132 mm[Hg] NIDAL CHOUJAA DO [facility] 07-27-2023 08:20-0500 Blood Pressure Cuff Size NIDAL CHOUJAA DO [facility] 07-27-2023 08:20-0500 Blood Pressure Location NIDAL CHOUJAA DO [facility] 07-27-2023 08:20-0500 Blood Pressure Method NIDAL CHOUJAA DO [facility] 07-27-2023 08:20-0500 Body height 167.6 cm NIDAL CHOUJAA DO [facility] 07-27-2023 08:20-0500 Body temperature 97.7 [degF] NIDAL CHOUJAA DO [facility] 07-27-2023 08:20-0500 Body weight 90.9 kg NIDAL CHOUJAA DO [facility] 07-27-2023 08:20-0500 Diastolic Blood Pressure Non-Invasive 81 mm[Hg] NIDAL CHOUJAA DO [facility] 07-27-2023 08:20-0500 Heart rate 82 /min NIDAL CHOUJAA DO [facility] 07-27-2023 08:20-0500 Respiratory rate 18 /min NIDAL CHOUJAA DO [facility] 07-27-2023 08:20-0500 Systolic Blood Pressure Non-Invasive 133 mm[Hg] NIDAL CHOUJAA DO [facility] 03-30-2023 16:25-0400 Body temperature 98.42 [degF] LIZABETH MENDOZA MD [facility] 03-30-2023 16:25-0400 Body weight 99.5 kg LIZABETH MENDOZA MD [facility] 03-30-2023 16:25-0400 Diastolic Blood Pressure Non-Invasive 64 1 LIZABETH MENDOZA MD [facility] 03-30-2023 16:25-0400 Heart rate 116 /min LIZABETH MENDOZA MD [facility] 03-30-2023 16:25-0400 Respiratory rate 16 /min LIZABETH MENDOZA MD [facility] 03-30-2023 16:25-0400 Systolic Blood Pressure Non-Invasive 117 1 LIZABETH MENDOZA MD [facility] Encounters Encounter Date Encounter Type Care Provider Facility Start: 07-27-2023 End: 07-27-2023 Emergency department patient visit HORTENSIA LOUISE DO Facility:B Start: 07-27-2023 End: 07-27-2023 Emergency department patient visit HORTENSIA LOUISE DO [facility] Start: 03-30-2023 End: 03-30-2023 Emergency department patient visit LIZABETH MENDOZA MD Facility:[facility] Start: 03-30-2023 End: 03-30-2023 Emergency department patient visit LIZABETH MENDOZA MD [facility] Start: 11-08-2018 End: 11-08-2018 Patient encounter procedure EUGENE COSBY [facility] Start: 10-22-2018 End: 10-22-2018 Patient encounter procedure KATELYN BEAVER [facility] Start: 04-27-2018 Patient encounter CHHAYALESLIE WHITLOCKCHARITY [facility] Start: 04-20-2018 Patient encounter CHHAYALESLIE BHATTKSARABELLA [facility] Start: 03-10-2018 Patient encounter Jeffery Hein [facility] Start: 02-01-2018 Patient encounter procedure CHITO AMANDA [facility] Start: 01-11-2018 End: 01-12-2018 [facility]: 12-30-2017 End: 12-30-2017 [facility] Payers Date Payer Category Payer Unknown [id number] 1996 Unknown [id number] [id number] [id number] 1996 Unknown [id number] 2.16.8 [id number] 1996 Unknown [id number] 2.16.8 [id number] 1996 Unknown [id number] 2.16.8 [id number] 1996 Unknown [id number] 2.16.8 [id number] 1996 Unknown [id number] 2.16.8 [id number] 1996 Unknown [id number] 2.16.8 [id number] Unknown Unknown [id number] Social History Date Type Detail Facility Tobacco smoking status No Smoking Status Entered [facility] Sex Assigned At Female [facility] Functional Status Date Assessment Result Facility 07-27-2023 Functional Status Repositions self [facility] 07-27-2023 Functional Status Room check performed [facility] 03-30-2023 Functional Status ID band on, Allergy Band on, Call device within reach, Bed in low position, Wheels locked, personal items within reach [facility] Mental Status Date Assessment Result [facility] 07-27-2023 Mental Status Orientation Oriented x 4 [facility] 07-27-2023 Mental Status [facility] 03-30-2023 Mental Status Oriented x 4 [facility] Discharge instructions 07-27-2023 Note Date & [...] hot shower. Use medicines Aspirin or other kfcl-oqv-zmmiaju pain medicines, such as ibuprofen and acetaminophen, [...] the worst headache you have ever had. [phone] [facility]. [address] [place] [address]. All rights reserved. This information is not [...] face You have trouble talking or seeing [phone] [facility]. [address] [place] [address]. All rights reserved. This information is not intended as a substitute for professional medical care. Always follow your healthcare professional's instructions. Follow Up Care 07/27/2023 08:11:40 With:SARAHI LIANG MD Address: [facility] [place] [address]- [phone] When:2-4 days [facility] Clinical Note 07-27-2023 Note Date & Type Note Facility 07-27-2023 Note Discharge Instructions Thank you for allowing [facility] to assist you with your healthcare needs. [...] LIANG MD When Within 2-4 days Where: [facility] [place] [address]- [phone] Allergies predniSONE (Rash) Medications Please ask your [...] hot shower. Use medicines Aspirin or other pcmo-jdb-jqrhgak pain medicines, such as ibuprofen and acetaminophen, [...] the worst headache you have ever had. [phone] [facility]. [address] [place] [address], [place] [address]. All rights reserved. This information is not [...] face You have trouble talking or seeing [phone] [facility]. [address] [place] [address]. All rights reserved. This information is not intended as a substitute for professional medical care. Always follow your healthcare professional's instructions. Additional Information VACCINATE! IT SAVES LIVES! Members of the community who have not yet received the COVID-19 vaccine and would like to receive it can visit one of [facility] vaccine clinics. There are many vaccine clinic locations within the [facility]. For locations and available times, please visit www.[email or web address].[place].gov/. It is important to note that some COVID mobile vaccine clinics are held outdoors and may be canceled in rainy or stormy conditions. To learn more about pediatric vaccinations (ages 5-11), we invite you to visit the [facility] webpage. https://www.[facility].org/pages/2 141-Jkvdr-Tgvupfsisgj-Frequently-Asked -Questions.html To learn more about the COVID-19 vaccine, we invite you to visit the CDC website for a list of frequently asked questions. https://www.cdc.gov/coronavirus/2019-n cov/vaccines/faq.html [facility] [employer] Patient Portal Access Instructions: Stay connected with your healthcare team and access your personal medical information anytime with the [employer] Patient Portal. If you would like a full copy of your medical records please contact the [facility] Medical Records Department Thursday through Thursday between 8a.m. and 4:30p.m. Please follow the directions below to access the portal: 1.Access the email account you provided upon [facility] to the [facility].2.Look for an invitation email from [facility].3.Open the email and access the invitation link: Accept Invitation to [employer]4.Fill in the required mccoy to create your account. Sign into [email or web address] [employer]) with your username and password that you [...] you will allow to register on the [employer] Patient Portal for access to your information. You can also access the [employer] Patient Portal on the [employer]ley. Simply click on Health Records under Health Data and then click on the [employer] logo. HOW TO SAFELY DISPOSE OF PRESCRIPTION [...] Call your local pharmacy or go to http://bit.[employer]/3V2Dl2z to find one close to you.3.Make use of household items: Use cat litter or old coffee grounds to dispose medications if other options are not available. Mix your drugs with these household products, seal them in an airtight container and throw it into the garbage. Call [facility]: [phone] to be sure your drugs can be [...] aware that I should contact my doctor. Patient/Mail Carrier And Clerk Signature: _ Date/Time: Relationship to Patient: Witness Name/Signature: Date/Time: [facility] Pamela Sotelo Clinical Note 07-27-2023 Note [...] 2-4 days Where: [address] [place] [address]- [phone] Allergies predniSONE (Rash) Medications Please ask your [...] hot shower. Use medicines Aspirin or other oixf-api-rrvnogl pain medicines, such as ibuprofen and acetaminophen, [...] the worst headache you have ever had. [phone] [facility]. [address] [place], [place] [id number]. All rights reserved. This information is not [...] face You have trouble talking or seeing [phone] [facility]. [address] [place] [address]. All rights reserved. This information is not intended as a substitute for professional medical care. Always follow your healthcare professional's instructions. Additional Information VACCINATE! IT SAVES LIVES! Members of the community who have not yet received the COVID-19 vaccine and would like to receive it can visit one of [facility] vaccine clinics. There are many vaccine clinic locations within the [facility]. For locations and available times, please visit www.gettheshot.coronavirus.[place].gov/. It is important to note that some COVID mobile vaccine clinics are held outdoors and may be canceled in rainy or stormy conditions. To learn more about pediatric vaccinations (ages 5-11), we invite you to visit the [facility] webpage. https://www.[facility].org/pages/2 375-Tzusn-Lturytpbedf-Frequently-Asked -Questions.html To learn more about the COVID-19 vaccine, we invite you to visit the CDC website for a list of frequently asked questions. https://www.cdc.gov/coronavirus/2019-n cov/vaccines/faq.html [facility] [employer] Patient Portal Access Instructions: Stay connected with your healthcare team and access your personal medical information anytime with the [facility] [employer] Patient Portal. If you would like a full copy of your medical records please contact the [facility] Medical Records Department Thursday through Thursday between 8a.m. and 4:30p.m. Please follow the directions below to access the portal: 1.Access the email account you provided upon registration to the [facility].2.Look for an invitation email from [facility].3.Open the email and access the invitation link: Accept Invitation to [employer]4.Fill in the required mccoy to create your account. Sign into [email or web address] ([employer]) with your username and password that you [...] you will allow to register on the [employer] Patient Portal for access to your information. You can also access the [employer] Patient Portal on the [employer]. Simply click on Health Records under Health Data and then click on the [employer] logo. HOW TO SAFELY DISPOSE OF PRESCRIPTION [...] Call your local pharmacy or go to http://[employer] Group/7S8Xe8q to find one close to you.3.Make use of household items: Use cat litter or old coffee grounds to dispose medications if other options are not available. Mix your drugs with these household products, seal them in an airtight container and throw it into the garbage. Call [facility]: [phone] to be sure your drugs can be [...] aware that I should contact my doctor. Patient/Mail Carrier And Clerk Signature: _ Date/Time: Relationship to Patient: Witness Name/Signature: Date/Time: [facility] Clinical Note 07-27-2023 Note Date & [...] Sign Date: 07/27/2023 10:56:53 AM Ordering Provider: [facility] Discharge instructions 03-30-2023 Note Date & Type [...] in 1/2 cup of warm water An wobl-yle-wwowuwc anesthetic gargle Use medicine for more relief Pref-ltx-gtgwkaz medicine can reduce sore throat symptoms. Ask [...] swollen glands in the neck or jaw [phone] [facility]. [address] [place] [address]. All rights reserved. This information is not [...] up to date with of your vaccines. [phone] [facility]. [address] [place] [address], [place] [address]. All rights reserved. This information is not intended as a substitute for professional medical care. Always follow your healthcare professional's instructions. Follow Up Care 03/30/2023 16:24:24 With:Call Physician Referral Address:Unknown When:2-4 days Comments:Schedule an appointment for follow-up as needed and to establish a primary care doctor. With:Your CUSTOM TAILOR APPRENTICE doctor Address:Unknown When:2-4 days Comments:She has an [...] choice.Return to the ED if symptoms worsen. [facility] Clinical Note 03-30-2023 Note Date & Type Note Facility 03-30-2023 Note Discharge Instructions Thank you for allowing [facility] to assist you with your healthcare needs. The following is important discharge information regarding your hospital visit. Diagnosis from Today's Visit Throat pain - Adult What to Do Next Instructions from Your Care Team No qualifying data available. Post Acute Orders No qualifying data available. You Need to Schedule the Following Appointments Follow Up with Your CUSTOM TAILOR APPRENTICE doctor When Within 2-4 days Why: She [...] in 1/2 cup of warm water An saqe-uja-mylhpvl anesthetic gargle Use medicine for more relief Tjqr-utd-kmtacwr medicine can reduce sore throat symptoms. Ask [...] swollen glands in the neck or jaw 6490-0468 [employer]. [address] [place] [address]. All rights reserved. This information is not [...] up to date with of your vaccines. [phone] [facility]. [address] [place] [address]. All rights reserved. This information is not intended as a substitute for professional medical care. Always follow your healthcare professional's instructions. Additional Information VACCINATE! IT SAVES LIVES! Members of the community who have not yet received the COVID-19 vaccine and would like to receive it can visit one of [facility] vaccine clinics. There are many vaccine clinic locations within the [facility]. For locations and available times, please visit www.gettheshot.coronavirus.[place].gov/. It is important to note that some COVID mobile vaccine clinics are held outdoors and may be canceled in rainy or stormy conditions. To learn more about pediatric vaccinations (ages 5-11), we invite you to visit the [facility] webpage. https://www.[facility].org/pages/2 564-Xbajn-Xtrcifrugbo-Frequently-Asked -Questions.html To learn more about the COVID-19 vaccine, we invite you to visit the CDC website for a list of frequently asked questions. https://www.cdc.gov/coronavirus/2019-n cov/vaccines/faq.html [employer] Patient Portal Access Instructions: Stay connected with your healthcare team and access your personal medical information anytime with the [employer] Patient Portal. If you would like a full copy of your medical records please contact the [facility] Medical Records Department Thursday through Thursday between 8a.m. and 4:30p.m. Please follow the directions below to access the portal: 1.Access the email account you provided upon registration to the [facility].2.Look for an invitation email from [facility].3.Open the email and access the invitation link: Accept Invitation to [employer]4.Fill in the required mccoy to create your account. Sign into [email or web address] ([employer]) with your username and password that you [...] you will allow to register on the [employer] Patient Portal for access to your information. You can also access the [employer] Patient Portal on the [employer]. Simply click on Health Records under Health [...] Call your local pharmacy or go to http://bit.[employer] Group/1I0Jz3u to find one close to you.3.Make use of household items: Use cat litter or old coffee grounds to dispose medications if other options are not available. Mix your drugs with these household products, seal them in an airtight container and throw it into the garbage. Call [facility]: [phone] to be sure your drugs can be [...] aware that I should contact my doctor. Patient/Mail Carrier And Clerk Signature: _ Date/Time: Relationship to Patient: Witness Name/Signature: Date/Time: [facility] Evaluation + Plan note Note Date & Type Note Facility Evaluation + Plan note No data available for this section [facility] Summary Purpose Family History No Family [...] DATE CREATED AUTHOR AUTHOR'S ORGANIZ ATION 11/08/2018 [facility] DATE CREATED AUTHOR AUTHOR'S ORGANIZ ATION 05/05/2020 [facility] DATE CREATED AUTHOR AUTHOR'S ORGANIZ ATION 08/03/2023 [facility] ([place]) Patient Care team informatio n (unrecognized section and content) Care Team Personnel Name: PHYSICIAN, NONE Position: Physician Member Role: Primary Care Physician Name: LIZABETH MENDOZA MD Position: ED Physician Member Role: ED Physician Address: Address: [facility] [address] [place] [address] Name: DANELLE Reedeen Position: AO RN Member Role: ED RN Name: Oralia Gallegos clay molder Position: HIM: Coders Member Role: HIM: Coders Care Team Related Persons Name: MATTHEW VALENCIA Name: ROGELIO VALENCIA Address: [address] [place] [address] Name: SILVINA VALENCIA Address: [address] [place] [address] Care Team Personnel Name: SARAHI LIANG MD Member Role: Primary Care Physician Address: Address: [address] [place] [address] Name: HORTENSIA LOUISE DO Position: ED Physician Member Role: Attending Physician Address: Address: [address] [place] [address] Name: Linda Newman RN Position: AO RN Member Role: ED RN Care Team Related Persons Name: MATTHEW VALENCIA Name: ROGELIO VALENCIA Address: [address] [place] [address] Name: SILVINA VALENCIA Address: [address] [place] [address] FOR RECORDS PERTAINING TO PATIENTS WHO ARE [...] BE BASED ON THE PRIMARY CLINICAL RECORDS. [facility] [employer] [facility]. provides no warranty or guarantee of the accuracy or completeness of information in this document.
[2023-11-02 10:19] LABS: Absolute Lymphocyte Count 1.76 X10^3/uL (0.83-4.51); Absolute Neutrophil Count 2.9 X10^3/uL (2.0-7.7); Basophil# 0.03 X10^3/uL; Basophil% 0.6 % (0-1); Eosinophil# 0.06 X10^3/uL; Eosinophils% 1.2 % (0-5); Hematocrit 41.6 % (37-47); Hemoglobin 13.5 g/dL (12.0-15.0); Lymphocyte # 1.76 X10^3/ul (0.83-4.51); Lymphocyte % 34.9 % (19-41); Mean Corp Hgb Conc 32.5 g/dL (32-36); Mean Corpuscular Hgb 28.7 pg (27.0-32.0); Mean Corpuscular Volume 88.3 fL (81-99); Mean Platelet Vol. 8.9 fl (6.2-12.0); Monocyte# 0.31 X10^3/uL; Monocyte% 6.1 % (0-10); NRBC Flagged by Analyzer 0 % (0-5); Neutrophil # 2.88 X10^3/uL (2.7-7.7); Platelet Count 390 K/mm3 (150-450); RBC Distribution Width CV 12.6 % (11.6-14.6); Red Blood Count 4.71 M/mm3 (4.2-5.4); White Blood Count 5.1 K/mm3 (4.4-11.0)
[2023-11-02 10:48] LABS: T4 Free Direct 0.99 ng/dL (0.76-1.46); Thyroid Stim Hormone (TSH) 0.92 uIU/mL (0.358-3.74)
[2023-11-03 04:07] LABS: Thyroid Peroxidase AB 10 IU/mL (0-34)
== END | disposition home or self-care (01) ==
PROVIDERS: PCP Internal Medicine; Referring Provider Nurse Practitioner Women's Health; Visit Provider Nurse Practitioner Women's Health
DX: N93.9 Abnormal uterine and vaginal bleeding, unspecified (principal); Z13.29 Encounter for screening for other suspected endocrine disorder
CPT/HCPCS: 36415; 84439; 84443; 85025; 86376

== ENCOUNTER → 2024-01-12 | Outpatient (CLI) | payer MEDICAID, SELFPAY ==
--- NOTE | 2024-01-12 08:50 | US_ITS ---
STUDY: ULTRASOUND BREAST - LEFT REASON FOR EXAM: Female, 28 years old. Palpable mass TECHNIQUE: Axial and longitudinal images of the LEFT breast were performed with a high resolution ultrasound transducer. # OF IMAGES: 8 COMPARISON: None. FINDINGS: LEFT Breast: Multiple longitudinal and transverse ultrasound images of the left axilla confirm a 0.2 x 0.8 cm oval hypoechoic area within the skin likely dermatological origin.: US/Breast Limited Unilateral IMPRESSION: Ultrasound confirms a 0.8 cm ill-defined hypoechoic area within the skin likely dermatological origin. ASSESSMENT CATEGORY: BIRADS Category 2: Benign. A letter regarding these results will be sent to the patient by the facility within 30 days. Electronically Signed: Carlos Roberts MD at 11:25 EDT ,
== END | disposition home or self-care (01) ==
PROVIDERS: PCP Internal Medicine; Referring Provider Nurse Practitioner Family; Visit Provider Nurse Practitioner Family
DX: N63.20 Unspecified lump in the left breast, unspecified quadrant (principal)
CPT/HCPCS: 76642

== ENCOUNTER → 2024-02-23 | Outpatient (CLI) | payer MEDICAID, SELFPAY ==
[2024-02-23 18:09] LABS: hCG Titer Quant., Serum 12 mIU/mL (1-3)
== END | disposition home or self-care (01) ==
LOC: LAB 16:46
PROVIDERS: PCP Internal Medicine; Referring Provider Advanced Practice Midwife; Visit Provider Advanced Practice Midwife
DX: Z34.90 Encounter for supervision of normal pregnancy, unspecified, unspecified trimester (principal)
CPT/HCPCS: 36415; 84702

== ENCOUNTER 2024-02-25 15:40 | Emergency (ER) | payer OTHER, MEDICAID, SELFPAY ==
[2024-02-25 15:41] VITALS: BP 146/84; PULSE 85; RESP 18; TEMP 36.1; O2SAT 99; BMI 38.8
--- NOTE | 2024-02-25 16:01 | EX.ED.DYSGE1 ---
HPI <LIBERTY Slois - Last Filed: 02/25/24 18:17> History of Present Illness Chief Complaint: Abd Pain Narrative Narrative: Patient presenting today due to pain across her lower pelvis, nausea, and vomiting. She reports that the pain started yesterday and initially was on the left side but today has been more prominent on the right. The pain comes and goes. She also had a few episodes of nausea and vomiting last night which seems to have resolved. Several days ago she did take a urine test which came back positive, she then followed with Dr. Villasenor and had a serum quant obtained which came back at 12. She was told to have this repeated in 2 days. She is unsure when her last menstrual period was, she had a IUD in place which was removed in December and has not yet had her period since. She has had 5 pregnancies with 3 live births and 1 miscarriage. She denies any vaginal bleeding, fevers, chills, and urinary symptoms. PFSH <LIBERTY Solis - Last Filed: 02/25/24 18:17> [facility] Medical History Chronic constipation Bipolar 2 disorder History of blood transfusion Anxiety Acute pharyngitis, unspecified (spontaneous vaginal delivery) hemorrhage Chronic hypertension affecting Depression Home Medications ?Medication ?Instructions ?Recorded ?Last Taken ?Type vitamin#30 30 mg iron-10 1 cap PO DAILY Check with primary 09/02/18 05/08/23 21:00 History mg iron-folic acid 1 mg-omg3 doctor capsule ondansetron 4 mg disintegrating 4 mg PO Q8H PRN PRN Nausea #10 tabs 02/25/24 Unknown Rx tablet Allergy/AdvReac Type Severity Reaction Status Date / Time prednisone Allergy Intermediate Rash Verified 02/25/24 15:41 Family History Unknown Diabetes Grandmother Breast cancer Aunt Breast cancer, Onset Age: 35 Mother Colon cancer, Onset Age: 47 Surgical History History of gynecologic surgery History of hysterosalpingogram Social History adopted: No household members: spouse and children housing: house number of children: 3 current occupational status: employed 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 current occupational exposures/hazards: No pets and animals: Yes (not managing litterbox) pets and animals: cat(s) and dog(s) history of recent travel: No sexually active: Yes Smoking Status: Never smoker alcohol intake: never substance use type: does not use well-balanced diet: daily or most days caffeine: No eating out: rarely or never during the past year weight has: remained stable what type of physical activity do you participate in: none nae/voodoo: Bahai seatbelt use: always do you feel safe at home: Yes additional social history: [employer] ROS <LIBERTY Solis - Last Filed: 02/25/24 18:17> ROS ED Constitutional Constitutional ED: Denies chills or fever(s) Cardiovascular Cardiovascular: Denies chest pain Respiratory/Chest Respiratory/Chest: Denies cough or dyspnea Gastrointestinal Gastrointestinal: Reports abdominal pain, nausea and vomiting; Denies diarrhea Genitourinary Genitourinary ED: Denies dysuria, hematuria or urinary urgency Musculoskeletal Musculoskeletal: Denies arthralgias or myalgias Integumentary Denies rash Neurologic Neurologic: Denies weakness EXAM <LIBERTY Solis - Last Filed: 02/25/24 18:17> Physical Exam Const Vital Signs: 02/25/24 15:41 02/25/24 17:12 Temperature 96.9 F L 96.9 F L Temperature Source Temporal Pulse Rate 85 71 Respiratory Rate 18 14 Blood Pressure 146/84 H 124/78 H Blood Pressure Mean 104 93 Pulse Ox 99 99 Oxygen Delivery Method Room Air Positive well nourished, well developed and no apparent distress General Appearance ED: well developed HEENT Reports normocephalic and head/scalp atraumatic Mouth ED: Yes moist mucous membranes normal Eyes PERRL and EOMs intact bilaterally Neck full ROM and supple Chest Wall inspection of chest normal Resp normal respiratory effort and clear to auscultation bilaterally Cardio regular rate and regular rhythm GI soft to palpation, non-distended and no masses GI Narrative: Minimal right pelvic tenderness to palpation without any rigidity or guarding. Back/Spine normal ROM and normal to inspection Extremity normal to inspection and full ROM Neuro oriented x3, CN's II-XII intact bilaterally, moves all extremities, no focal motor deficits and no sensory deficits noted Sensorium / Orientation: awake and alert Psych mental status grossly normal and thought process normal Skin no rashes or lesions noted and no wounds <Dr. Leonard Zavala DO - Last Filed: 02/25/24 17:34> Physical Exam Const Vital Signs: 02/25/24 15:41 02/25/24 17:12 Temperature 96.9 F L 96.9 F L Temperature Source Temporal Pulse Rate 85 71 Respiratory Rate 18 14 Blood Pressure 146/84 H 124/78 H Blood Pressure Mean 104 93 Pulse Ox 99 99 Oxygen Delivery Method Room Air MDM <LIBERTY Solis - Last Filed: 02/25/24 18:17> [facility] MDM Narrative Medical decision making narrative: Patient presenting today due to lower pelvic pain that started yesterday, initially it was on the left side but today seems to be more on the right. She had a hCG quant obtained two days ago that came back at 12, this was repeated today and is 6. CBC, BMP, and UA are unremarkable. Her examination is not consistent with a kidney stone. Her abdomen is nonsurgical, I do not feel that any abdominal imaging is indicated at this time. Given her hCG level is still low I do not feel a transvaginal ultrasound is going to be beneficial. I did offer nausea medication here but she declined, she was given a prescription for Zofran. She will be discharged in stable condition. I did encourage that she follow-up with OB. Lab Data Labs: Laboratory Results - last 24 hr 02/25/24 02/25/24 16:07 16:25 WBC 6.9 RBC 4.39 Hgb 12.2 Hct 37.5 MCV 85.4 MCH 27.8 MCHC 32.5 RDW Std Deviation 40.1 RDW Coeff of Ibeth 12.9 Plt Count 380 MPV 9.1 Immature Gran % (Auto) 0.300 Neut % (Auto) 67.1 Lymph % (Auto) 21.2 [place] % (Auto) 8.8 Eos % (Auto) 2.2 Baso % (Auto) 0.4 Absolute Neuts (auto) 4.7 Absolute Lymphs (auto) 1.47 Nucleated RBC % 0 Sodium 140 Potassium 3.6 Chloride 108 H Carbon Dioxide 25.0 Anion Gap 7 BUN 11 Creatinine 0.69 Estim Creat Clear Calc 153.19 Est GFR (MDRD) Af Amer 131 Est GFR (MDRD) Non-Af 108 BUN/Creatinine Ratio 16.0 Glucose 87 Calcium 9.0 HCG, Quant 6 H Urine Color Yellow Urine Clarity Sl. Cloudy Urine pH 6.5 Ur Specific [place] 1.010 Urine Protein Negative Urine Glucose (UA) Normal Urine Ketones Negative Urine Occult Blood Negative Urine Nitrite Negative Urine Bilirubin Negative Urine Urobilinogen Normal Ur Leukocyte Esterase Negative Urine RBC 0 SEEN Urine WBC 0 SEEN Ur Squamous Epith Cells 0-5 SEEN Urine Bacteria 0 SEEN Urine Mucus 0 SEEN <Dr. Leonard Zavala, DO - Last Filed: 02/25/24 17:34> MDM History & Record Review Discussion w/independent historian: Patient Lab Data Attestation: I reviewed the patient's lab results. Labs: Laboratory Results - last 24 hr 02/25/24 02/25/24 16:07 16:25 WBC 6.9 RBC 4.39 Hgb 12.2 Hct 37.5 MCV 85.4 MCH 27.8 MCHC 32.5 RDW Std Deviation 40.1 RDW Coeff of Ibeth 12.9 Plt Count 380 MPV 9.1 Immature Gran % (Auto) 0.300 Neut % (Auto) 67.1 Lymph % (Auto) 21.2 [place] % (Auto) 8.8 Eos % (Auto) 2.2 Baso % (Auto) 0.4 Absolute Neuts (auto) 4.7 Absolute Lymphs (auto) 1.47 Nucleated RBC % 0 Sodium 140 Potassium 3.6 Chloride 108 H Carbon Dioxide 25.0 Anion Gap 7 BUN 11 Creatinine 0.69 Estim Creat Clear Calc 153.19 Est GFR (MDRD) Af Amer 131 Est GFR (MDRD) Non-Af 108 BUN/Creatinine Ratio 16.0 Glucose 87 Calcium 9.0 HCG, Quant 6 H Urine Color Yellow Urine Clarity Sl. Cloudy Urine pH 6.5 Ur Specific [place] 1.010 Urine Protein Negative Urine Glucose (UA) Normal Urine Ketones Negative Urine Occult Blood Negative Urine Nitrite Negative Urine Bilirubin Negative Urine Urobilinogen Normal Ur Leukocyte Esterase Negative Urine RBC 0 SEEN Urine WBC 0 SEEN Ur Squamous Epith Cells 0-5 SEEN Urine Bacteria 0 SEEN Urine Mucus 0 SEEN Treatment and Re-Evaluation :: I have personally performed a face to face assessment of the patient and have reviewed the RAQUEL Note. I performed a substantive portion of the visit including all aspects of the following. My mon findings include: History is 28-year-old female presenting to the emergency room with vomiting and abdominal pain. Patient states that she began to have some pain last evening that has moved from the left to the right side of her abdomen. She notes a positive test 2 days ago. At that time her quantitative hCG was 12. She has not had any vaginal bleeding leakage of fluid fevers dysuria. Exam is mild tenderness to palpation right lower side of her abdomen without guarding or rebound. I would not characterize this is a surgical abdomen. She clinically appears well. Medical Decison Making white count 6.9 with a normal hemoglobin. Normal BMP and negative urine. I do not believe we will see much on any pelvic ultrasound.. I doubt with an hCG level of 12 would have a significant ectopic . She is not having fever elevated white count vaginal discharge to suspect tubo-ovarian abscess or other infectious pelvic etiologies at this time. It is February 24 ultrasound is not readily available here in the department. Patient is comfortable with an outpatient follow-up. We encouraged her to follow-up with obstetrics/gynecology. Monitor for worsening symptoms return if worsening or concerns Discharge Plan Triage Chief Complaint: Abd Pain ED Midlevel Provider: Miriam Rucker ED Provider: Leonard Zavala Dx/Rx/DC Orders Clinical Impression: Abdominal pain, Nausea & vomiting Instructions: Abdominal Pain, ED Vomiting (Adult) Prescriptions: New ondansetron 4 mg tablet,disintegrating 4 mg PO Q8H PRN PRN (Reason: Nausea) Qty: 10 0RF No Action PNV #[id number] 30 mg iron-10 mg iron-1 mg capsule 1 cap PO DAILY Primary Care Provider: Marco Romano Referrals: Marco Romano MD [Primary Care Provider] - Activity Restrictions/Additional Instructions: Please follow-up with [facility] to have levels rechecked, return for any worsening of your symptoms. Print Language: Burkinan Disposition Disposition: Home, Self Care Discharge Date/Time: 02/25/24 17:16
[2024-02-25] MEDS: 0.9% Normal Saline (1000mL) 1,000 ML 999 ML IV (16:15)
[2024-02-25 16:16] LABS: Absolute Lymphocyte Count 1.47 X10^3/uL (0.83-4.51); Absolute Neutrophil Count 4.7 X10^3/uL (2.0-7.7); Basophil# 0.03 X10^3/uL; Basophil% 0.4 % (0-1); Eosinophil# 0.15 X10^3/uL; Eosinophils% 2.2 % (0-5); Hematocrit 37.5 % (37-47); Hemoglobin 12.2 g/dL (12.0-15.0); Lymphocyte # 1.47 X10^3/ul (0.83-4.51); Lymphocyte % 21.2 % (19-41); Mean Corp Hgb Conc 32.5 g/dL (32-36); Mean Corpuscular Hgb 27.8 pg (27.0-32.0); Mean Corpuscular Volume 85.4 fL (81-99); Mean Platelet Vol. 9.1 fl (6.2-12.0); Monocyte# 0.61 X10^3/uL; Monocyte% 8.8 % (0-10); NRBC Flagged by Analyzer 0 % (0-5); Neutrophil # 4.66 X10^3/uL (2.7-7.7); Neutrophil % 67.1 % (47-70); Platelet Count 380 K/mm3 (150-450); RBC Distribution Width CV 12.9 % (11.6-14.6); RBC Distribution Width SD 40.1 fl (35.1-43.9); Red Blood Count 4.39 M/mm3 (4.2-5.4); White Blood Count 6.9 K/mm3 (4.4-11.0)
[2024-02-25 16:29] LABS: Bacteria 0 SEEN /hpf (None Seen); Mucous, Urine 0 SEEN /hpf (<or=2+); Red Blood Cells-Urine 0 SEEN /hpf (0-5); White Blood Cells 0 SEEN /hpf (0-5)
[2024-02-25 16:31] LABS: Color, Urine Yellow (Yellow); Glucose, Dipstick Normal (Normal); Ketone-Dipstick Negative (Negative); Leukocyte Esterase-Dipstick Negative /ul (Negative); Nitrite-Dipstick Negative (Negative); Occult Blood-Urine Negative /ul (Negative); Protein-Dipstick Negative (Negative); Urine Bilirubin Dipstick Negative (Negative); Urine Clarity Sl. Cloudy (Clear); Urine Urobilinogen Normal (Normal); Urine pH 6.5 (5.0 - 8.0)
[2024-02-25 16:36] LABS: Anion Gap 7 (5-15); BUN 11 mg/dL (7-18); Chloride 108 mmol/L (98-107); Creatinine, Serum 0.69 mg/dL (0.55-1.02); EST Glomerular Filtration Rate 108 mL/min (>60); Est Glom Filt Rate - Afr Amer 131 mL/min (>60); Estimated Creatinine Clearance 153.19 ml/min; Glucose 87 mg/dL (74-106); Potassium 3.6 mmol/L (3.5-5.1); Sodium Level 140 mmol/L (136-145)
[2024-02-25 16:37] LABS: Squamous Epithelial Cells - UA 0-5 SEEN /hpf (5-10)
[2024-02-25 16:48] LABS: hCG Titer Quant., Serum 6 mIU/mL (1-3)
[2024-02-25 17:12] VITALS: BP 124/78; PULSE 71; RESP 14; TEMP 36.1; O2SAT 99
== END 2024-02-25 17:16 | disposition home or self-care (01) ==
PROVIDERS: Physician Assistant; Emergency Provider Emergency Medicine; PCP Internal Medicine; Visit Provider Emergency Medicine
DX: R10.9 Unspecified abdominal pain (principal); R11.2 Nausea with vomiting, unspecified
CPT/HCPCS: 80048; 81001; 84702; 85025; 99283

== ENCOUNTER → 2024-02-26 | Outpatient (CLI) | payer OTHER, MEDICAID, SELFPAY ==
[2024-02-26 14:05] LABS: hCG Titer Quant., Serum 4 mIU/mL (1-3)
== END | disposition home or self-care (01) ==
LOC: LAB 13:09
PROVIDERS: PCP Internal Medicine; Referring Provider Advanced Practice Midwife; Visit Provider Advanced Practice Midwife
DX: Z34.90 Encounter for supervision of normal pregnancy, unspecified, unspecified trimester (principal)
CPT/HCPCS: 36415; 84702

== ENCOUNTER 2024-03-31 17:58 | Emergency (ER) | payer OTHER, MEDICAID, SELFPAY ==
[2024-03-31 17:59] VITALS: BP 166/91; PULSE 94; RESP 18; TEMP 36.4; O2SAT 98; BMI 38.6
== END 2024-03-31 19:20 | disposition left against medical advice (07) ==
LOC: ED 19:44
PROVIDERS: PCP Internal Medicine
DX: Z53.21 Procedure and treatment not carried out due to patient leaving prior to being seen by health care provider (principal)

== ENCOUNTER → 2024-04-12 | Outpatient (CLI) | payer OTHER, MEDICAID, SELFPAY ==
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
== END | disposition home or self-care (01) ==
LOC: MRI 12:33
PROVIDERS: PCP Internal Medicine; Referring Provider Nurse Practitioner Family; Visit Provider Nurse Practitioner Family
DX: S83.512A Sprain of anterior cruciate ligament of left knee, initial encounter (principal); S83.412A Sprain of medial collateral ligament of left knee, initial encounter; S83.242A Other tear of medial meniscus, current injury, left knee, initial encounter
CPT/HCPCS: 73721

== ENCOUNTER → 2024-07-01 | Outpatient (CLI) | payer MEDICAID, SELFPAY ==
[2024-07-01 12:19] LABS: Absolute Lymphocyte Count 1.79 X10^3/uL (0.83-4.51); Absolute Neutrophil Count 2.9 X10^3/uL (2.0-7.7); Basophil# 0.05 X10^3/uL; Basophil% 0.9 % (0-1); Eosinophil# 0.11 X10^3/uL; Eosinophils% 2.1 % (0-5); Hematocrit 43.8 % (37-47); Hemoglobin 14.3 g/dL (12.0-15.0); Lymphocyte # 1.79 X10^3/ul (0.83-4.51); Lymphocyte % 33.9 % (19-41); Mean Corp Hgb Conc 32.6 g/dL (32-36); Mean Corpuscular Hgb 28.3 pg (27.0-32.0); Mean Corpuscular Volume 86.7 fL (81-99); Mean Platelet Vol. 9.5 fl (6.2-12.0); Monocyte# 0.38 X10^3/uL; Monocyte% 7.2 % (0-10); NRBC Flagged by Analyzer 0 % (0-5); Neutrophil # 2.94 X10^3/uL (2.7-7.7); Neutrophil % 55.7 % (47-70); Platelet Count 408 K/mm3 (150-450); RBC Distribution Width CV 13.5 % (11.6-14.6); Red Blood Count 5.05 M/mm3 (4.2-5.4); White Blood Count 5.3 K/mm3 (4.4-11.0)
[2024-07-01 13:07] LABS: T4 Free Direct 0.99 ng/dL (0.76-1.46)
[2024-07-01 18:06] LABS: Internal QC Validated? YES +Cl - CLEAR BKGD; Pregnancy, Serum, hCG Quali. NEGATIVE Negative
== END | disposition home or self-care (01) ==
LOC: BIMLAB 08:39
PROVIDERS: PCP Internal Medicine; Referring Provider Internal Medicine; Visit Provider Internal Medicine
DX: F41.9 Anxiety disorder, unspecified (principal); F32.9 Major depressive disorder, single episode, unspecified; N91.2 Amenorrhea, unspecified
CPT/HCPCS: 36415; 84439; 84443; 84703; 85025

== ENCOUNTER → 2025-07-26 | Outpatient (CLI) | payer OTHER, SELFPAY ==
--- NOTE | 2025-07-26 09:09 | US_ITS ---
PROCEDURE: BREAST LIMITED UNILATERAL 07/26/2025 REASON FOR EXAM: F, Age 30 y/o , LEFT BREAST MASS Palpable lump in the upper-outer quadrant of the left breast. COMPARISON: Prior mammogram done earlier in the day.. TECHNIQUE: Procedure Code: USBRSTLIMIT Modality: US Procedure: BREAST LIMITED UNILATERAL. Targeted sonogram of the upper-outer quadrant of the left breast was examined. FINDINGS: No sonographic abnormality is seen. US/Breast Limited Unilateral IMPRESSION: No sonographic abnormality is seen. BI-RADS 1: NEGATIVE RECOMMENDATION: Routine annual follow-up in 1 Year Reading Location: [place] [id number]
--- NOTE | 2025-07-26 09:10 | BI_ITS ---
EXAM: DIAG MAMM W/CAD, BILAT 07/26/2025 CLINICAL HISTORY: F, Age 30 y/o , LEFT BREAST LUMP. Grandmothers with breast cancer. Aunts with breast cancers. TECHNIQUE: Procedure Code: [id number] Modality: MG Procedure: DIAG MAMM W/CAD, BILAT. COMPARISON: Baseline examination FINDINGS: TISSUE DENSITY: There are scattered areas of fibroglandular density. Bilateral Breast Mammographic Findings: No significant masses, calcifications or other abnormalities are identified. No suspicious masses, areas of developing architectural distortion, or suspicious calcifications. With the patient's history of a palpable lump in the upper lateral aspect of the left breast, targeted sonographic correlation recommended. BI/DIAG MAMM W/CAD, BILAT IMPRESSION: Unremarkable diagnostic mammogram. OVERALL FINAL ASSESSMENT BI-RADS 0: INCOMPLETE - NEED ADDITIONAL IMAGING EVALUATION. RECOMMENDATION: Ultrasound Recommended Additional Recommendation none A letter with findings and recommendations will be mailed to the patient. Reading Location: [place] [id number]
== END | disposition home or self-care (01) ==
LOC: OPBI 09:07
PROVIDERS: PCP Internal Medicine; Referring Provider Nurse Practitioner Women's Health; Visit Provider Nurse Practitioner Women's Health
DX: N63.21 Unspecified lump in the left breast, upper outer quadrant (principal)
CPT/HCPCS: 76642; 77062; 77066; G0279